=== PATIENT | male | born 1940 | race Caucasian/White ===

== ENCOUNTER → 2016-09-02 | Outpatient (CLI) | payer MEDICARE ==
[~2016-09-02] MED LIST: APIX2.5T PO; CARV12.5 PO; CRES10TA PO; DILT180C56 PO; FENO50TA PO; GLIM4 PO; JANU100T PO; LISI-360 PO; METF500 PO; OMEP20TA PO
[2016-09-02 07:55] LABS: BASOPHIL % 0.7 % (0.0-2.0); EOSINOPHIL # 0.3 TH/MM3 (0-0.4); HEMATOCRIT 43.7 % (39.0-51.0); HEMO FLAGS DIFF FINAL; LYMPH % 25.5 % (9.0-44.0); LYMPHOCYTE # 1.7 TH/MM3 (1.0-4.8); MEAN CELL VOLUME 85.2 FL (80.0-100.0); MEAN CORPUSCULAR HEMOGLOBIN 28.8 PG (27.0-34.0); MEAN CORPUSCULAR HGB CONC 33.8 % (32.0-36.0); MONO % 10.3 % (0.0-8.0); NEUT % 59.5 % (16.0-70.0); PLATELET COUNT 164 TH/MM3 (150-450); RED BLOOD COUNT 5.13 MIL/MM3 (4.50-5.90); RED CELL DISTRIBUTION WIDTH 14.9 % (11.6-17.2); WHITE BLOOD COUNT 6.7 TH/MM3 (4.0-11.0)
[2016-09-02 08:21] LABS: ANION GAP 10 MEQ/L (5-15); AST (GOT) 24 U/L (15-37); BICARBONATE 24.3 MEQ/L (21.0-32.0); BLOOD UREA NITROGEN 17 MG/DL (7-18); CHLORIDE 106 MEQ/L (98-107); GLOMERULAR FILTRATION RATE 69 ML/MIN (>89); GLUCOSE,FASTING 145 MG/DL (74-99); POTASSIUM 3.6 MEQ/L (3.5-5.1); SODIUM (NA) 140 MEQ/L (136-145)
[2016-09-02 08:23] LABS: BLOOD, URINE NEG (NEG); GLUCOSE,URINE NEG (NEG); KETONE, URINE NEG (NEG); NITRITE,URINE NEG (NEG); PH, URINE 5.5 (5.0-8.5); SQUAMOUS EPITHELIAL CELL URINE <1 /hpf (0-5); URINE COLOR YELLOW (YELLW/STRAW)
[2016-09-02 08:25] LABS: COMMENT (UR) CULTURE INDICATED; CULTURE IF INDICATED CULTURE INDICATED
[2016-09-02 08:31] LABS: ALKALINE PHOSPHATASE 63 U/L (45-117); ALT (GPT) 37 U/L (12-78); HDL CHOLESTEROL 45.5 MG/DL (40.0-60.0); LDL CHOLESTEROL 73 MG/DL (0-99); TOTAL BILIRUBIN ADULT 0.4 MG/DL (0.2-1.0)
[2016-09-02 17:32] LABS: HEMOGLOBIN A1a 0.9 %; HEMOGLOBIN A1b 2.2 %; HEMOGLOBIN Ao 82.3 %; HEMOGLOBIN LA1C 2.4 %; HEMOGLOBIN P3 4.3 %
== END ==
LOC: CLAB 07:18
PROVIDERS: ATTEND Internal Medicine
DX: I10 Essential (primary) hypertension (principal); E78.00 Pure hypercholesterolemia, unspecified; E11.65 Type 2 diabetes mellitus with hyperglycemia; B95.2 Enterococcus as the cause of diseases classified elsewhere; R82.90 Unspecified abnormal findings in urine; Z12.5 Encounter for screening for malignant neoplasm of prostate
CPT/HCPCS: 36415; 80053; 80061; 81001; 82043; 83036; 84443; 85025; 87086; G0103; 87077; 87186

== ENCOUNTER → 2016-12-17 | Outpatient (CLI) | payer MEDICARE ==
[2016-12-17 08:03] LABS: ANION GAP 9 MEQ/L (5-15); AST (GOT) 22 U/L (15-37); BICARBONATE 26.3 MEQ/L (21.0-32.0); BLOOD UREA NITROGEN 34 MG/DL (7-18); CHLORIDE 106 MEQ/L (98-107); GLOMERULAR FILTRATION RATE 27 ML/MIN (>89); GLUCOSE,FASTING 155 MG/DL (74-99); POTASSIUM 4.1 MEQ/L (3.5-5.1); SODIUM (NA) 141 MEQ/L (136-145)
[2016-12-17 08:06] LABS: ALKALINE PHOSPHATASE 67 U/L (45-117); ALT (GPT) 16 U/L (12-78); HDL CHOLESTEROL 44.1 MG/DL (40.0-60.0); LDL CHOLESTEROL 85 MG/DL (0-99); TOTAL BILIRUBIN ADULT 0.4 MG/DL (0.2-1.0)
[2016-12-17 12:36] LABS: HEMOGLOBIN A1a 1.2 %; HEMOGLOBIN A1b 2.1 %; HEMOGLOBIN Ao 81.1 %; HEMOGLOBIN LA1C 2.4 %; HEMOGLOBIN P3 4.2 %
== END ==
LOC: CLAB 07:13
PROVIDERS: ATTEND Internal Medicine
DX: E11.65 Type 2 diabetes mellitus with hyperglycemia (principal)
CPT/HCPCS: 36415; 80053; 80061; 83036

== ENCOUNTER 2017-06-06 14:27 | Inpatient (IN) | payer MEDICARE ==
[~2017-06-06] VITALS: Ht 175.3 cm; Wt 72.6 kg
[2017-06-06 14:30] VITALS: BP 130/89; PULSE 119; RESP 18; TEMP 98.6; O2SAT 90
[2017-06-06] MEDS ORDERED: MORPHINE SULFATE 4 MG/ML INJ IV PUSH ONE (15:00)
[2017-06-06] MEDS ORDERED: ONDANSETRON HCL 4 MG/2 ML VIAL IVP ONE (15:00)
[2017-06-06] MEDS ORDERED: SODIUM CHLORIDE 0.9% FLUSH 10 ML FLUSH IVF PRN (15:00)
--- NOTE | 2017-06-06 15:06 | PD ---
HPI . Dyspnea Chief Complaint: GI Complaint Time Seen by Provider: 14:55 Travel History International Travel<30 days: No Contact w/Intl Traveler<30days: No History of Present Illness HPI This patient presents with a chief complaint of dyspnea. Patient states that he had "food poisoning" last night. He states he had several episodes of emesis last night and then 3 more episodes of emesis today. He has not had any diarrhea. He does admit to some diffuse abdominal pain which she believes is soreness due to vomiting. He states that he had the onset of the shortness of breath at about the same time that he started vomiting. He has not noted any exacerbating or relieving factors as far as shortness of breath is concerned. He denies any history of COPD or CHF. He has not had a cough or fever. The dyspnea is mild. PFSH Past Medical History Hx Anticoagulant Therapy: Yes Arthritis: No Asthma: No Atrial Fibrillation: Yes Autoimmune Disease: No Blood Disorders: No Anxiety: No Depression: No Heart Rhythm Problems: Yes (A-Fib) Cancer: No Cardiac Catheterization: Yes Cardiovascular Problems: Yes High Cholesterol: Yes Chemotherapy: No Chest Pain: No Congestive Heart Failure: No COPD: No Cerebrovascular Accident: Yes Coronary Artery Disease: Yes Diabetes: Yes Diminished Hearing: No Endocrine: Yes Gastrointestinal Disorders: Yes GERD: No Glaucoma: No Genitourinary: Yes Headaches: No Hepatitis: No Hiatal Hernia: Yes (REPAIRED WITH MESH) Hypertension: Yes Immune Disorder: No Implanted Vascular Access Dvce: Yes Kidney Stones: Yes Musculoskeletal: Yes Neurologic: Yes (TIA SEP 2008 AND CVA HX) Psychiatric: No Reproductive: No Respiratory: Yes Migraines: No Myocardial Infarction: No Radiation Therapy: No Renal Failure: No Seizures: No Sleep Apnea: No Thyroid Disease: No Ulcer: No Past Surgical History Abdominal Surgery: Yes (HIATAL HERNIA; LEFT AND RIGHT INGUINAL HERNIA) AICD: No Arteriovenous Shunt: No Body Medical Devices: WIRE MESH R/T HERNIA REPAIR/3 STENTS Cardiac Surgery: Yes (HX OF CAD WITH STENT PLACEMENT.) Coronary Artery Bypass Graft: No Coronary Stent: Yes ("3 STENTS,TWO STENTS IN 2005 AND ONE STENT IN 1999") Ear Surgery: No Endocrine Surgery: No Eye Surgery: Yes (TRINI CATARCTS REMOVED [id number]) Genitourinary Surgery: Yes ( RENAL CALCULI) Insulin Pump: No Joint Replacement: No Pacemaker: No Other Surgery: Yes ("EARLY 70'S,RIGHT AND LEFT INGUINAL HERNIAS") Social History Alcohol Use: No Tobacco Use: No (quit 20 years ago) Substance Use: No Allergies-Medications (Allergen,Severity, Reaction): Coded Allergies: penicillin G (Unverified Allergy, Unknown, 06/06/17) acetaminophen (Unverified Adverse Reaction, Intermediate, VOMITING, ) propoxyphene (Unverified Adverse Reaction, Intermediate, VOMITING, ) Reported Meds & Prescriptions Reported Meds & Active Scripts Active Review of Systems Except as stated in HPI: all other systems reviewed are Neg General / Constitutional: No: Fever, Chills Cardiovascular: No: Chest Pain or Discomfort Respiratory: Positive: Shortness of Breath Gastrointestinal: Positive: Nausea, Vomiting (last episode of emesis was this morning.), Abdominal Pain, No: Diarrhea Genitourinary: No: Urgency, Frequency, Dysuria Physical Exam Narrative GENERAL: A found the patient sitting on the side of the bed panting. However, he is able to speak in complete sentences and his sats are in the mid 90s. SKIN: warm/dry. HEAD: Normocephalic. Atraumatic. EYES: Pupils equal and round. No scleral icterus. No injection or drainage. ENT: No nasal bleeding or discharge. Mucous membranes pink and moist. NECK: Trachea midline. Full range of motion without pain.. CARDIOVASCULAR: Regular rate and rhythm. Heart sounds were normal. RESPIRATORY: No accessory muscle use. Clear to auscultation. Breath sounds equal bilaterally. He is hyperventilating but his lungs are clear. GASTROINTESTINAL: Abdomen soft. Left sided tenderness. No guarding or rebound. Bowel sounds present. Nondistended. MUSCULOSKELETAL: No obvious deformities. NEUROLOGICAL: Awake and alert. No obvious cranial nerve deficits. Motor grossly within normal limits. Normal speech. PSYCHIATRIC: Appropriate mood and affect; insight and judgment normal. Data Data Last Documented VS Vital Signs Date Time Temp Pulse Resp B/P (MAP) Pulse Ox O2 Delivery O2 Flow Rate FiO2 06/06/17 16:18 18 06/06/17 15:42 98 Room Air 06/06/17 15:42 104 133/91 (105) 06/06/17 14:30 98.6 Orders Orders Complete Blood Count With Diff (06/06/17 14:55) Comprehensive Metabolic Panel (06/06/17 14:55) B-Type Natriuretic Peptide (06/06/17 14:55) Troponin I (06/06/17 14:55) Urinalysis - C+S If Indicated (06/06/17 14:55) Iv Access Insert/Monitor (06/06/17 14:55) Electrocardiogram (06/06/17 14:55) Ecg Monitoring (06/06/17 14:55) Oximetry (06/06/17 14:55) Oxygen Administration (06/06/17 14:55) Chest, Single Ap (06/06/17 14:55) Sodium Chloride 0.9% Flush (Ns Flush) (06/06/17 15:00) Lipase (06/06/17 14:55) Lactic Acid (06/06/17 14:55) Ct Abd/Pel W Iv Contrast(Rout) (06/06/17 14:55) Morphine Inj (Morphine Inj) (06/06/17 15:00) Ondansetron Inj (Zofran Inj) (06/06/17 15:00) Nitroglycerin 2% Oint (Nitroglycerin 2% (06/06/17 16:45) Furosemide Inj (Lasix Inj) (06/06/17 16:45) Urine Culture (06/06/17 16:10) Admit Order (Ed Use Only) (06/06/17 ) Vital Signs (Adult) Q4H (06/06/17 17:18) Diet Heart Healthy (06/06/17 Dinner) Activity Oob With Assistance (06/06/17 17:18) Notify Dr: Other (06/06/17 17:18) Labs Laboratory Tests Test 06/06/17 15:35 06/06/17 16:10 White Blood Count 9.0 TH/MM3 Red Blood Count 5.12 MIL/MM3 Hemoglobin 15.0 GM/DL Hematocrit 44.1 % Mean Corpuscular Volume 86.2 FL Mean Corpuscular Hemoglobin 29.2 PG Mean Corpuscular Hemoglobin Concent 33.9 % Red Cell Distribution Width 14.5 % Platelet Count 191 TH/MM3 Mean Platelet Volume 7.9 FL Neutrophils (%) (Auto) 73.1 % Lymphocytes (%) (Auto) 16.0 % Monocytes (%) (Auto) 8.6 % Eosinophils (%) (Auto) 1.5 % Basophils (%) (Auto) 0.8 % Neutrophils # (Auto) 6.6 TH/MM3 Lymphocytes # (Auto) 1.4 TH/MM3 Monocytes # (Auto) 0.8 TH/MM3 Eosinophils # (Auto) 0.1 TH/MM3 Basophils # (Auto) 0.1 TH/MM3 CBC Comment DIFF FINAL Differential Comment Blood Urea Nitrogen 16 MG/DL Creatinine 1.04 MG/DL Random Glucose 178 MG/DL Total Protein 7.3 GM/DL Albumin 3.8 GM/DL Calcium Level 8.6 MG/DL Alkaline Phosphatase 70 U/L Aspartate Amino Transf (AST/SGOT) 26 U/L Alanine Aminotransferase (ALT/SGPT) 29 U/L Total Bilirubin 0.9 MG/DL Sodium Level 137 MEQ/L Potassium Level 3.8 MEQ/L Chloride Level 105 MEQ/L Carbon Dioxide Level 23.8 MEQ/L Anion Gap 8 MEQ/L Estimat Glomerular Filtration Rate 69 ML/MIN Lactic Acid Level 1.3 mmol/L Troponin I 0.27 NG/ML B-Type Natriuretic Peptide 801 PG/ML Lipase 95 U/L Urine Color YELLOW Urine Turbidity CLEAR Urine pH 5.5 Urine Specific [place] 1.024 Urine Protein 300 mg/dL Urine Glucose (UA) 300 mg/dL Urine Ketones NEG mg/dL Urine Occult Blood SMALL Urine Nitrite NEG Urine Bilirubin NEG Urine Urobilinogen LESS THAN 2.0 MG/DL Urine Leukocyte Esterase TRACE Urine RBC 3 /hpf Urine WBC 9 /hpf Urine Squamous Epithelial Cells <1 /hpf Urine Mucus FEW /lpf Microscopic Urinalysis Comment CULTURE INDICATED MDM Medical Decision Making Medical Screen Exam Complete: Yes Emergency Medical Condition: Yes Medical Record Reviewed: Yes (medical history is significant for CAD status post stents 2, AF, DM, HTN.) Interpretation(s) EKG shows atrial fibrillation with a rate of 106. No acute ischemic changes. Differential Diagnosis Differential diagnosis of dyspnea includes but is not limited to congestive heart failure, pneumonia, wheezing, pneumothorax, pulmonary embolism Narrative Course This patient presents with dyspnea which started after he started vomiting. His lungs are clear and his sats are good. However, he is tachypneic. I have initiated a dyspnea workup including a chest x-ray, BNP, troponin and EKG. I have also ordered a CT of his abdomen because of the abdominal tenderness. Abdominal labs are also pending. CBC & BMP Diagram 06/06/17 15:35 Total Protein 7.3, Albumin 3.8, Calcium Level 8.6, Alkaline Phosphatase 70, Aspartate Amino Transf (AST/SGOT) 26, Alanine Aminotransferase (ALT/SGPT) 29, Total Bilirubin 0.9 trop 0.27 I have not initiated Lovenox or heparin for this patient because he is on Eliquis. Physician Communication Physician Communication Dr. Evan Lester requested that the patient be admitted to the hospitalist service. Dr. Yu will admit. Diagnosis Primary Impression: NSTEMI (non-ST elevated myocardial infarction) Admitting Information Admitting Physician Requests: Admit Disposition: DISCHARGE HOME Condition: Stable Ramila Valles MD Jun 06, 2017 15:06
--- NOTE | 2017-06-06 15:22 | RADRPT ---
EXAM DATE/TIME: 06/06/2017 15:01 [facility] COMPARISON: CHEST SINGLE AP, May 06, 2016, 17:52. INDICATIONS : Short of breath. MEDICAL HISTORY : Diabetes mellitus type II. Hypertension SURGICAL HISTORY : Coronary artery stent. Hiatal hernia surgery. ENCOUNTER: Initial ACUITY: 1 day PAIN SCORE: 0/10 LOCATION: Bilateral FINDINGS: A single AP portable erect view of the chest was obtained and now demonstrates mild streaky opacity i n the perihilar regions both lung bases left greater than right. The heart size is mildly enlarged. T here is blunting of the lateral costophrenic angle. Atherosclerotic change is again noted in the aort a. The bony thorax remains intact with overlying electrocardiogram leads. CONCLUSION: New mild streaky opacity in both lungs left greater than right with mild cardiomegaly and small left effusion. The findings are most consistent with mild or early congestive heart failure. Jasbir Xie MD on June 06, 2017 at 15:19 Board Certified Radiologist. This report was verified electronically.
[2017-06-06 15:42] VITALS: BP 133/91; PULSE 104; RESP 18; O2SAT 98
[2017-06-06 15:44] LABS: AUTOMATED NEUTROPHIL # 6.6 TH/MM3 (1.8-7.7); BASOPHIL # 0.1 TH/MM3 (0-0.2); BASOPHIL % 0.8 % (0.0-2.0); EOSINOPHIL # 0.1 TH/MM3 (0-0.4); EOSINOPHIL % 1.5 % (0.0-4.0); HEMATOCRIT 44.1 % (39.0-51.0); LYMPHOCYTE # 1.4 TH/MM3 (1.0-4.8); MEAN CELL VOLUME 86.2 FL (80.0-100.0); MEAN CORPUSCULAR HEMOGLOBIN 29.2 PG (27.0-34.0); MEAN CORPUSCULAR HGB CONC 33.9 % (32.0-36.0); MEAN PLATELET VOLUME 7.9 FL (7.0-11.0); MONO % 8.6 % (0.0-8.0); MONOCYTE # 0.8 TH/MM3 (0-0.9); NEUT % 73.1 % (16.0-70.0); PLATELET COUNT 191 TH/MM3 (150-450); RED BLOOD COUNT 5.12 MIL/MM3 (4.50-5.90); RED CELL DISTRIBUTION WIDTH 14.5 % (11.6-17.2)
[2017-06-06 15:57] LABS: ALBUMIN 3.8 GM/DL (3.4-5.0); ALT (GPT) 29 U/L (12-78); AST (GOT) 26 U/L (15-37); BICARBONATE 23.8 MEQ/L (21.0-32.0); BLOOD UREA NITROGEN 16 MG/DL (7-18); CALCIUM 8.6 MG/DL (8.5-10.1); CHLORIDE 105 MEQ/L (98-107); CREATININE 1.04 MG/DL (0.60-1.30); GLOMERULAR FILTRATION RATE 69 ML/MIN (>89); GLUCOSE,RANDOM 178 MG/DL (74-106); LIPASE 95 U/L (73-393); SODIUM (NA) 137 MEQ/L (136-145)
[2017-06-06 16:00] LABS: ALKALINE PHOSPHATASE 70 U/L (45-117); TOTAL BILIRUBIN ADULT 0.9 MG/DL (0.2-1.0); TOTAL PROTEIN 7.3 GM/DL (6.4-8.2); TROPONIN I 0.27 NG/ML (0.02-0.05)
[2017-06-06] MEDS ORDERED: NITROGLYCERIN 2% OINT 1 GM PACKET TOPICAL ONE (16:45)
[2017-06-06] MEDS ORDERED: FUROSEMIDE 40 MG/4 ML VIAL IV PUSH ONE (16:45)
[2017-06-06 16:52] LABS: BILIRUBIN, URINE NEG (NEG); BLOOD, URINE SMALL (NEG); GLUCOSE,URINE 300 mg/dL (NEG); KETONE, URINE NEG (NEG); MUCUS URINE FEW /lpf (OCC); NITRITE,URINE NEG (NEG); PH, URINE 5.5 (5.0-8.5); SQUAMOUS EPITHELIAL CELL URINE <1 /hpf (0-5); URINE COLOR YELLOW (YELLW/STRAW); URINE LEUKOCYTE ESTERASE TRACE (NEG)
--- NOTE | 2017-06-06 17:18 | RADRPT ---
EXAM DATE/TIME: 06/06/2017 16:35 [facility] COMPARISON: CT ABDOMEN & PELVIS W CONTRAST, May 06, 2016, 21:50. INDICATIONS : Abdomen pain. IV CONTRAST: 100 cc Omnipaque 350 (iohexol) IV ORAL CONTRAST: No oral contrast ingested. RADIATION DOSE: 6.69 CTDIvol (mGy) MEDICAL HISTORY : Stroke. Cardiovascular disease Hypertension. SURGICAL HISTORY : None. ENCOUNTER: Initial ACUITY: 1 day PAIN SCALE: 5/10 LOCATION: Bilateral abdomen. TECHNIQUE: Volumetric scanning of the abdomen and pelvis was performed. Using automated exposure control and ad justment of the mA and/or kV according to patient size, radiation dose was kept as low as reasonably achievable to obtain optimal diagnostic quality images. DICOM format image data is available electro nically for review and comparison. FINDINGS: LOWER LUNGS: Bilateral pleural effusions measuring up to 4.2 cm. There is some mild adjacent bibasilar atelectasi s. LIVER: Diffuse mild fatty change of the liver. No focal lesions. Hemoclips in the claudio from prior cholecy stectomy. SPLEEN: Normal size without lesion. PANCREAS: Within normal limits. KIDNEYS: Normal in size and shape. There is no mass, stone or hydronephrosis. Bilateral nonobstructing stone s, the largest in the mid/upper pole left kidney measuring 6 mm; the stones are stable compared to pr ior CT April 2016. ADRENAL GLANDS: Within normal limits. VASCULAR: There is no aortic aneurysm. BOWEL/MESENTERY: No dilated loops of small or large bowel. Multiple diverticula in the sigmoid and left colon without radiographic evidence of diverticulitis. The appendix is identified in the right lower quadrant has a normal size and appearance. ABDOMINAL WALL: Within normal limits. RETROPERITONEUM: There is no lymphadenopathy. BLADDER: No wall thickening or mass. REPRODUCTIVE: Within normal limits. INGUINAL: Left inguinal surgery with mesh and anchor screws. No inguinal hernia. MUSCULOSKELETAL: Within normal limits for patient age. CONCLUSION: 1. Moderate-sized bilateral pleural effusions. 2. Diverticulosis of the sigmoid and left colon without radiographic evidence of diverticulitis. 3. Nonobstructing bilateral renal stones, unchanged from prior. Clarence Talbot MD on June 06, 2017 at 17:09 Board Certified Radiologist. This report was verified electronically.
[2017-06-06] MEDS ORDERED: SODIUM CHLORIDE 0.9% FLUSH 10 ML FLUSH IV FLUSH PRN (18:30)
[2017-06-06 18:34] VITALS: BP 134/97
[2017-06-06 19:00] VITALS: BP 178/89; PULSE 123; RESP 22; TEMP 97.3; O2SAT 93
[2017-06-06 20:00] VITALS: BP 112/58; PULSE 53; RESP 18; TEMP 97.9; O2SAT 98
[2017-06-06 20:21] VITALS: PULSE 94
[2017-06-06] MEDS: SODIUM CHLORIDE 0.9% FLUSH 10 ML FLUSH IV FLUSH SCH (20:57)
[2017-06-07] VITALS (7 sets, daily range): BP systolic 92–158; BP diastolic 55–84; PULSE 67–114; RESP 19–22; TEMP 97.4–98; O2SAT 89–97
[2017-06-07] MEDS ORDERED: CRES10TA PO ×2 (00:55→14:58)
[2017-06-07] MEDS ORDERED: LISI-360 PO (00:55)
[2017-06-07] MEDS ORDERED: CARV12.5 PO ×2 (00:55→15:35)
[2017-06-07] MEDS ORDERED: METF500 PO (00:55)
[2017-06-07] MEDS ORDERED: OMEP20TA PO ×2 (00:55→15:35)
[2017-06-07] MEDS ORDERED: JANU100T PO (00:55)
[2017-06-07] MEDS ORDERED: DILT180C56 PO (00:55)
[2017-06-07] MEDS ORDERED: FENO50TA PO (00:55)
[2017-06-07] MEDS ORDERED: GLIM4 PO ×2 (00:55→14:59)
[2017-06-07] MEDS: ONDANSETRON HCL 4 MG/2 ML VIAL IV PUSH PRN ×2 (01:42→12:39)
[2017-06-07] MEDS ORDERED: CARVEDILOL 6.25 MG TAB PO ONE (02:00)
--- NOTE | 2017-06-07 02:06 | HHI.HP ---
HPI Service [facility] Primary Care Physician Valdez Egan MD Admission Diagnosis CHF. elevated trop Diagnoses: Travel History International Travel<30 Days: No Contact w/Intl Traveler <30 Da: No History of Present Illness 76-year-old male with a history of CAD, hypertension, atrial fibrillation who presents with diffuse crampy abdominal pain starting after dinner around 8 PM on 06/05, accompanied by nausea, multiple episodes of nonbloody vomiting. He also reports chest pressure starting on 06/05 around 8 PM as well, however this resolved on presentation to the ER. Did receive Nitropaste. Patient reports that nausea is improving, however still present. Denies any fevers or chills. Reports feeling fine prior to onset of nausea and vomiting. Review of Systems Except as stated in HPI: all other systems reviewed are Neg Past Family Social History Past Medical History CAD with stenting -Baldo 2012 nonischemic. Heart catheterization in 2002 showed severe small vessel disease. Recent chest pain rule out April 2016. Atrial fibrillation Hypertension Hyperlipidemia GERD Diabetes mellitus on oral meds Past Surgical History Heart catheterization with stenting. Inguinal hernia surgery Cataracts Kidney stones removed. Allergies: Coded Allergies: penicillin G (Unverified Allergy, Unknown, 06/06/17) acetaminophen (Unverified Adverse Reaction, Intermediate, VOMITING, ) propoxyphene (Unverified Adverse Reaction, Intermediate, VOMITING, ) Family History Father from heart attack at age 66. Mother from old age. Social History Nonsmoker. Nondrinker. Denies illicit drugs. Physical Exam Vital Signs Vital Signs Date Time Temp Pulse Resp B/P (MAP) Pulse Ox O2 Delivery O2 Flow Rate FiO2 06/07/17 00:00 97.7 86 20 158/84 (108) 97 06/07/17 00:00 Room Air 06/06/17 20:21 94 06/06/17 20:00 97.9 53 18 112/58 (76) 98 06/06/17 20:00 Room Air 06/06/17 19:00 97.3 123 22 178/89 (118) 93 06/06/17 18:34 100 18 134/97 (109) 97 Nasal Cannula 2.00 06/06/17 16:18 18 06/06/17 15:42 98 Room Air 06/06/17 15:42 104 18 133/91 (105) 98 Room Air 06/06/17 14:30 98.6 119 18 130/89 (103) 90 Physical Exam GENERAL: This is a well-nourished, well-developed patient, appears nauseous. alert and oriented 3. SKIN: No rashes, ecchymoses or lesions. Cool and dry. HEAD: Atraumatic. Normocephalic. No temporal or scalp tenderness. EYES: Pupils equal round and reactive. Extraocular motions intact. No scleral icterus. No injection or drainage. ENT: Nose without bleeding, purulent drainage or septal hematoma. Throat without erythema, tonsillar hypertrophy or exudate. Uvula midline. Airway patent. NECK: Trachea midline. No JVD or lymphadenopathy. Supple, nontender, no meningeal signs. CARDIOVASCULAR: Regular rate and rhythm without murmurs, gallops, or rubs. RESPIRATORY: Clear to auscultation. Breath sounds equal bilaterally. No wheezes , rales, or rhonchi. GASTROINTESTINAL: Abdomen soft, non-tender, nondistended. No hepato-splenomegaly , or palpable masses. No guarding. MUSCULOSKELETAL: Extremities without clubbing, cyanosis, or edema. No joint tenderness, effusion, or edema noted. No calf tenderness. Negative Homans sign bilaterally. NEUROLOGICAL: Awake and alert. Cranial nerves II through XII intact. Motor and sensory grossly within normal limits. Five out of 5 muscle strength in all muscle groups. Normal speech. Laboratory Laboratory Tests Test 06/06/17 15:35 06/06/17 16:10 06/07/17 00:55 White Blood Count 9.0 Red Blood Count 5.12 Hemoglobin 15.0 Hematocrit 44.1 Mean Corpuscular Volume 86.2 Mean Corpuscular Hemoglobin 29.2 Mean Corpuscular Hemoglobin Concent 33.9 Red Cell Distribution Width 14.5 Platelet Count 191 Mean Platelet Volume 7.9 Neutrophils (%) (Auto) 73.1 Lymphocytes (%) (Auto) 16.0 Monocytes (%) (Auto) 8.6 Eosinophils (%) (Auto) 1.5 Basophils (%) (Auto) 0.8 Neutrophils # (Auto) 6.6 Lymphocytes # (Auto) 1.4 Monocytes # (Auto) 0.8 Eosinophils # (Auto) 0.1 Basophils # (Auto) 0.1 CBC Comment DIFF FINAL Differential Comment Blood Urea Nitrogen 16 Creatinine 1.04 Random Glucose 178 Total Protein 7.3 Albumin 3.8 Calcium Level 8.6 Alkaline Phosphatase 70 Aspartate Amino Transf (AST/SGOT) 26 Alanine Aminotransferase (ALT/SGPT) 29 Total Bilirubin 0.9 Sodium Level 137 Potassium Level 3.8 Chloride Level 105 Carbon Dioxide Level 23.8 Anion Gap 8 Estimat Glomerular Filtration Rate 69 Lactic Acid Level 1.3 Troponin I 0.27 0.26 B-Type Natriuretic Peptide 801 Lipase 95 Urine Color YELLOW Urine Turbidity CLEAR Urine pH 5.5 Urine Specific [place] 1.024 Urine Protein 300 Urine Glucose (UA) 300 Urine Ketones NEG Urine Occult Blood SMALL Urine Nitrite NEG Urine Bilirubin NEG Urine Urobilinogen LESS THAN 2.0 Urine Leukocyte Esterase TRACE Urine RBC 3 Urine WBC 9 Urine Squamous Epithelial Cells <1 Urine Mucus FEW Microscopic Urinalysis Comment CULTURE INDICATED Date/Time Source Procedure Growth Status 06/06/17 16:10 Urine Clean Catch Urine Culture Pending Received Result Diagram: 06/06/17 1535 06/06/17 1535 Imaging Last Impressions Chest X-Ray 06/06/17 126 Signed Impressions: Service Date/Time: Tuesday, June 06, 2017 15:01 - CONCLUSION: New mild streaky opacity in both lungs left greater than right with mild cardiomegaly and small left effusion. The findings are most consistent with mild or early congestive heart failure. Jasbir Xie MD Abdomen/Pelvis CT 06/06/17 [id number] Signed Impressions: Service Date/Time: Tuesday, June 06, 2017 16:35 - CONCLUSION: 1. Moderate-sized bilateral pleural effusions. 2. Diverticulosis of the sigmoid and left colon without radiographic evidence of diverticulitis. 3. Nonobstructing bilateral renal stones, unchanged from prior. MD Lex Castilloi VTE Risk Assessment Caprini VTE Risk Assessment: Mod/High Risk (score >= 2) Caprini Risk Assessment Model Point Value = 1 Point Value = 2 Point Value = 3 Point Value = 5 Age 41-60 Minor surgery BMI > 25 kg/m2 Swollen legs Varicose veins or History of unexplained or recurrent spontaneous Oral contraceptives or hormone replacement Sepsis (< 1 month) Serious lung disease, including pneumonia (< 1 month) Abnormal pulmonary function Acute myocardial infarction Congestive heart failure (< 1 month) History of inflammatory bowel disease Medical patient at bed rest Age 61-74 Arthroscopic surgery Major open surgery (> 45 min) Laparoscopic surgery (> 45 min) Malignancy Confined to bed (> 72 hours) Immobilizing plaster cast Central venous access Age >= 75 History of VTE Family history of VTE Factor V Leiden Prothrombin [id number] Lupus anticoagulant Anticardiolipin antibodies Elevated serum homocysteine Heparin-induced thrombocytopenia Other congenital or acquired thrombophilia Stroke (< 1 month) Elective arthroplasty Hip, pelvis, or leg fracture Acute spinal cord injury (< 1 month) Prophylaxis Regimen Total Risk Factor Score Risk Level Prophylaxis Regimen 0-1 Low Early ambulation 2 Moderate Order ONE of the following: *Sequential Compression Device (SCD) *Heparin 5000 units SQ BID 3-4 Higher Order ONE of the following medications: *Heparin 5000 units SQ TID *Enoxaparin/Lovenox 40 mg SQ daily (WT < 150 kg, CrCl > 30 mL/min) *Enoxaparin/Lovenox 30 mg SQ daily (WT < 150 kg, CrCl > 10-29 mL/min) *Enoxaparin/Lovenox 30 mg SQ BID (WT < 150 kg, CrCl > 30 mL/min) AND/OR *Sequential Compression Device (SCD) 5 or more Highest Order ONE of the following medications: *Heparin 5000 units SQ TID (Preferred with Epidurals) *Enoxaparin/Lovenox 40 mg SQ daily (WT < 150 kg, CrCl > 30 mL/min) *Enoxaparin/Lovenox 30 mg SQ daily (WT < 150 kg, CrCl > 10-29 mL/min) *Enoxaparin/Lovenox 30 mg SQ BID (WT < 150 kg, CrCl > 30 mL/min) AND *Sequential Compression Device (SCD) Assessment and Plan Assessment and Plan //Nausea and vomiting. //Suspected gastroenteritis -Appears to be improving. Likely food poisoning. -LFTs, lipase within normal limits. -Could be atypical presentation of patient's NSTEMI -Zofran when necessary. -Appears euvolemic. Avoid aggressive diuresis, avoid hydration as BNP is 800. -Continue to monitor //CHF exacerbation. //Bilateral pulmonary edema, with bilateral pleural effusions on chest x-ray. -BNP in the 800s on admission. -Echocardiogram pending. -Trending EKGs and troponins as below. Cardiology consulted. -Place on fluid restrictions. As patient is nauseous and vomiting at this time , will avoid aggressive diuresis at this time. Continue to monitor //NSTEMI. //CAD -Currently resolved after nitro paste in the ED. -Troponin 0.26. Possibly secondary to demand ischemia from nausea and vomiting. EKG with no acute changes. -Trend troponins, EKGs. Cardiology consulted. Appreciate assistance. //Atrial fibrillation -Continue diltiazem, carvedilol. cont Eliquis //Diabetes mellitus. Diabetic diet. Insulin by scale. Hold by mouth home meds. //Hypertension. Blood pressure acceptable. Continue home blood pressure meds. //Hyperlipidemia. Continue home medications. Discussed Condition With Patient, nurse Physician Certification 2 Midnight Certification Type: Admission for Inpatient Services Order for Inpatient Services The services are ordered in accordance with Medicare regulations or non- Medicare payer requirements, as applicable. In the case of services not specified as inpatient-only, they are appropriately provided as inpatient services in accordance with the 2-midnight benchmark. Estimated LOS (days): 2 days is the estimated time the patient will need to remain in the hospital, assuming treatment plan goals are met and no additional complications. Post-Hospital Plan: Not yet determined Victor Hugo Richter MD Jun 07, 2017 02:06
[2017-06-07] MEDS ORDERED: INSULIN ASPART SUPPLEMENTAL SCALE SQ SCH (08:00)
[2017-06-07] MEDS: INSULIN ASPART SUPPLEMENTAL SCALE SQ SCH ×5 (08:00→20:53)
[2017-06-07] MEDS ORDERED: FUROSEMIDE 40 MG/4 ML VIAL IVP SCH (09:00)
[2017-06-07] MEDS ORDERED: APIXABAN 2.5 MG TABLET PO SCH (09:00)
[2017-06-07 09:14] LABS: BICARBONATE 27.5 MEQ/L (21.0-32.0); CALCIUM 8.6 MG/DL (8.5-10.1); CREATININE 1.1 MG/DL (0.60-1.30)
[2017-06-07] MEDS: PANTOPRAZOLE SOD 20 MG DELAYED RELEASE TAB PO SCH (09:20)
[2017-06-07] MEDS: CARVEDILOL 6.25 MG TAB PO SCH ×2 (09:20→20:52)
[2017-06-07] MEDS: DILTIAZEM-CD 180 MG CAP ER PO SCH (09:20)
[2017-06-07] MEDS: ASPIRIN 81 MG CHEW TAB CHEW SCH (09:21)
[2017-06-07] MEDS: ATORVASTATIN 20 MG TAB PO SCH (09:21)
--- NOTE | 2017-06-07 12:38 | HHI.PR ---
Subjective Remarks Follow-up nausea, vomiting, abdominal pain and chest pain. Complains of dry heaves. Also developed dizziness while being examined. He was sitting upright at that time. Improved shortness of breath on room air but prefers to use oxygen. Denies sick contacts, recent travel, well water and seafood ingestion. 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 Objective Vitals Vital Signs Date Time Temp Pulse Resp B/P (MAP) Pulse Ox O2 Delivery O2 Flow Rate FiO2 06/07/17 08:00 97.8 90 20 92/55 (67) 89 06/07/17 04:00 Room Air 06/07/17 04:00 97.9 114 22 94/55 (68) 94 06/07/17 00:00 97.7 86 20 158/84 (108) 97 06/07/17 00:00 Room Air 06/06/17 20:21 94 06/06/17 20:00 97.9 53 18 112/58 (76) 98 06/06/17 20:00 Room Air 06/06/17 19:00 97.3 123 22 178/89 (118) 93 06/06/17 18:34 100 18 134/97 (109) 97 Nasal Cannula 2.00 06/06/17 16:18 18 06/06/17 15:42 98 Room Air 06/06/17 15:42 104 18 133/91 (105) 98 Room Air 06/06/17 14:30 98.6 119 18 130/89 (103) 90 I/O 06/06/17 06/06/17 06/06/17 06/07/17 06/07/17 06/07/17 07:00 15:00 23:00 07:00 15:00 23:00 Intake Total 240 ml Balance 240 ml Intake Oral 240 ml # Voids 3 # Bowel Movements 0 Result Diagram: 06/06/17 1535 06/07/17 0730 Imaging Last Impressions Chest X-Ray 06/06/[id number] Signed Impressions: Service Date/Time: Tuesday, June 06, 2017 15:01 - CONCLUSION: New mild streaky opacity in both lungs left greater than right with mild cardiomegaly and small left effusion. The findings are most consistent with mild or early congestive heart failure. Jasbir Xie MD Abdomen/Pelvis CT [id number]/06/171454 Signed Impressions: Service Date/Time: Tuesday, June 06, 2017 16:35 - CONCLUSION: 1. Moderate-sized bilateral pleural effusions. 2. Diverticulosis of the sigmoid and left colon without radiographic evidence of diverticulitis. 3. Nonobstructing bilateral renal stones, unchanged from prior. Clarence Talbot MD Objective Remarks GENERAL: This is a well-nourished, well-developed patient, appears nauseous. alert and oriented 3. SKIN: No rashes, ecchymoses or lesions. Cool and dry. NECK: Trachea midline. No JVD or lymphadenopathy. Supple, nontender, no meningeal signs. CARDIOVASCULAR: Regular rate and rhythm without murmurs, gallops, or rubs. RESPIRATORY: Decreased Breath sounds equal bilaterally. No wheezes, rales, or rhonchi. GASTROINTESTINAL: Abdomen soft, non-tender, nondistended. No guarding. MUSCULOSKELETAL: Extremities without clubbing, cyanosis, or edema. No joint tenderness, effusion, or edema noted. No calf tenderness. Negative Homans sign bilaterally. NEUROLOGICAL: Awake and alert. Cranial nerves II through XII intact. Motor and sensory grossly within normal limits. Five out of 5 muscle strength in all muscle groups. Normal speech. A/P Problem List: (1) NSTEMI (non-ST elevated myocardial infarction) ICD Code: I21.4 - Non-ST elevation (NSTEMI) myocardial infarction Status: Acute Assessment and Plan Nausea and vomiting. Suspected gastroenteritis -Appears to be improving. Likely food poisoning. -LFTs, lipase within normal limits. -Could be atypical presentation of patient's NSTEMI -Zofran when necessary. -Appears euvolemic. Avoid aggressive diuresis, avoid hydration as BNP is 800. -Continue to monitor CHF exacerbation. Bilateral pulmonary edema, with bilateral pleural effusions on chest x-ray. -BNP in the 800s on admission. -Echocardiogram pending. -Cardiology consulted. -Place on fluid restrictions. As patient is nauseous and vomiting at this time , will avoid aggressive diuresis at this time. Continue to monitor NSTEMI. CAD -Currently resolved after nitro paste in the ED. -Troponin 0.26. Possibly secondary to demand ischemia from nausea and vomiting. -EKG with nonspecific ST-T changes -Continue aspirin, Coreg and Lipitor Atrial fibrillation with controlled medical response -Continue diltiazem, carvedilol. cont Eliquis Diabetes mellitus. Diabetic diet. Insulin by scale. Hold by mouth home meds. Hypertension. Blood pressure low normal. Continue home blood pressure meds with hold parameters. Hyperlipidemia. Continue home medications. Discharge Planning Awaiting cardiology input. May need to hold Eliquis if cardiac intervention is recommended Galdino Martinez MD Jun 07, 2017 12:38
[2017-06-07] MEDS ORDERED: FUROSEMIDE 20 MG/2 ML VIAL IV PUSH ONE (13:30)
[2017-06-07] MEDS: SODIUM CHLORIDE 0.9% FLUSH 10 ML FLUSH IV FLUSH SCH ×2 (14:09→20:52)
[2017-06-07] MEDS ORDERED: APIX2.5T PO (15:02)
[2017-06-07] MEDS ORDERED: VICT18IN SQ (15:09)
[2017-06-07] MEDS ORDERED: SITA50 PO (15:35)
[2017-06-07] MEDS ORDERED: METF500T PO (15:35)
[2017-06-07] MEDS ORDERED: FENO145T2 PO (15:35)
[2017-06-07] MEDS ORDERED: CARD180C5 PO (15:35)
[2017-06-07] MEDS ORDERED: GLIM4TAB PO (15:35)
[2017-06-07] MEDS ORDERED: LISI10TA3 PO (15:35)
[2017-06-07] MEDS ORDERED: ROSU10 PO (15:35)
--- NOTE | 2017-06-07 18:11 | ECHRPT ---
Indication: Heart Failure CONCLUSIONS Mildly dilated left ventricle. Wall thickness is normal. The left ventricular systolic function is severely reduced with an estimated ejection fraction in th e range of 20%. The left atrial size is mildly dilated. Mild mitral valve regurgitation. Mitral annular calcification is present. Trace aortic valve regurgitation. There ismild to moderate tricuspid regurgitation. There is estimated moderate pulmonary hypertension present (54 mmHg). BP: / HR: Rhythm: MEASUREMENTS (Male / Female) Normal Values Technical Quality:Good 2D ECHO LV Diastolic Diameter PLAX 5.5 cm 4.2 - 5.9 / 3.9 - 5.3 cm LV Systolic Diameter PLAX 4.9 cm IVS Diastolic Thickness 0.9 cm 0.6 - 1.0 / 0.6 - 0.9 cm LVPW Diastolic Thickness 0.7 cm 0.6 - 1.0 / 0.6 - 0.9 cm LV Relative Wall Thickness 0.3 RV Internal Dim ED PLAX 1.8 cm LA Systolic Diameter LX 4.6 cm 3.0 - 4.0 / 2.7 - 3.8 cm M-MODE Aortic Root Diameter MM 3.3 cm AV Cusp Separation MM 2.1 cm DOPPLER MR Peak Velocity 494.0 cm/s MR Peak Gradient 97.6 mmHg Mitral E Point Velocity 83.9 cm/s TR Peak Velocity 331.0 cm/s TR Peak Gradient 43.8 mmHg Right Atrial Pressure 10.0 mmHg Pulmonary Artery Systolic Pressu 53.8 mmHg Right Ventricular Systolic Press 53.8 mmHg FINDINGS LEFT VENTRICLE Mildly dilated left ventricle. Wall thickness is normal. The left ventricular systolic function is severely reduced with an estimated ejection fraction in th e range of 20%. RIGHT VENTRICLE Normal right ventricular size and systolic function. LEFT ATRIUM The left atrial size is mildly dilated. RIGHT ATRIUM The right atrial size is normal. ATRIAL SEPTUM Normal atrial septal thickness without atrial level shunting by limited color doppler interrogation. AORTA The aortic root and proximal ascending aorta are normal in size on limited imaging. MITRAL VALVE Mild mitral valve regurgitation. Mitral annular calcification is present. AORTIC VALVE Trace aortic valve regurgitation. TRICUSPID VALVE There is mild to moderate tricuspid regurgitation. There is estimated moderate pulmonary hypertension present (54 mmHg). PULMONARY VALVE No pulmonary valve regurgitation or stenosis. VESSELS The inferior vena cava is normal in size. PERICARDIUM No pericardial effusion. Abdullahi London MD (Electronically Signed) Final Date:07 June 2017 18:11
--- NOTE | 2017-06-07 20:40 | EKG ---
Date Performed: 06/07/2017 Time Performed: 05:59:12 PTAGE: 76 years EKG: Atrial fibrillation Poor R wave progression - probable normal variant Lateral ST-T changes may be due to myocardial ischemia Abnormal ECG PREVIOUS TRACING : 06/07/2017 01.02 DOCTOR: Abdullahi London Interpretating Date/Time 06/07/2017 20:38:14
--- NOTE | 2017-06-07 20:42 | EKG ---
Date Performed: 06/07/2017 Time Performed: 01:02:44 PTAGE: 76 years EKG: Atrial fibrillation with rapid ventricular response Poor R wave progression - probable norm al variant Lateral ST-T changes are nonspecific Abnormal ECG NO PREVIOUS TRACING DOCTOR: Abdullahi London Interpretating Date/Time 06/07/2017 20:39:25
[2017-06-07] MEDS: APIXABAN 2.5 MG TABLET PO SCH (20:52)
--- NOTE | 2017-06-07 20:52 | EKG ---
Date Performed: 06/06/2017 Time Performed: 16:01:39 PTAGE: 76 years EKG: ATRIAL FIBRILLATION WITH RAPID VENTRICULAR RESPONSE NONSPECIFIC T-WAVE ABNORMALITY ABNORMAL RHYTHM ECG PREVIOUS TRACING : 05/07/2016 01.38 DOCTOR: Abdullahi London Interpretating Date/Time 06/07/2017 20:46:39
[2017-06-08] VITALS: BP 112/61; PULSE 80; RESP 20; TEMP 97.7; O2SAT 95
[2017-06-08 04:00] VITALS: BP 115/57; PULSE 63; RESP 19; TEMP 97.9; O2SAT 96
[2017-06-08 08:39] LABS: BICARBONATE 23.8 MEQ/L (21.0-32.0); CALCIUM 8.9 MG/DL (8.5-10.1); CREATININE 1.59 MG/DL (0.60-1.30); MAGNESIUM 1.6 MG/DL (1.5-2.5)
--- NOTE | 2017-06-08 08:51 | MB ---
cc: STEPHANIE MILLER M.D. DATE OF CONSULTATION: 06/08/2017 REASON FOR CONSULTATION Congestive heart failure, and elevated cardiac enzymes. HISTORY OF PRESENT ILLNESS Mr. Quiroz is a 76-year-old white gentleman well-known to me with history of ASHD, remote myocardial infarction, permanent atrial fibrillation, and diabetes mellitus, who presented to the hospital over the weekend because of protracted nausea and vomiting this past Thursday. He said he was not feeling well that entire day. He had some lower abdominal discomfort as well. He came to the emergency room and has been feeling slightly better since then. He denies ever having any chest discomfort. He noted some increasing dyspnea over the past couple of days, mostly with exertion. He denies orthopnea, PND or lower extremity edema type symptoms. I have not seen him since October of 2015. He was out of town and had rescheduled his followup appointments and has not yet been able to follow up with me. He is sitting up in a chair today and he says except for being a little lightheaded at times is feeling better. He was found to have slightly elevated troponin I's in the 0.27 range and reduced left ventricular function by echocardiography. He was given intravenous furosemide for suspected congestive heart failure over the past 2 days and has diuresed and is less short of breath. PAST MEDICAL HISTORY As mentioned above includin. Permanent atrial fibrillation. 2. CAD. 3. Hyperlipidemia. 4. GERD. 5. Previous GI bleeding. 6. Possible previous CVAs or TIAs. 7. Multiple myocardial infarctions in the remote past. 8. Chronic kidney disease. He did have a Lexiscan stress test which was normal back in 2012. He had an echocardiogram at [facility] in August 2015 and the left ventricular ejection fraction showed mild global hypokinesis with ejection fraction of 45-50% at that time. PAST SURGICAL HISTORY His past surgical history includes: 1. Multiple cardiac catheterizations. He underwent stenting of the LAD, ramus intermedius branches back in 2004 at an outside hospital. He has been managed medically since that time. 2. He has had inguinal hernia surgery. 3. Cataracts. 4. Kidney stones removed. ALLERGIES PENICILLIN G, ACETAMINOPHEN, PROPXYPHENE. MEDICATIONS Current medications: 1. Eliquis 2.5 mg p.o. b.i.d. 2. Aspirin 81 mg daily. 3. Cardizem CD 180 mg daily. 4. Lipitor 20 mg daily. 5. Protonix 20 mg daily. 6. Carvedilol 6.25 mg q.12 hours. 7. Novolog insulin sliding scale. 8. Zofran 4 mg IV q.6 hours p.r.n. 9. He received intravenous furosemide yesterday and the day before. According to my outpatient records, he had been on: 1. ESTELLE inhibitor therapy at home in the form of Lisinopril. 2. He was receiving Crestor 20 mg a day. 3. Tricor 145 mg daily. He tells me that he had been taking all of his medications since the last time I saw him as prescribed. FAMILY HISTORY Family history is noncontributory. REVIEW OF SYSTEMS Except for that mentioned in HPI his complete 12-point review of systems otherwise negative. PHYSICAL EXAMINATION GENERAL: Physical exam reveals an elderly thin white male sitting up in a chair in no distress at this time. VITAL SIGNS: Blood pressure is 115/57 mmHg, heart rate is 63 and irregular, respiratory rate 19, temperature 97.9, oxygen saturation 96% on room air. HEENT: Head is normocephalic and atraumatic. Pupils equal, round and reactive to light. Sclerae anicteric. Extraocular movements intact. NECK: The neck is supple. There is no adenopathy. No jugular venous distension at 90 degrees. Carotid upstrokes are normal. No bruits. LUNGS: Lungs are clear. HEART: PMI is laterally displaced. S1-S2 are irregular. I hear no murmurs, gallops or rubs at this time. ABDOMEN: Bowel sounds present, soft, nontender. No hepatosplenomegaly, masses or bruits. EXTREMITIES: No cyanosis, clubbing or edema. Perfusion is adequate in the upper and lower extremities. There are no femoral bruits. EKG Shows atrial fibrillation with a ventricular response of 92 beats per minute. There are diffuse ST-T-wave abnormalities, abnormal EKG. No significant changes except for some lateral T-wave abnormalities since admission 2 days ago. ECHOCARDIOGRAM His echocardiogram from June 07 showed a left ventricular ejection fraction, now with global hypokinesis in the range of 20-25%. I reviewed the study images myself. Mild mitral and tricuspid regurgitation, there were dilated biatrial enlargement and left and right ventricular enlargement. IMAGING STUDIES A chest x-ray on admission showed a new mild streaky opacity in both lungs, left greater than right with mild cardiomegaly and small left pleural effusion, findings most consistent with mild or early congestive heart failure. Abdominal pelvis CT showed moderate-sized bilateral pleural effusions, diverticulosis of the sigmoid and left colon without evidence of diverticulitis, nonobstructing bilateral renal artery stones unchanged from prior studies. LABORATORY DATA CBC white count 9.0, hemoglobin 15.0, hematocrit 44.1, platelet count 191,000. Chemistries sodium 139, potassium 3.6, chloride 103, CO2 27.5, BUN 19, creatinine 1.1, glucose 166. His initial troponin I on June 06 at 1532 was 0.27 with a BNP of 801. Repeat troponin I at 0055 on June 07 was 0.26 and third set on June 07 at 0730 was 0.21. DIAGNOSIS 1. Suspected acute gastroenteritis, currently resolved. 2. Acute systolic congestive heart failure, improving. 3. Cardiomyopathy with severe left ventricular dysfunction. 4. ASHD status post remote PCI with stent implants of LAD and ramus intermedius in 2004. 5. Permanent atrial fibrillation. 6. Long-term anticoagulation therapy. 7. History of GI bleeding, recently stable. 8. History of CVA/TIA. 9. Diabetes mellitus type 2. 10. Chronic kidney disease RECOMMENDATIONS The patient's left ventricular function appears to have deteriorated since his last study available from August of 2015 when his ejection fraction was around 45%. It is uncertain what the etiology of this is. His current findings do not indicate an acute myocardial infarction. He did have decompensated heart failure on admission and that is improving. I discussed plans with the patient. I think adjusting his medication for improvement of his heart failure to stabilize him is appropriate at this point. I will discontinue intravenous furosemide and start spironolactone 25 mg daily and resume ESTELLE inhibitor therapy in the form of ramipril 1.25 mg p.o. b.i.d. and advance this as tolerated by blood pressure. The plan is to continue to treat him conservatively at this time. I will be going out of town tomorrow and the patient is currently on anticoagulation therapy with Apixaban, so no invasive procedures will be scheduled at this time but I will plan to bring him back later as an outpatient for repeat cardiac catheterization for reevaluation of his reduced left ventricular function. I discussed this all with him in detail and he is in agreement to the above outlined plan. I will follow up with him tomorrow, if he is feeling better on his new medical regimen, he can probably be discharged to home either tomorrow or Thursday with further outpatient workup from a cardiac standpoint. Further recommendations will follow when I see him in the morning. I discussed the plans with Dr. Martinez. Thank you for allowing me to participate in the care of this patient. MD KAREEN Ramirez/MIAH /7:58 AM /8:16 AM OBDULIO
[2017-06-08] MEDS: ATORVASTATIN 20 MG TAB PO SCH (09:00)
[2017-06-08] MEDS ORDERED: SPIRONOLACTONE 25 MG TAB PO SCH (09:00)
[2017-06-08] MEDS: ASPIRIN 81 MG CHEW TAB CHEW SCH (09:00)
[2017-06-08] MEDS: DILTIAZEM-CD 180 MG CAP ER PO SCH (09:00)
[2017-06-08] MEDS: PANTOPRAZOLE SOD 20 MG DELAYED RELEASE TAB PO SCH (09:00)
[2017-06-08] MEDS: CARVEDILOL 6.25 MG TAB PO SCH ×2 (09:00→20:28)
[2017-06-08] MEDS: SODIUM CHLORIDE 0.9% FLUSH 10 ML FLUSH IV FLUSH SCH ×2 (09:02→20:30)
[2017-06-08] MEDS: APIXABAN 2.5 MG TABLET PO SCH ×2 (09:34→20:28)
[2017-06-08] MEDS: INSULIN ASPART SUPPLEMENTAL SCALE SQ SCH ×4 (09:34→20:29)
--- NOTE | 2017-06-08 09:41 | MB ---
cc: STEPHANIE SÁNCHEZ M.D., DAVID A. M.D. DATE OF CONSULTATION: 06/07/2017 REASON FOR CONSULTATION/CHIEF COMPLAINT: Abdominal discomfort, nausea and vomiting, elevated troponin. REQUESTING PHYSICIAN: Dr. Yu. PATIENT'S PROFESSIONAL NURSING ASSISTANT: Dr. Sánchez. CONSULTING PHYSICIAN: Dr. Lester. IMPRESSION: 1. Elevated troponin with abdominal discomfort and chest pressure ? NSTEMI. 2. Atherosclerotic heart disease, severe small vessel disease. 3. Atrial fibrillation. 4. Hypertension. 5. Hyperlipidemia. 6. History of Gastroesophageal reflux disease (GERD) with previous GI bleed. 7. History of diabetes mellitus. RECOMMENDATIONS: The patient says he is not feeling any better and is feeling short of breath. He has a prior history of cardiac catheterization with stenting unknown vessels. Dr. Sánchez will re-evaluate in the morning and see if he needs to go to cardiac catheterization. The patient seems to think at this point that this is his ischemic presentation. SUBJECTIVE: Mr. Quiroz is a 76-year-old male with history of coronary artery disease status post previous stenting, hypertension, atrial fibrillation who presented to the emergency room with abdominal discomfort, nausea and vomiting yesterday evening after having it for 24 hours. He had returned from [place], [place] where he said he had been overdoing it and working too hard for the last several weeks. He says he thought maybe he had just overdone it. In retrospect, he thinks maybe this felt the same way as his coronary disease felt in the past and since his troponins are elevated, he is now convinced that this is coronary disease presentation. PAST MEDICAL HISTORY: His past medical history is remarkable for the above as well as: 1. Inguinal hernia surgery. 2. Cataracts. 3. Kidney stone removal. ALLERGIES: 1. PENICILLIN. 2. ACETAMINOPHEN. 3. PROPOXYPHENE. MEDICATIONS: See medication reconciliation record. REVIEW OF SYSTEMS: GI: Previous GI bleed. No hematemesis or melena. RESPIRATORY: He is short of breath. NEUROLOGIC: No history of prior stroke. Other twelve-point review of systems unremarkable. PHYSICAL EXAMINATION: VITAL SIGNS: Blood pressure 130/74, heart rate 88. HEAD, EYES, EARS, NOSE, THROAT: Pupils equal. The sclerae are clear. NECK: The neck veins are not distended. LUNGS: The lungs are clear. CARDIAC: Irregular rhythm. No murmurs or gallops. ABDOMEN: The abdomen is soft. There is no organomegaly. EXTREMITIES: Without edema. NEUROLOGIC: Right-handed, fluent speech, moves all extremities. Gait is intact. LABORATORY DATA: White count on presentation was 9000. His troponin was elevated. It has gone down to 0.21 now. BNP was 801. IMAGING STUDIES: Chest x-ray showed new mild streaky opacities in both lungs, right greater than the left, mild cardiomegaly and a small left pleural effusion most common with mild to moderate congestive heart failure. EKGS: Electrocardiogram shows atrial fibrillation, controlled ventricular response. DISCUSSION: Dr. Sánchez will re-evaluate in the morning. He currently appears stable. MD MICHAEL Renae/YASMINE /3:53 PM /9:30 AM
[2017-06-08] MEDS ORDERED: VICTOZA 0.6 MG SQ SCH (10:00)
[2017-06-08] MEDS: RAMIPRIL 1.25 MG CAP PO SCH ×2 (11:42→20:28)
[2017-06-08 12:21] VITALS: BP 99/65; PULSE 79; RESP 18; TEMP 97.9; O2SAT 94
--- NOTE | 2017-06-08 12:23 | HHI.PR ---
Subjective Remarks Follow-up heart failure. Feeling better denies chest pain, shortness of breath and nausea. Discussed with RN and cardiology Objective Vitals Vital Signs Date Time Temp Pulse Resp B/P (MAP) Pulse Ox O2 Delivery O2 Flow Rate FiO2 06/08/17 04:00 97.9 63 19 115/57 (76) 96 06/08/17 04:00 Room Air 06/08/17 00:00 97.7 80 20 112/61 (78) 95 06/08/17 00:00 Room Air 06/07/17 20:18 67 06/07/17 20:00 Room Air 06/07/17 20:00 97.4 82 19 138/81 (100) 96 06/07/17 16:00 97.5 75 20 100/58 (72) 89 I/O 06/07/17 06/07/17 06/07/17 06/08/17 06/08/17 06/08/17 06:59 14:59 22:59 06:59 14:59 22:59 Intake Total 240 ml 720 ml 240 ml 30 ml Output Total 720 ml 500 ml 100 ml Balance 240 ml 0 ml -260 ml -70 ml Intake Oral 240 ml 720 ml 240 ml 30 ml Output Urine Total 720 ml 500 ml 100 ml # Voids 3 2 # Bowel Movements 0 0 Result Diagram: 06/06/17 1535 06/08/17 0712 Objective Remarks GENERAL: This is a well-nourished, well-developed patient in no distress SKIN: No rashes, ecchymoses or lesions. Cool and dry. NECK: Trachea midline. No JVD or lymphadenopathy. Supple, nontender, no meningeal signs. CARDIOVASCULAR: Regular rate and rhythm without murmurs, gallops, or rubs. RESPIRATORY: Decreased Breath sounds equal bilaterally. No wheezes, rales, or rhonchi. GASTROINTESTINAL: Abdomen soft, non-tender, nondistended. No guarding. MUSCULOSKELETAL: Extremities without clubbing, cyanosis, or edema. No joint tenderness, effusion, or edema noted. No calf tenderness. Negative Homans sign bilaterally. NEUROLOGICAL: Awake and alert. Cranial nerves II through XII intact. Motor and sensory grossly within normal limits. Five out of 5 muscle strength in all muscle groups. Normal speech. A/P Problem List: (1) NSTEMI (non-ST elevated myocardial infarction) ICD Code: I21.4 - Non-ST elevation (NSTEMI) myocardial infarction Status: Acute Assessment and Plan Nausea and vomiting. Suspected gastroenteritis -Appears to be improving. Likely food poisoning. -LFTs, lipase within normal limits. -Could be atypical presentation of patient's NSTEMI -Zofran when necessary. -Appears euvolemic. Avoid aggressive diuresis, avoid hydration as BNP is 800. -Continue to monitor Acute systolic CHF exacerbation. Improving status post IV Lasix with EF of 20% Bilateral pulmonary edema, with bilateral pleural effusions on chest x-ray. -BNP in the 800s on admission. -Cardiology consulted. -Place on fluid restrictions. Continue ramipril, Aldactone and Coreg. Continue to monitor NSTEMI. CAD -Currently resolved after nitro paste in the ED. -Troponin 0.26. Possibly secondary to demand ischemia from nausea and vomiting. -EKG with nonspecific ST-T changes -Continue aspirin, Coreg and Lipitor. Cardiology plans to do cardiac catheterization when renal function improves likely outpatient Atrial fibrillation with controlled medical response -Continue diltiazem, carvedilol. cont Eliquis Diabetes mellitus. Diabetic diet. Insulin by scale. Restart home medications Hypertension. Blood pressure low normal. Continue home blood pressure meds with hold parameters. Hyperlipidemia. Continue home medications. Acute kidney injury secondary to dehydration from gastroenteritis, heart failure and meds. Nonoliguric. Avoid nephrotoxin. Repeat BMP and mag in the morning Discharge Planning Not ready for discharge. May need to hold Eliquis if cardiac intervention is recommended Galdino Martinez MD Jun 08, 2017 12:23
[2017-06-08 16:12] VITALS: BP 132/61; PULSE 65; RESP 17; TEMP 97.9; O2SAT 94
[2017-06-08 19:41] VITALS: PULSE 73
[2017-06-08 20:27] VITALS: BP 113/55; PULSE 73; RESP 18; TEMP 97.3; O2SAT 96
[2017-06-09] VITALS: BP 98/50; PULSE 65; RESP 18; TEMP 97.3; O2SAT 92
[2017-06-09 04:00] VITALS: BP 96/62; PULSE 50; RESP 18; TEMP 97.3; O2SAT 94
[2017-06-09 08:00] VITALS: BP 91/55; PULSE 65; RESP 20; TEMP 99.1; O2SAT 97
[2017-06-09] MEDS: INSULIN ASPART SUPPLEMENTAL SCALE SQ SCH (08:00)
[2017-06-09 08:05] LABS: BICARBONATE 21.2 MEQ/L (21.0-32.0); CALCIUM 8.2 MG/DL (8.5-10.1); CREATININE 1.83 MG/DL (0.60-1.30); MAGNESIUM 1.5 MG/DL (1.5-2.5)
--- NOTE | 2017-06-09 08:06 | PD.CARD.PN ---
Subjective Subjective Remarks Feeling better. Denies any recurrent nausea, vomiting or abdominal pain. Denies SOB or CP. Ambulating without difficulty. Today he told me that he may have not been taking all his medications as directed over the past few months. Objective Medications Current Medications Medications (Trade) Dose Ordered Sig/Víctor Route Start Time Stop Time Status Last Admin (NS Flush) 2 ml BID IV FLUSH 06/06/17 21:00 06/08/17 20:30 (NS Flush) 2 ml UNSCH PRN IV FLUSH 06/06/17 18:30 (Aspirin Chew) 81 mg DAILY CHEW 06/07/17 09:00 06/08/17 09:00 (Zofran Inj) 4 mg Q6HR PRN IV PUSH 06/07/17 00:45 06/07/17 12:39 (Cardizem Cd) 180 mg DAILY PO 06/07/17 09:00 06/08/17 09:00 (Lipitor) 20 mg DAILY PO 06/07/17 09:00 06/08/17 09:00 (Protonix) 20 mg DAILY PO 06/07/17 09:00 06/08/17 09:00 (Coreg) 6.25 mg Q12HR PO 06/07/17 09:00 06/08/17 20:28 (Eliquis) 2.5 mg BID PO 06/07/17 21:00 06/08/17 20:28 (NovoLOG SUPPLEMENTAL SCALE) 1 ACHS SLIDING SCALE SQ 06/07/17 08:00 06/08/17 20:29 (Altace) 1.25 mg BID PO 06/08/17 09:00 06/08/17 20:28 (Aldactone) 25 mg DAILY PO 06/08/17 09:00 06/08/17 09:34 (Tricor) 145 mg DAILY PO 06/09/17 09:00 (Januvia) 50 mg BID PO 06/08/17 10:00 06/08/17 20:28 Patient Own Medication PT OWN MED: VICT... DAILY SQ 06/08/17 10:00 Future Hold (Cipro) 250 mg Q12HR PO 06/09/17 09:00 UNV Vital Signs / I&O Vital Signs Date Time Temp Pulse Resp B/P (MAP) Pulse Ox O2 Delivery O2 Flow Rate FiO2 06/09/17 04:00 97.3 50 18 96/62 (73) 94 06/09/17 00:00 97.3 65 18 98/50 (66) 92 06/08/17 20:32 Nasal Cannula 2.00 06/08/17 20:27 97.3 73 18 113/55 (74) 96 06/08/17 19:41 73 06/08/17 19:35 Room Air 06/08/17 16:12 97.9 65 17 132/61 (84) 94 06/08/17 12:21 97.9 79 18 99/65 (76) 94 I/O 06/08/17 06/08/17 06/08/17 06/09/17 06/09/17 06/09/17 07:00 15:00 23:00 07:00 15:00 23:00 Intake Total 240 ml 30 ml 720 ml 250 ml Output Total 500 ml 100 ml 50 ml Balance -260 ml -70 ml 720 ml 200 ml Intake Oral 240 ml 30 ml 720 ml 250 ml Output Urine Total 500 ml 100 ml 50 ml # Voids 3 # Bowel Movements 0 0 0 Physical Exam VSS, afebrile No JVD Lungs: CTA Heart: Irreg, s1, s2, no murmur, gal. Ext: No C/C/E Neuro: Non-focal. Laboratory Laboratory Tests Test 06/06/17 15:35 06/06/17 16:10 06/07/17 07:30 06/09/17 07:00 White Blood Count 9.0 TH/MM3 Red Blood Count 5.12 MIL/MM3 Hemoglobin 15.0 GM/DL Hematocrit 44.1 % Mean Corpuscular Volume 86.2 FL Mean Corpuscular Hemoglobin 29.2 PG Mean Corpuscular Hemoglobin Concent 33.9 % Red Cell Distribution Width 14.5 % Platelet Count 191 TH/MM3 Mean Platelet Volume 7.9 FL Neutrophils (%) (Auto) 73.1 % Lymphocytes (%) (Auto) 16.0 % Monocytes (%) (Auto) 8.6 % Eosinophils (%) (Auto) 1.5 % Basophils (%) (Auto) 0.8 % Neutrophils # (Auto) 6.6 TH/MM3 Lymphocytes # (Auto) 1.4 TH/MM3 Monocytes # (Auto) 0.8 TH/MM3 Eosinophils # (Auto) 0.1 TH/MM3 Basophils # (Auto) 0.1 TH/MM3 CBC Comment DIFF FINAL Differential Comment Lactic Acid Level 1.3 mmol/L Blood Urea Nitrogen 16 MG/DL 43 MG/DL Creatinine 1.04 MG/DL 1.83 MG/DL Random Glucose 178 MG/DL 201 MG/DL Total Protein 7.3 GM/DL Albumin 3.8 GM/DL Calcium Level 8.6 MG/DL 8.2 MG/DL Alkaline Phosphatase 70 U/L Aspartate Amino Transf (AST/SGOT) 26 U/L Alanine Aminotransferase (ALT/SGPT) 29 U/L Total Bilirubin 0.9 MG/DL Sodium Level 137 MEQ/L 132 MEQ/L Potassium Level 3.8 MEQ/L 4.4 MEQ/L Chloride Level 105 MEQ/L 100 MEQ/L Carbon Dioxide Level 23.8 MEQ/L 21.2 MEQ/L B-Type Natriuretic Peptide 801 PG/ML Lipase 95 U/L Urine Color YELLOW Urine Turbidity CLEAR Urine pH 5.5 Urine Specific [place] 1.024 Urine Protein 300 mg/dL Urine Glucose (UA) 300 mg/dL Urine Ketones NEG mg/dL Urine Occult Blood SMALL Urine Nitrite NEG Urine Bilirubin NEG Urine Urobilinogen LESS THAN 2.0 MG/DL Urine Leukocyte Esterase TRACE Urine RBC 3 /hpf Urine WBC 9 /hpf Urine Squamous Epithelial Cells <1 /hpf Urine Mucus FEW /lpf Microscopic Urinalysis Comment CULTURE INDICATED Troponin I 0.21 NG/ML Magnesium Level 1.5 MG/DL Anion Gap 11 MEQ/L Estimat Glomerular Filtration Rate 36 ML/MIN Laboratory Tests Test 06/06/17 15:35 06/06/17 16:10 06/07/17 00:55 06/07/17 07:30 Neutrophils (%) (Auto) 73.1 % (16.0-70.0) Monocytes (%) (Auto) 8.6 % (0.0-8.0) Random Glucose 178 MG/DL (74-106) 166 MG/DL (74-106) Estimat Glomerular Filtration Rate 69 ML/MIN (>89) 65 ML/MIN (>89) Troponin I 0.27 NG/ML (0.02-0.05) 0.26 NG/ML (0.02-0.05) 0.21 NG/ML (0.02-0.05) B-Type Natriuretic Peptide 801 PG/ML (0-100) Urine Protein 300 mg/dL (NEG-TRACE) Urine Glucose (UA) 300 mg/dL (NEG) Urine Occult Blood SMALL (NEG) Urine Leukocyte Esterase TRACE (NEG) Urine WBC 9 /hpf (0-5) Urine Mucus FEW /lpf (OCC) Blood Urea Nitrogen 19 MG/DL (7-18) Test 06/08/17 07:12 06/09/17 07:00 Blood Urea Nitrogen 33 MG/DL (7-18) 43 MG/DL (7-18) Creatinine 1.59 MG/DL (0.60-1.30) 1.83 MG/DL (0.60-1.30) Random Glucose 226 MG/DL (74-106) 201 MG/DL (74-106) Sodium Level 134 MEQ/L (136-145) 132 MEQ/L (136-145) Estimat Glomerular Filtration Rate 42 ML/MIN (>89) 36 ML/MIN (>89) Calcium Level 8.2 MG/DL (8.5-10.1) Assessment and Plan Problem List: (1) Gastroenteritis ICD Codes: K52.9 - Noninfective gastroenteritis and colitis, unspecified Status: Resolved (2) H/O heart artery stent ICD Codes: Z95.5 - Presence of coronary angioplasty implant and graft Status: Resolved (3) Permanent atrial fibrillation ICD Codes: I48.2 - Chronic atrial fibrillation Status: Chronic (4) Arteriosclerotic heart disease (ASHD) ICD Codes: I25.10 - Atherosclerotic heart disease of [place] coronary artery without angina pectoris Status: Chronic (5) Acute systolic CHF (congestive heart failure) ICD Codes: I50.21 - Acute systolic (congestive) heart failure Status: Resolved (6) Cardiomyopathy ICD Codes: I42.9 - Cardiomyopathy, unspecified Status: Chronic (7) CKD (chronic kidney disease) ICD Codes: N18.9 - Chronic kidney disease, unspecified Status: Chronic (8) Hypertension ICD Codes: I10 - Essential (primary) hypertension Status: Chronic (9) DM (diabetes mellitus) ICD Codes: E11.9 - Type 2 diabetes mellitus without complications Status: Chronic (10) Hyperlipidemia ICD Codes: E78.5 - Hyperlipidemia, unspecified Status: Chronic Assessment and Plan CV and hemodynamics stable. Patient asymptomatic. Azotemia noted due to recent diuresis. Hold spironolactone x 2 days. OK to discharge home from cardiac standpoint on other current meds. Will repeat BMP on Thursday and see him back in the office Thursday next week for re-evaluation. Plans discussed with patient, medical staff physician and Dr. Martinez. Thank you. Problem Qualifiers (1) DM (diabetes mellitus): Alonso Sánchez MD Jun 09, 2017 08:06
[2017-06-09] MEDS ORDERED: ALTA1.256 PO (08:29)
[2017-06-09] MEDS: SODIUM CHLORIDE 0.9% FLUSH 10 ML FLUSH IV FLUSH SCH (09:00)
[2017-06-09] MEDS ORDERED: CIPROFLOXACIN 250 MG TAB PO SCH (09:00)
[2017-06-09] MEDS ORDERED: FENOFIBRATE 145 MG TAB PO SCH (09:00)
[2017-06-09] MEDS: CARVEDILOL 6.25 MG TAB PO SCH (09:07)
[2017-06-09] MEDS: ASPIRIN 81 MG CHEW TAB CHEW SCH (09:07)
[2017-06-09] MEDS: ATORVASTATIN 20 MG TAB PO SCH (09:07)
[2017-06-09] MEDS: DILTIAZEM-CD 180 MG CAP ER PO SCH (09:07)
[2017-06-09] MEDS: RAMIPRIL 1.25 MG CAP PO SCH (09:08)
[2017-06-09] MEDS: APIXABAN 2.5 MG TABLET PO SCH (09:08)
[2017-06-09] MEDS: PANTOPRAZOLE SOD 20 MG DELAYED RELEASE TAB PO SCH (09:09)
[2017-06-09] MEDS ORDERED: SPIR25 PO (09:23)
[2017-06-09 10:00] VITALS: PULSE 90
[2017-06-09] MEDS ORDERED: CARV6.25 PO (11:10)
[2017-06-09] MEDS ORDERED: SITA50 PO (11:29)
[2017-06-09] MEDS ORDERED: ASPI81CH25 CHEW (11:29)
[2017-06-09] MEDS ORDERED: CIPR250T52 PO (11:29)
--- NOTE | 2017-06-09 11:30 | HHI.DCPOC ---
Discharge Care Plan Diagnosis: (1) Acute systolic CHF (congestive heart failure) Your Health Problems Are: Difficulty with ADL Exercise Tolerance Goals to Promote Your Health * To prevent worsening of your condition and complications * To maintain your health at the optimal level Directions to Meet Your Goals Take your medications as prescribed Follow your dietary instruction Follow activity as directed Keep your appointments as scheduled Take your immunizations and boosters as scheduled If your symptoms worsen call your PCP, if no PCP go to Urgent Care Center or Emergency Room Smoking is Dangerous to Your Health. Avoid second hand smoke Call the 24-hour hour crisis hotline for domestic abuse at Galdino Martinez MD Jun 09, 2017 11:30
--- NOTE | 2017-06-09 11:30 | HHI.DCPOC ---
Discharge Care Plan Diagnosis: (1) Acute systolic CHF (congestive heart failure) Your Health Problems Are: Difficulty with ADL Exercise Tolerance Goals to Promote Your Health * To prevent worsening of your condition and complications * To maintain your health at the optimal level Directions to Meet Your Goals Take your medications as prescribed Follow your dietary instruction Follow activity as directed Keep your appointments as scheduled Take your immunizations and boosters as scheduled If your symptoms worsen call your PCP, if no PCP go to Urgent Care Center or Emergency Room Smoking is Dangerous to Your Health. Avoid second hand smoke Call the 24-hour hour crisis hotline for domestic abuse at Galdino Martinez MD Jun 09, 2017 11:30
--- NOTE | 2017-06-09 11:30 | HHI.DCPOC ---
Discharge Care Plan Diagnosis: (1) Acute systolic CHF (congestive heart failure) Your Health Problems Are: Difficulty with ADL Exercise Tolerance Goals to Promote Your Health * To prevent worsening of your condition and complications * To maintain your health at the optimal level Directions to Meet Your Goals Take your medications as prescribed Follow your dietary instruction Follow activity as directed Keep your appointments as scheduled Take your immunizations and boosters as scheduled If your symptoms worsen call your PCP, if no PCP go to Urgent Care Center or Emergency Room Smoking is Dangerous to Your Health. Avoid second hand smoke Call the 24-hour hour crisis hotline for domestic abuse at Galdino Martinez MD Jun 09, 2017 11:30
--- NOTE | 2017-06-09 11:35 | HHI.DS ---
Discharge Summary Admission Date Jun 06, 2017 at 17:20 Discharge Date: Jun 09, 2017 Admitting Diagnosis CHF. elevated trop (1) NSTEMI (non-ST elevated myocardial infarction) ICD Code: I21.4 - Non-ST elevation (NSTEMI) myocardial infarction Diagnosis: Principal Status: Acute Procedures none Brief History - From Admission 76-year-old male with a history of CAD, hypertension, atrial fibrillation who presents with diffuse crampy abdominal pain starting after dinner around 8 PM on 06/05, accompanied by nausea, multiple episodes of nonbloody vomiting. He also reports chest pressure starting on 06/05 around 8 PM as well, however this resolved on presentation to the ER. Did receive Nitropaste. Patient reports that nausea is improving, however still present. Denies any fevers or chills. Reports feeling fine prior to onset of nausea and vomiting. CBC/BMP: 06/06/17 1535 06/09/17 0700 Significant Findings Laboratory Tests Test 06/06/17 15:35 06/06/17 16:10 06/07/17 00:55 06/07/17 07:30 Neutrophils (%) (Auto) 73.1 % (16.0-70.0) Monocytes (%) (Auto) 8.6 % (0.0-8.0) Random Glucose 178 MG/DL (74-106) 166 MG/DL (74-106) Estimat Glomerular Filtration Rate 69 ML/MIN (>89) 65 ML/MIN (>89) Troponin I 0.27 NG/ML (0.02-0.05) 0.26 NG/ML (0.02-0.05) 0.21 NG/ML (0.02-0.05) B-Type Natriuretic Peptide 801 PG/ML (0-100) Urine Protein 300 mg/dL (NEG-TRACE) Urine Glucose (UA) 300 mg/dL (NEG) Urine Occult Blood SMALL (NEG) Urine Leukocyte Esterase TRACE (NEG) Urine WBC 9 /hpf (0-5) Urine Mucus FEW /lpf (OCC) Blood Urea Nitrogen 19 MG/DL (7-18) Test 06/08/17 07:12 06/09/17 07:00 Blood Urea Nitrogen 33 MG/DL (7-18) 43 MG/DL (7-18) Creatinine 1.59 MG/DL (0.60-1.30) 1.83 MG/DL (0.60-1.30) Random Glucose 226 MG/DL (74-106) 201 MG/DL (74-106) Sodium Level 134 MEQ/L (136-145) 132 MEQ/L (136-145) Estimat Glomerular Filtration Rate 42 ML/MIN (>89) 36 ML/MIN (>89) Calcium Level 8.2 MG/DL (8.5-10.1) Imaging Last Impressions Chest X-Ray [id number]/06/[id number] Signed Impressions: Service Date/Time: Tuesday, June 06, 2017 15:01 - CONCLUSION: New mild streaky opacity in both lungs left greater than right with mild cardiomegaly and small left effusion. The findings are most consistent with mild or early congestive heart failure. Jasbir Xie MD Abdomen/Pelvis CT [id number]/06/[id number] Signed Impressions: Service Date/Time: Tuesday, June 06, 2017 16:35 - CONCLUSION: 1. Moderate-sized bilateral pleural effusions. 2. Diverticulosis of the sigmoid and left colon without radiographic evidence of diverticulitis. 3. Nonobstructing bilateral renal stones, unchanged from prior. Clarence Talbot MD PE at Discharge GENERAL: This is a well-nourished, well-developed patient in no distress SKIN: No rashes, ecchymoses or lesions. Cool and dry. NECK: Trachea midline. No JVD or lymphadenopathy. Supple, nontender, no meningeal signs. CARDIOVASCULAR: Regular rate and rhythm without murmurs, gallops, or rubs. RESPIRATORY: Decreased Breath sounds equal bilaterally. No wheezes, rales, or rhonchi. GASTROINTESTINAL: Abdomen soft, non-tender, nondistended. No guarding. MUSCULOSKELETAL: Extremities without clubbing, cyanosis, or edema. No joint tenderness, effusion, or edema noted. No calf tenderness. Negative Homans sign bilaterally. NEUROLOGICAL: Awake and alert. Cranial nerves II through XII intact. Motor and sensory grossly within normal limits. Five out of 5 muscle strength in all muscle groups. Normal speech. Hospital Course Nausea and vomiting. Suspected gastroenteritis -Appears to be improving. Likely food poisoning. -LFTs, lipase within normal limits. -Could be atypical presentation of patient's NSTEMI -Zofran when necessary. -Appears euvolemic. Avoid aggressive diuresis, avoid hydration as BNP is 800. -Continue to monitor Acute systolic CHF exacerbation. Improving status post IV Lasix with EF of 20% Bilateral pulmonary edema, with bilateral pleural effusions on chest x-ray. -BNP in the 800s on admission. -Cardiology consulted. -Place on fluid restrictions. Continue ramipril and Coreg. Aldactone on hold Continue to monitor NSTEMI. CAD -Currently resolved after nitro paste in the ED. -Troponin 0.26. Possibly secondary to demand ischemia from nausea and vomiting. -EKG with nonspecific ST-T changes -Continue aspirin, Coreg and Lipitor. Cardiology plans to do cardiac catheterization when renal function improves likely outpatient Atrial fibrillation with controlled medical response -Continue diltiazem, carvedilol and Eliquis Diabetes mellitus. Diabetic diet. Insulin by scale. Restart home medications Hypertension. Blood pressure low normal. Continue home blood pressure meds with hold parameters. Hyperlipidemia. Continue home medications. Acute kidney injury secondary to dehydration from gastroenteritis, heart failure and meds. Nonoliguric. Avoid nephrotoxin. Repeat BMP and mag 06/11 before starting aldactone Patient is improved clinically and medically stable for discharge. He has no complaints and has been ambulating in the hallway. He is nonoliguric. Pt Condition on Discharge: Stable Discharge Disposition: Discharge Home Discharge Time: > 30 minutes Discharge Instructions DIET: Follow Instructions for: Heart Healthy Diet, Diabetic Diet Activities you can perform: Regular-No Restrictions Activities to Avoid: Driving Follow up Referrals: Cardiology - 1 Week PCP Follow-up - 1 Week with Valdez Egan MD New Orders: BASIC METABOLIC PROF - 06/11/17 New Medications: Carvedilol (Coreg) 6.25 Mg Tab 6.25 MG PO DAILY for Blood Pressure Management, #30 TAB 0 Refills Aspirin (Aspirin Low Strength) 81 Mg Chew 81 MG CHEW DAILY for Prevent Blood Clot, #30 EA Ciprofloxacin (Cipro) 250 Mg Tab 250 MG PO Q12HR for Infection, #14 TAB Ramipril (Altace) 1.25 Mg Cap 1.25 MG PO BID for Blood Pressure Management for 30 Days, #60 CAP 1 Refill Spironolactone (Aldactone) 25 Mg Tab 25 MG PO DAILY for Blood Pressure Management for 30 Days, #30 TAB 1 Refill Take 1 pill daily Start taking medication on 06/12/17 if kidney function is improved. Changed Medications: Sitagliptin (Januvia) 50 Mg Tab 50 MG PO DAILY for Blood Sugar Management, #30 TAB 0 Refills (Changed from: BID) Continued Medications: Apixaban (Eliquis) 2.5 Mg Tab 2.5 MG PO DAILY for Blood Clot Prevention, TAB 0 Refills Diltiazem CD 24 HR (Cardizem CD 24 HR) 180 Mg Caper 180 MG PO DAILY, #30 CAP 0 Refills Fenofibrate (Fenofibrate) 145 Mg Tab 145 MG PO DAILY, #30 TAB 0 Refills Glimepiride (Glimepiride) 4 Mg Tab 4 MG PO BIDAC for Blood Sugar Management, #60 TAB 0 Refills Liraglutide Inj (Victoza Inj) 18 Mg/3 Ml Pen 0.6 MG SQ DAILY, #1 PEN 0 Refills Omeprazole (Omeprazole) 20 Mg Tab 20 MG PO DAILY, #30 TAB 0 Refills Rosuvastatin (Crestor) 10 Mg Tab 10 MG PO HS for Cholesterol Management, #30 TAB 0 Refills Discontinued Medications: Lisinopril (Lisinopril) 10 Mg Tab 10 MG PO DAILY, #30 TAB 0 Refills Galdino Martinez MD Jun 09, 2017 11:34
== END 2017-06-09 11:59 | disposition home or self-care (01) | DRG 291 ==
LOC: NEPC 14:27 → NEDA 17:20 → N04B 18:55
PROVIDERS: ADMIT Internal Medicine; ATTEND Internal Medicine
DX: I13.0 Hypertensive heart and chronic kidney disease with heart failure and stage 1 through stage 4 chronic kidney disease, or unspecified chronic kidney disease (principal); I50.23 Acute on chronic systolic (congestive) heart failure; N17.9 Acute kidney failure, unspecified; E86.0 Dehydration; E11.22 Type 2 diabetes mellitus with diabetic chronic kidney disease; I42.9 Cardiomyopathy, unspecified; I48.2 Chronic atrial fibrillation; E78.5 Hyperlipidemia, unspecified; N20.0 Calculus of kidney; T62.91XA Toxic effect of unspecified noxious substance eaten as food, accidental (unintentional), initial encounter; I25.10 Atherosclerotic heart disease of native coronary artery without angina pectoris; N18.9 Chronic kidney disease, unspecified; K57.30 Diverticulosis of large intestine without perforation or abscess without bleeding; K21.9 Gastro-esophageal reflux disease without esophagitis; K52.9 Noninfective gastroenteritis and colitis, unspecified; I25.2 Old myocardial infarction; Z79.01 Long term (current) use of anticoagulants; Z82.49 Family history of ischemic heart disease and other diseases of the circulatory system; Z86.73 Personal history of transient ischemic attack (TIA), and cerebral infarction without residual deficits; Z87.891 Personal history of nicotine dependence; Z88.0 Allergy status to penicillin; Z88.6 Allergy status to analgesic agent; Z95.5 Presence of coronary angioplasty implant and graft
CPT/HCPCS: 71010; 74177; 80048; 80053; 81001; 82948; 83605; 83690; 83735; 83880; 84484; 85025; 87086; 93005; 93306; 96374; 96375; J1815; J1940; J2270; J2405

== ENCOUNTER 2017-06-29 05:33 | Day surgery (SDC) | payer MEDICARE ==
[~2017-06-29] VITALS: Ht 177.8 cm; Wt 71.4 kg
[~2017-06-29 05:33] MED LIST changes: +ALTA1.256 PO; +ASPI81CH25 CHEW; +CARD180C5 PO; -CARV12.5 PO; +CARV6.25 PO; +CIPR250T52 PO; -CRES10TA PO; -DILT180C56 PO; +FENO145T2 PO; -FENO50TA PO; -GLIM4 PO; +GLIM4TAB PO; -JANU100T PO; -LISI-360 PO; -METF500 PO; -OMEP20TA PO; +OMEP20TA93 PO; +ROSU10 PO; +SITA50 PO; +SPIR25 PO; +VICT18IN SQ
[2017-06-29] MEDS ORDERED: IOHEXOL 350 MG/ML 100 ML BTL (for Cath Lab) OTHER ONE (05:34)
[2017-06-29 06:08] VITALS: BP 152/95; PULSE 99; RESP 18; TEMP 98.6; O2SAT 99
[2017-06-29] MEDS ORDERED: METF500T PO (06:13)
[2017-06-29] MEDS ORDERED: SODIUM CHLOR 0.9% 1000 ML INJ 1,000 ML IV SCH ×2 (06:14→07:59)
[2017-06-29] MEDS ORDERED: ASPIRIN 325 MG TAB PO SCH (06:15)
[2017-06-29] MEDS ORDERED: MIDAZOLAM HCL 2 MG/2 ML VIAL IV PUSH SCH (06:15)
[2017-06-29] MEDS ORDERED: diphenhydrAMINE HCL 50 MG/ML VIAL IV PUSH SCH (06:15)
[2017-06-29] MEDS ORDERED: HEPARIN-NS/PF INJ 1,000 ML ONE (06:57)
[2017-06-29] MEDS ORDERED: MIDAZOLAM HCL 2 MG/2 ML VIAL ONE (06:58)
--- NOTE | 2017-06-29 07:55 | CATHPROC ---
[facility] HIS Report Study Information Study Number Admission Scheduled Start Study Start [id number] Jun 29 2017 5:33AM 06/29/2017 Jun 29 2017 6:56AM [place] Service Cardiac Catheterization Admit Source Facility Department Other [facility] - Mortgage Loan Computation Clerk Physician and Clinical Staff Initial MD Sánchez, Alonso Mortgage BrokerNaomie Denny BSN Mortgage Broker Evan Cid Recorder Donnell Villatoro,ALEENA(BS) Sharon Dumas RCIS TECH2 Procedures Performed Procedure Location (Site) Vessel Name Angiogram LV LV Ventricle Coronary Angiograms LCA Left Coronary Coronary Angiograms RCA Right Coronary L Heart Cath Equipment Time Senior Cost Analyst Description Size Mfg Part Number Used/Scraped TRANSDUCER, TRUWABIDA [id number] 07:09 PRADO CRAIG * Used W/STOCKCOCK *[id number] 07:35 CARDIVA MEDICAL VASCADE, FR6 CLOSURE SYSTEM FR 6\7 Used *[id number] 07:36 CARDIVA MEDICAL VASCADE, FR6 CLOSURE SYSTEM FR 6\7 Used *[id number] *[id number] *[id number] *[id number] 07:09 MEDLINE IND[employer] PACK, CCL CUSTOM * Used *[id number] 07:09 Hypecal PACER PEN, SKIN DUAL W/ RULER * Used *[id number] 07:09 [employer]shop SHEATH, FR6.5 PRELUDE 11CM FR 6.5 038ACT Used *[id number] 07:09 [employer] MEDICAL WIRE, 3MMJ .035 180CM 180CM Used *[id number] 07:09 NAMIC MANIFOLD, 4 PORT * Used *[id number] 07:35 NYCOMED OMNIPAQUE, 300 MG, 50ML 50ML [id number] Used 07:09 NYCOMED OMNIPAQUE, 350 MG, 150ML 150ML [id number] Used [id number] 07:09 [employer] MEDICAL BLANKET,WARM AIR CCL * Used *[id number] History: Current Medications Medication Dosage/Unit Route Frequency Last Date/Time Taken Beta Rio ELIQUIS Statins (any) History: Allergies Allergy Reaction Darvocet-N 100 VOMITING Penicillin propoxyphene VOMITING acetaminophen VOMITING penicillin G allopurinol hydrochlorothiazide potassium citrate History: Risk Factors Family History of Hypertension Dyslipidemia Previous ID Previous Heart Failure Premature CAD Yes Yes No No No Prior Valve Prior PCI Prior CABG Surgery No No No Cerebrovascular Peripheral Artery Chronic Lung On Dialysis Diabetes Diabetes Therapy Disease Disease Disease No Yes No No Yes Oral History: Stress Tests Stress or Imaging Studies Performed No History: Other Current Smoker No Labs Hgb (g/dl) Hct (%) WBC (l/cumm) Platelets (thousands) 11.60-17.00 35.00-51.00 4.00-11.00 150.00-450.00 15.0 44.1 9 191 Glucose (mg/dl) BUN (mg/dl) Creatinine (mg/dl) BUN:Creatinine (1:x) 74.00-106.00 7.00-18.00 0.50-1.30 10.00-20.00 165 15 1.1 13.6 Na (meq/l) K (meq/l) 136.00-145.00 3.50-5.10 140 4.3 CPK-MB (ng/ML) 0.50-3.60 Not Drawn Medication Medication Total Dose (Bolus/Oral) Medication Total Dosage/Unit 1% XYLOCAINE 20 mL FENTANYL 25 mcg VERSED 2 mg Medications (Bolus/Oral) Medication Time Given Dosage/Unit Administered By Reason VERSED 06/29/2017 7:18:11 AM 2 mg Naomie Malin 2 mg VERSED given in lab by Naomie Malin BSN in Right Wrist via Peripheral IV. Ordered by Alonso Patricio. 1% XYLOCAINE 06/29/2017 7:18:52 AM 20 mL Alonso Sánchez 20 mL 1% XYLOCAINE given in lab by Alonso Sánchez in Right Groin via Subcutaneous. Ordered by Alonso Joseph. FENTANYL 06/29/2017 7:19:25 AM 25 mcg Naomie Malin 25 mcg FENTANYL given in lab by Naomie Malin BSN in Right Wrist via Peripheral IV. Ordered by Alonso Sánchez. Medication (Drip) Medication Time Given Dosage/Unit Concentration/Unit Diluent (ml) Solutio n IV Solutions 06/29/2017 6:56:28 AM 0 mL (IV) 500 NaCl .9 Patient arrived on IV Solutions in Right Wrist via Peripheral IV. Pump/Drip Flow = 20 ml/hr using NaC l .9. Initial Case Assessment Cardiovascular HR Rhythm NIBP Chest Pain 91 AFIB 156/103 0 Edema Present Skin color Skin None Normal Warm Dry Circulatory - Right Pulses Dorsalis Pedis Femoral 2 2 Scale (0,1,2,3,4,d) Circulatory - Left Pulses Dorsalis Pedis Femoral 2 2 Scale (0,1,2,3,4,d) Circulatory - Lower Extremities Color Lower Right Color Lower Left Normal Normal Neurological State Oriented to time-place- Alert Moves all extremities person Respiration - General Respiration Rate SpO2 (%) (B/min) 14 97 Chronological Log Time Study Chronological Log 6:55:59 Patient arrived via Bed. 6:56:00 Patient Name, D.O.B, / Armband Verified By R.N. 6:56:01 Consent signed by the physician and the patient and verified by the Mortgage Loan Computation Clerk staff. 6:56:02 Pre-op and post- op instructions given; patient acknowledges understanding of instructions. 6:56:03 Verbal Stimulation=2 Physical Stimulation=2 Airway=2 Respiration=2 TOTAL=8. (0=absent, 1=[place] ited, 2=present) 6:56:16 Patient has been NPO for More than 6Hrs. 6:56:20 Skin Breakdown- 6:56:22 Patient Warmer Placed on the Table. 6:56:27 A # 22 IV was noted in the Wrist (right). Grade = 0 6:56:28 Patient arrived on IV Solutions in Right Wrist via Peripheral IV. Pump/Drip Flow = 20 ml/hr using NaCl .9. 6:56:30 History and physical on the chart or being dictated. Assessment: Initial Case, HR=91 BPM, Rhythm=AFIB, XPOY=361/103 mmhg, Chest Pain=0, Edema=None, Color=Normal, Skin = Warm, Dry Right Pulses: Ben Ped=2, Femoral=2 Left Pulses: Ben Ped=2, Femoral=2 6:56:35 Lower Right Extremities: Color=Normal Lower Left Extremities: Color=Normal Neurological: State=Alert, Ox3, REAVES Respiration: Resp=14 B/min, SpO2=97 % Vitals capture started with the following parameters, Patient=Adult, Interval=5 min, Initial Pre disie=674 mmHg, 6:59:54 Deflation Rate=5 mmHg, Cuff placed on Left Arm 7:00:41 HR=90 bpm, PBLW=188/70 mmhg, SpO2=97.0 %, Resp=9 B/min, Pain=0, Leon=10, Avelar=2 7:05:30 VY=145 bpm, AFDH=851/103 mmhg, SpO2=98.0 %, Resp=15 B/min, Pain=0, Leon=10, Avelar=2 7:09:41 Reference ECG taken 7:09:48 Pressure channel 1 zeroed. 7:10:33 GT=321 bpm, VEBI=580/90 mmhg, SpO2=97.0 %, Resp=17 B/min, Pain=0, Leon=10, Avelar=2 7:10:49 Bilateral groins prepped with 2% chlorhexidine, and draped after a 3 minute waiting time. 7:13:16 MD arrived. 7:15:30 HA=481 bpm, OWLF=889/90 mmhg, SpO2=97.0 %, Resp=13 B/min, Pain=0, Leon=10, Avelar=2 Time Out. Correct patient, correct procedure, correct physician, power injector not loaded with contrast with surgical 7:17:46 team present. Time Out Concurred by MD and individual staff in procedure. 7:18:11 2 mg VERSED given in lab by Naomie Malin BSN in Right Wrist via Peripheral IV. Order ed by Alonso Sánchez. 7:18:18 Case Start 7:18:52 20 mL 1% XYLOCAINE given in lab by Alonso Sánchez in Right Groin via Subcutaneous. Ordered by Alonso Sánchez. 25 mcg FENTANYL given in lab by Naomie Malin BSN in Right Wrist via Peripheral IV. Order ed by Princess 7:19:25 Alonso. 7:20:31 IU=326 bpm, GXHQ=297/91 mmhg, SpO2=96.0 %, Resp=11 B/min, Pain=0, Leon=10, Avelar=2 7:20:47 Access site was Right Femoral Artery. 7:21:09 A SHEATH, FR6.5 PRELUDE 11CM FR 6.5 was advanced into the Fem Art (right) using the Percutan eous technique. A JL 4.0 INFINITI CATHETER FR 6 was advanced over a wire. OMNIPAQUE, 350 MG, 150ML 150ML was use d for 7::44 injections. 7:22:00 The LCA was injected and visualized at various angles. OMNIPAQUE, 350 MG, 150ML 150ML used. Recorded Pressure: Ao, HR=93, Condition=Condition 1 7:22:35 (Aorta) Ao 152/84/109 7:25:32 NO=918 bpm, SNUF=458/105 mmhg, SpO2=92.0 %, Resp=27 B/min, Pain=0, Leon=10, Avelar=2 7:27:02 Catheter was removed A 3DRC INFINITI CATHETER FR 6 was advanced over a wire. OMNIPAQUE, 350 MG, 150ML 150ML was used for 7:27: injections. 7:28:02 The RCA was injected and visualized at various angles. OMNIPAQUE, 350 MG, 150ML 150ML used. 7:30:35 TG=601 bpm, ARXI=062/89 mmhg, SpO2=97.0 %, Resp=16 B/min, Pain=0, Leon=10, Avelar=2 7:30:44 Catheter was removed A PIGTAIL STR INFINITI CATHETER FR 6 was advanced over a wire. OMNIPAQUE, 350 MG, 150ML 150ML was used for 7:30:47 injections. Recorded Pressure: LV, NA=740, Condition=Condition 1 7:31:36 (Left Ventricle) LV 148/18/24 7:32:03 The LV was injected at 12 cc/sec for a total of 36. OMNIPAQUE, 350 MG, 150ML 150ML used. Recorded Pressure: LV, Ao, FI=896, Condition=Condition 1 7:33:16 (Left Ventricle) LV 142/16/21, (Aorta) Ao 141/65/100 7:33:45 Catheter was removed 7:35:00 An injection in the Fem Art (right) was made through the SHEATH, FR6.5 PRELUDE 11CM FR 6.5 . 7:35:08 Case End 7:35:38 VASCADE, FR6 CLOSURE SYSTEM FR 6\7 placement in the Fem Art (right) 7:35:38 EL=321 bpm, RXXC=049/79 mmhg, SpO2=91.0 %, Resp=22 B/min, Pain=0, Leon=10, Avelar=2 7:36:38 Sterile dressing applied to site 7:36:39 No case complications noted. 7:36:40 Cine recording checked. 7:36:44 Bedside Report will be given. 7:36:50 Contrast Scanned 7:36:53 A Left Heart Cath was performed. 7:40:29 XD=933 bpm, FOLK=026/98 mmhg, SpO2=94.0 %, Resp=19 B/min, Pain=0, Leon=10, Avelar=2 7:45:25 Vitals capture stopped. 7:45:30 Patient moved to stretcher End Study - Contrast Media Used In Study Contrast Total Opened (mL) Total Used (mL) Total Wasted (mL) Omnipaque 85 85 0 End Study - Maximum Contrast Load Max Contrast Load (mL) 324.6 End Study - Radiation Exposure Fluoro Time (minutes) 3.3 End Study - Patient Disposition Complications Transferred To No Outpatient Bed
[2017-06-29] MEDS ORDERED: ONDANSETRON HCL 4 MG/2 ML VIAL IV PUSH PRN (08:00)
[2017-06-29] MEDS ORDERED: MISC INFORMATION XX ONE (08:00)
[2017-06-29] MEDS ORDERED: BACITRACIN OINT 0.9 GM PKT TOP ONE (08:00)
[2017-06-29] MEDS ORDERED: SODIUM CHLOR 0.9% 250 ML INJ 250 ML IV PRN (08:00)
[2017-06-29] MEDS ORDERED: ATROPINE SULFATE 1 MG/ML VIAL IV PUSH PRN (08:00)
[2017-06-29] MEDS ORDERED: METOCLOPRAMIDE HCL 10 MG/2 ML VIAL IV PUSH PRN (08:00)
[2017-06-29] MEDS ORDERED: SODIUM CHLORIDE 0.9% FLUSH 10 ML FLUSH IV FLUSH PRN (08:00)
--- NOTE | 2017-06-29 08:20 | MA ---
cc: STEPHANIE MILLER M.D. DATE: June 29, 2017 PROCEDURE PERFORMED Left heart catheterization. Coronary arteriography. Left ventriculography. Right femoral angiography. Vascade closure device right femoral artery. PROCEDURE TECHNIQUE The patient was brought to the cardiac catheterization laboratory and the area of the right groin was prepped and draped in usual sterile manner. Following 10 mL of 1% Xylocaine for local anesthesia the right femoral artery was entered with an 18 gauge needle for placement of a floppy guidewire. A 6-Salvadorean short introducer sheath was placed in the right femoral artery via modified Seldinger technique. Through this introducer sheath a 6-Salvadorean diagnostic catheter system including a JL-4, 3DRC, and straight pigtail were used for left heart study. Multiple projections of left and right coronary arteries were taken and left ventriculogram was done in the WATERS 30 degree projection only. At completion of diagnostic procedure the catheters and introducer were removed and adequate hemostasis was maintained with use of a Vascade device in the right femoral artery following a right femoral angiogram. The patient tolerated the procedure well. There were no immediate complications. HEMODYNAMIC DATA There was no gradient recorded across the aortic valve. Left ventricular end-diastolic pressure is 21 mmHg. For complete hemodynamic details please see accompanying paperwork. ANGIOGRAPHIC FINDINGS LEFT VENTRICLE: Left ventricle demonstrates increased end-systolic and diastolic dimensions. Overall left ventricular contractility is severely impaired. Estimated left ventricular ejection fraction is 30%. No mitral regurgitation is seen. The aortic valve is trileaflet and opens normally. The aortic root and proximal portion of the ascending aorta are normal. LEFT CORONARY ARTERY: Left main trunk: Left main trunk arises normally from the left coronary sinus. This vessel is moderate in caliber and calcified throughout. No significant stenosis. LEFT ANTERIOR DESCENDING ARTERY: The LAD is a moderate caliber vessel whose course is to the apex. The LAD has moderate to heavy calcification throughout the proximal and mid segments. There are multiple areas of up to 30-40% stenosis. A stent is seen in the mid segment which has a 15-20% in-stent stenosis. DIAGONAL: The major diagonal branch is small in caliber and has a 25% proximal stenosis. RAMUS INTERMEDIUS: Large caliber vessel. Diffuse calcification. Diffuse disease with areas of up to 45% stenosis. Stent is seen in the mid segment with a 20-25% in-stent stenosis noted. CIRCUMFLEX: Nondominant. The main circumflex is large in caliber and gives rise to a lateral and posterolateral branch, and a posterior ventricular branch. The main circumflex has moderate luminal irregularities. The lateral branch is moderate in caliber and has a 80-85% stenosis in its proximal segment followed by an area of 75% stenosis in its mid segment. The posterolateral branch is large in caliber and has mild irregularities. The posterior ventricular branch is small in caliber. RIGHT CORONARY ARTERY: Dominant. Overall small-caliber vessel giving rise to two right ventricular marginal branches and a posterior descending branch. There is a 40% tubular narrowing in the proximal to mid segment. There is a second area of 60-70% stenosis at the origin of the posterior descending branch. DIAGNOSIS 1. Moderate three-vessel coronary atherosclerosis. 2. Severe left ventricular dysfunction. COMMENT/RECOMMENDATIONS Angiographically, this patient demonstrates mostly small vessel disease. His left ventricular dysfunction is out of a portion to the extent of his epicardial coronary artery disease and I suspect it is related to a nonischemic etiology. Possibly tachycardia related from his underlying atrial fibrillation. We will continue with conservative management. If he has symptoms related to any of his vascular stenosis we will return to the lab for intervention, specifically to those vessels, but otherwise will continue with conservative medical management. He will be discharged home later today. MD KAREEN Ramirez/MIAH /7:54 AM /8:04 AM
[2017-06-29] MEDS ORDERED: SODIUM CHLORIDE 0.9% FLUSH 10 ML FLUSH IV FLUSH SCH (09:00)
== END 2017-06-29 12:09 | disposition home or self-care (01) ==
LOC: HDIC 05:33 → HDOC 05:33
PROVIDERS: ATTEND Internal Medicine Interventional Cardiology
DX: I25.10 Atherosclerotic heart disease of native coronary artery without angina pectoris (principal); I48.91 Unspecified atrial fibrillation; I42.9 Cardiomyopathy, unspecified; I13.10 Hypertensive heart and chronic kidney disease without heart failure, with stage 1 through stage 4 chronic kidney disease, or unspecified chronic kidney disease; N18.9 Chronic kidney disease, unspecified
CPT/HCPCS: 93458; 99152; 99153; C1760; C1769; C1893; G0269; J1644; J2250; J3010; J7030; Q9967

== ENCOUNTER 2017-07-06 05:34 | Inpatient (IN) | payer MEDICARE ==
[2017-07-06] VITALS (12 sets, daily range): BP systolic 118–205; BP diastolic 64–109; PULSE 94–122; RESP 14–25; TEMP 97.3–100.5; O2SAT 94–100
[~2017-07-06] VITALS: Ht 177.8 cm; Wt 68.9 kg
[~2017-07-06 05:34] MED LIST changes: -CIPR250T52 PO; +METF500T PO
[2017-07-06] MEDS ORDERED: DIPHTH/TETANUS/ACEL PERTUSSIS (BOOSTER) 0.5 ML VIAL/PFS IM ONE (05:45)
[2017-07-06] MEDS ORDERED: ceFAZolin 2 GM PREMIX 50 ML IV ONE (05:45)
[2017-07-06] MEDS ORDERED: SODIUM CHLORIDE 0.9% FLUSH 10 ML FLUSH IVF PRN (05:45)
--- NOTE | 2017-07-06 05:49 | PD ---
HPI Chief Complaint: Fall Time Seen by Provider: 05:41 Travel History International Travel<30 days: No Contact w/Intl Traveler<30days: No Traveled to known affect area: No History of Present Illness HPI The patient is 76 year old male who presents to the [facility] emergency department with a history of being brought in by ambulance services with a report that he had attempted to call his neighbors for help and had garbled speech. When they went to check on the patient the patient was nonverbal and was then able to move his extremities. The patient was noted to have a smear of blood on the wall and a skin tear to the posterior aspect of the right elbow. The patient reportedly according to the neighbor has a history of atrial fibrillation and is chronically anticoagulated on Eliquis. There was a concern that the patient had fallen. The patient was nonverbal improved to the hospital. The patient reportedly had a flaccid right upper arm, spontaneously moving his feet and left arm. The patient was not cooperative in following any commands, however his eyes were open and he was gazing about the room. The patient appeared to try to speak, only sounds were audible. The patient reportedly has a history of stroke, however it is unknown whether he has any residual weakness from his prior stroke. No other history is able to be obtained from the patient is a patient is nonverbal. The patient's history is obtained from reviewing the electronic medical record and also speaking to the patient's only daughter by phone. 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 According to the electronic medical records the patient had recent cardiac catheterization with Dr. Ohara. The patient was noted to have evidence of coronary artery disease with a diminished ejection fraction, no stents were placed at that time. Hx Anticoagulant Therapy: Yes Arthritis: No Asthma: No Atrial Fibrillation: Yes Autoimmune Disease: No Blood Disorders: No Anxiety: No Depression: No Heart Rhythm Problems: Yes (A-Fib) Cancer: No Cardiac Catheterization: Yes Cardiovascular Problems: Yes (afib) High Cholesterol: Yes Chemotherapy: No Chest Pain: No Congestive Heart Failure: No COPD: No Cerebrovascular Accident: Yes Coronary Artery Disease: Yes Diabetes: Yes Patient Takes Glucophage: Yes Diminished Hearing: No Endocrine: Yes Gastrointestinal Disorders: Yes (hx gi surgeries) GERD: No Glaucoma: No Genitourinary: Yes Headaches: No Hepatitis: No Hiatal Hernia: Yes (REPAIRED WITH MESH) Heparin Induced Thrombocytopen: No Hypertension: Yes Immune Disorder: No Implanted Vascular Access Dvce: Yes Kidney Stones: Yes Medical other: Yes (S/P STROKE, TIAS) Musculoskeletal: Yes Neurologic: Yes (TIA SEP 2008 AND CVA HX) Psychiatric: No Reproductive: No Respiratory: Yes Migraines: No Myocardial Infarction: No Radiation Therapy: No Renal Failure: No Seizures: No Sleep Apnea: No Thyroid Disease: No Ulcer: No Past Surgical History Narrative Surgical The patient's past surgical history is significant for cardiac catheterization with stent placement, inguinal hernia repair, cataract surgery, kidney stone removal, hernia repair. Abdominal Surgery: Yes (HIATAL HERNIA; LEFT AND RIGHT INGUINAL HERNIA) AICD: No Arteriovenous Shunt: No Body Medical Devices: WIRE MESH R/T HERNIA REPAIR/3 STENTS Cardiac Surgery: Yes (HX OF CAD WITH STENT PLACEMENT.) Coronary Artery Bypass Graft: No Coronary Stent: Yes ("3 STENTS,TWO STENTS IN 2005 AND ONE STENT IN 1999") Ear Surgery: No Endocrine Surgery: No Eye Surgery: Yes (TRINI CATARCTS REMOVED [id number]) Genitourinary Surgery: Yes ( RENAL CALCULI) Insulin Pump: No Joint Replacement: No Neurologic Surgery: No Pacemaker: No Other Surgery: Yes ("EARLY 70'S,RIGHT AND LEFT INGUINAL HERNIAS") Social History Alcohol Use: No Tobacco Use: No (quit 20 years ago) Substance Use: No Allergies-Medications (Allergen,Severity, Reaction): Coded Allergies: allopurinol (Verified Allergy, Unknown, 06/29/17) hydrochlorothiazide (Verified Allergy, Unknown, 06/29/17) penicillin G (Unverified Allergy, Unknown, 06/29/17) acetaminophen (Unverified Adverse Reaction, Intermediate, VOMITING, ) propoxyphene (Unverified Adverse Reaction, Intermediate, VOMITING, ) Uncoded Allergies: potassium citrate (Allergy, Unknown, 06/29/17) Reported Meds & Prescriptions Reported Meds & Active Scripts Active Aspirin Low Strength (Aspirin) 81 Mg Chew 81 Mg CHEW DAILY Januvia (Sitagliptin Phosphate) 50 Mg Tab 50 Mg PO DAILY Coreg (Carvedilol) 6.25 Mg Tab 6.25 Mg PO DAILY Aldactone (Spironolactone) 25 Mg Tab 25 Mg PO DAILY 30 Days Take 1 pill daily Start taking medication on 06/12/17 if kidney function is improved. Altace (Ramipril) 1.25 Mg Cap 1.25 Mg PO BID 30 Days Reported Metformin (Metformin HCl) 500 Mg Tab 500 Mg PO DAILY With a meal Omeprazole 20 Mg Tab 20 Mg PO DAILY Glimepiride 4 Mg Tab 4 Mg PO BIDAC Fenofibrate 145 Mg Tab 145 Mg PO DAILY Cardizem CD 24 HR (Diltiazem CD 24 HR) 180 Mg Caper 180 Mg PO DAILY Crestor (Rosuvastatin Calcium) 10 Mg Tab 10 Mg PO HS Victoza Inj (Liraglutide Inj) 18 Mg/3 Ml Pen 0.6 Mg SQ DAILY Eliquis (Apixaban) 2.5 Mg Tab 2.5 Mg PO DAILY Review of Systems ROS Limitations: Clinical Condition, Unresponsive Neurologic: Positive: Change in Mentation, No: Weakness Physical Exam Narrative General: The patient is a well-developed well-nourished male, in no acute distress, however the patient is noted on exam to be staring, looking intermittently around the room, attempting to speak when spoken to, however no words or spoken , occasionally a sound is made. Head and Neck exam: Head is normocephalic atraumatic. Eyes: The patient is uncooperative with extraocular motion testing. Pupils are 3 mm and reactive to light bilaterally. Nose: Midline septum with pink mucous membranes Mouth: The patient has dentures in place. Moist mucus membranes. Posterior oropharynx is not erythematous. No tonsillar hypertrophy. Uvula midline. Airway patent. Neck: No palpable lymphadenopathy. No nuchal rigidity. No thyromegaly. No spinous process tenderness on palpation noted. No step-off or crepitus. No erythema or ecchymosis. Cardiovascular: Irregularly irregular with a heart rate in the 120s, atrial fibrillation with RVR noted on the monitor without murmurs, gallops, or rubs. Lungs: Clear to auscultation bilaterally. No wheezes, rhonchi, or rales. Abdomen: Soft, without tenderness to palpation in all 4 quadrants of the abdomen. No guarding, rebound, or rigidity. Normal bowel sounds are audible. No tenderness on palpation of McBurney's point. Extremities: No clubbing, cyanosis, or edema. 2+ pulses in all 4 extremities. The patient is noted to have a skin tear along the posterior aspect of the right elbow. Back: No spinous process tenderness to palpation. No costovertebral angle tenderness to palpation. Neurologic Exam: The patient is staring with his eyes open. The patient occasionally looks around the room. The patient is otherwise uncooperative with formal neurologic testing. The patient spontaneously reportedly was moving his left hand. Otherwise, the patient has no movements of his extremities noted. The patient's GCS is 9. Skin Exam: Skin is warm and dry. Data Data Last Documented VS Vital Signs Date Time Temp Pulse Resp B/P (MAP) Pulse Ox O2 Delivery O2 Flow Rate FiO2 07/06/17 06:02 122 16 163/75 (104) 96 Nasal Cannula 07/06/17 06:02 2.00 Orders Orders I-Stat Profile (07/06/17 05:41) I-Stat Creatinine (07/06/17 05:41) Complete Blood Count With Diff (07/06/17 05:41) Prothrombin Time / Inr (Pt) (07/06/17 05:41) Act Partial Throm Time (Ptt) (07/06/17 05:41) Type And Screen (07/06/17 05:41) Fibrinogen (07/06/17 05:41) Alcohol (Ethanol) (07/06/17 05:41) Chest, Single Ap (07/06/17 05:41) Ct Brain W/O Iv Contrast(Rout) (07/06/17 05:41) Ct Cerv Spine W/O Contrast (07/06/17 05:41) Apply Cervical Collar (07/06/17 05:41) Iv Access Insert/Monitor (07/06/17 05:41) Ecg Monitoring (07/06/17 05:41) Oximetry (07/06/17 05:41) Oxygen Administration (07/06/17 05:41) Cefazolin 2 Gm Premix (Ancef 2 Gm Premix (07/06/17 05:45) Awqm-Fuj-Etnjem (Booster) Inj (Boostrix (07/06/17 05:45) Sodium Chloride 0.9% Flush (Ns Flush) (07/06/17 05:45) Drug Screen, Random Urine (07/06/17 05:41) Diet Npo (07/06/17 Breakfast) Activity Bed Rest (07/06/17 ) Electrocardiogram (07/06/17 ) Creatine Kinase (Cpk) (07/06/17 06:01) Troponin I (07/06/17 06:01) Cta Brain W Iv Contrast W 3d (07/06/17 06:01) Cta Neck W Iv Contrast W 3d (07/06/17 06:01) Consult Neurology (07/06/17 ) Neuro Checks Q2HX12,Q4H (07/06/17 06:01) Nursing Bedside Swallow Assess .ONCE (07/06/17 06:01) NPO (07/06/17 06:01) Sodium Chlor 0.9% 1000 Ml Inj (Ns 1000 M (07/06/17 06:01) Resp Oxygen Bk C Titrat 1-4 L (07/06/17 06:01) Cath For Specimen (07/06/17 06:01) Urinary Catheter Insert/Apply (07/06/17 06:01) (Hub Use Only)Inp Phy Cons/Ref (07/06/17 ) Sodium Chlor 0.9% 250 Ml Inj (Ns 250 Ml (07/06/17 06:45) Sodium Chlor 0.9% 1000 Ml Inj (Ns 1000 M (07/06/17 06:45) Iohexol 350 Inj (Omnipaque 350 Inj) (07/06/17 06:30) Metoprolol Tartrate Inj (Lopressor Inj) (07/06/17 07:00) Admit Order (Ed Use Only) (07/06/17 07:07) Labs Laboratory Tests Test 07/06/17 05:40 07/06/17 06:30 White Blood Count 12.2 TH/MM3 Red Blood Count 5.30 MIL/MM3 Hemoglobin 15.1 GM/DL Bedside Hemoglobin 16.3 G/DL Hematocrit 45.2 % Bedside Hematocrit 48.0 % Mean Corpuscular Volume 85.2 FL Mean Corpuscular Hemoglobin 28.5 PG Mean Corpuscular Hemoglobin Concent 33.4 % Red Cell Distribution Width 15.3 % Platelet Count 188 TH/MM3 Mean Platelet Volume 7.7 FL Neutrophils (%) (Auto) 71.2 % Lymphocytes (%) (Auto) 17.6 % Monocytes (%) (Auto) 7.8 % Eosinophils (%) (Auto) 3.0 % Basophils (%) (Auto) 0.4 % Neutrophils # (Auto) 8.7 TH/MM3 Lymphocytes # (Auto) 2.2 TH/MM3 Monocytes # (Auto) 1.0 TH/MM3 Eosinophils # (Auto) 0.4 TH/MM3 Basophils # (Auto) 0.0 TH/MM3 CBC Comment DIFF FINAL Differential Comment Prothrombin Time 12.0 SEC Prothromb Time International Ratio 1.1 RATIO Activated Partial Thromboplast Time 28.3 SEC Fibrinogen 414 mg/dL Bedside Sodium 140 MMOL/L Bedside Potassium 4.2 MMOL/L Bedside Chloride 106 MMOL/L Bedside Blood Urea Nitrogen 42 MG/DL Bedside Creatinine 1.8 MG/DL Bedside Glucose 203 MG/DL Total Creatine Kinase 24 U/L Troponin I 0.12 NG/ML Ethyl Alcohol Level LESS THAN 3 MG/DL Urine Opiates Screen NEG Urine Barbiturates Screen NEG Urine Amphetamines Screen NEG Urine Benzodiazepines Screen NEG Urine Cocaine Screen NEG Urine Cannabinoids Screen NEG MDM Medical Screen Exam Complete: Yes Emergency Medical Condition: Yes Medical Record Reviewed: Yes Interpretation(s) Last Impressions Neck CTA 07/06/17600 Signed Impressions: Service Date/Time: Thursday, July 06, 2017 06:10 - CONCLUSION: Scattered plaque at the origin the great vessels, the carotid bulb regions, and proximal internal carotid arteries bilaterally without a significant stenosis seen. Bud Cash MD Head CTA 07/06/17600 Signed Impressions: Service Date/Time: Thursday, July 06, 2017 06:10 - CONCLUSION: Focal stenosis at the proximal left posterior cerebral artery. The distal flow appears normal throughout. Bud Cash MD Head CT 07/06/17 0541 Signed Impressions: Service Date/Time: Thursday, July 06, 2017 05:36 - CONCLUSION: 1. No acute abnormality is seen. 2. Atrophy. 3. Suspected small vessel ischemic change throughout the white matter. 4. Old lacunar infarct of the right basal ganglia. 5. Mild area of encephalomalacia at the left occipital lobe. Bud Cash MD Chest X-Ray 07/06/17 0541 Signed Impressions: Service Date/Time: Thursday, July 06, 2017 06:03 - CONCLUSION: Enlargement of the cardiac silhouette. Bud Cash MD Cervical Spine CT 07/06/17 0541 Signed Impressions: Service Date/Time: Thursday, July 06, 2017 05:37 - CONCLUSION: 1. No acute bony injury is seen. 2. Degenerative change. Bud Cash MD Differential Diagnosis Intracranial hemorrhage, versus cervical spine injury, versus metabolic encephalopathy Narrative Course During the course of the patients emergency department visit, the patients history, examination, and differential diagnosis were reviewed with the patient. The patient was placed on a tester printed circuit boards with oximetry and frequent blood pressure monitoring. The patient had IV access obtained and blood work sent for analysis. The cervical collar was placed on the patient. A CT scan of the head and neck was ordered. Initially the patient was called as a level II trauma alert. I did speak to the surgeon regarding this patient's case on the CT scan of the brain showed no evidence of hemorrhage. The patient was cleared by the trauma surgeon. The patient was initially provided Ancef 2 g IV, an update to his tetanus, normal saline IV fluids were started. The patients laboratory studies were reviewed and remarkable for a white count of 12.2, hemoglobin 15.1, platelets 188 with neutrophils 71.2. I-STAT with creatinine reveals a BUN of 42, creatinine 1.8, glucose 203, PT 12, PTT 28.3, fibrinogen 414, urine drug screen is negative, alcohol less than 3. Radiology studies were reviewed and remarkable for a chest x-ray that shows an enlarged cardiac silhouette, no other acute abnormality. CT scan of the brain was read by the reading radiologist as showing no acute abnormality. Atrophy noted, old lacunar infarct, mild area of encephalomalacia in the left occipital lobe. A call was for cell to the neurologist regarding this patient's case. I spoke to Dr. Pressley. NIH score was initially 23. He was agreeable with the plan to proceed with CTA of the head and neck. The patient was not deemed a candidate for TPA as he is clinically anticoagulated on Eliquis and had an unknown time of onset of symptoms. On reevaluation after coming back from CT, the patient was noted to be making more eye contact moving his head from side to side, moving his feet spontaneously and was also noted to move his right hand in CT by the nurse. The patient is attempting to speak although words continue to be unintelligible. CT scan of the C-spine showed no acute bony injury. CTA of the neck shows scattered plaque at the origin of the great vessels, the carotid bulb regions, and proximal internal carotid arteries bilaterally without any significant stenosis. CTA of the brain shows focal stenosis of the proximal left posterior cerebral artery. The distal flow appears normal throughout. The patient is in A. fib with RVR, blood pressure 160 systolic. A call has been placed out to , the patient's drag down to discuss placement on a rate lowering medication. I spoke to , the covering drag down at 6:57 AM. He recommended a dose of Lopressor 5 mg IV. On reexamination, the patient continues to be controlling his secretions with O2 saturations of 99-100%. The patients results were discussed with the patient, including the plan of care. I explained that further testing and/ or monitoring is indicated based on the patients history, examination, and/ or laboratory findings. Therefore, I recommended admission for additional evaluation. The patient expressed understanding and was agreeable with this plan. The patient was admitted to the hospital in critical condition and sent to a bed under the care of the oil well logger service. Prior to leaving at the conclusion of my shift the drag down, arrived to examine the patient. I did discuss the patient's case with him in person and also examined the patient again with him. The patient on my arrival to the room was noted to be increasingly alert and was actually able to speak with some slurred speech. The patient was moving all extremities equally at that point. Critical Care Narrative Aggregate critical care time was 41 minutes. Time to perform other separately billable procedures was not included in the critical care time. My time did not include minutes spent treating any other patients simultaneously or on activities that did not directly contribute to the patient's treatment. The services I provided to this patient were to treat and/or prevent clinically significant deterioration that could result in: [-] I provided critical care services requiring my management, as noted below: Chart data review, documentation time, medication orders and management, vital sign assessments/reviewing monitor data, ordering and reviewing lab tests, ordering and interpreting/reviewing x-rays and diagnostic studies, care of the patient and discussion of the patient with the admitting physicians. Trauma Alert - Level Two Trauma Alert Level Two: Full trauma team activate, Patient evaluated, Trauma surgeon called Time Surgeon Called: 05:55 Physician Communication The patient's case including history, pertinent physical examination findings, and laboratory studies were discussed with Dr. Pressley. He will see the patient in consultation. He agrees that the patient is not a candidate at this time for TPA as the onset of stroke symptoms is unknown and the patient has a history of being on Eliquis. He was agreeable with the plan to proceed with CTA of the head and neck. The patient will be admitted to the intensive care unit for close monitoring. I spoke to the patient's daughter regarding her dad. She is the only child. The patient's is . She reports that she would be making decisions for him. She is currently in [place], however she will arrange to come down to [place] to assist with caring for the patient and decision making. She reports that the patient has not DNR. She is aware that if he has any further decline in his mentation he will require intubation. Her cell phone number for communication [phone]. The patient's case including history, pertinent physical examination findings, and laboratory studies were discussed with Dr. Palacios. It was agreed that the patient would be admitted to the oil well logger service. Diagnosis Diagnosis: Primary Impression: Ischemic stroke Admitting Physician Requests: Admit Michelle Moore MD Jul 06, 2017 05:49
[2017-07-06 06:01] LABS: I-STAT POTASSIUM 4.2 MMOL/L (3.5-4.9); I-STAT SODIUM 140 MMOL/L (138-146)
[2017-07-06] MEDS ORDERED: SODIUM CHLOR 0.9% 1000 ML INJ 1,000 ML IV ONE (06:01)
--- NOTE | 2017-07-06 06:01 | RADRPT ---
EXAM DATE/TIME: 07/06/2017 05:36 [facility] COMPARISON: No previous studies available for comparison. INDICATIONS : Trauma; fall. RADIATION DOSE: 56.35 CTDIvol (mGy) MEDICAL HISTORY : Non-responsive. SURGICAL HISTORY : Non-responsive. ENCOUNTER: Initial ACUITY: 1 day PAIN SCALE: Non-responsive LOCATION: cranial TECHNIQUE: Multiple contiguous axial images were obtained of the head. Using automated exposure control and adj ustment of the mA and/or kV according to patient size, radiation dose was kept as low as reasonably a chievable to obtain optimal diagnostic quality images. DICOM format image data is available electro nically for review and comparison. FINDINGS: CEREBRUM: The ventricles are normal for age. The cortical sulci are widened. There is an area of encephalomala rosemarie at the left occipital lobe. There is decreased density in the cerebral white matter. Old lacunar infarcts are seen at the right basal ganglia. No evidence of midline shift, mass lesion, hemorrhage o r acute infarction. No extra-axial fluid collections are seen. POSTERIOR FOSSA: The cerebellum and brainstem are intact. The 4th ventricle is midline. The cerebellopontine angle i s unremarkable. EXTRACRANIAL: The visualized portion of the orbits is intact. SKULL: The calvaria is intact. No evidence of skull fracture. CONCLUSION: 1. No acute abnormality is seen. 2. Atrophy. 3. Suspected small vessel ischemic change throughout the white matter. 4. Old lacunar infarct of the right basal ganglia. 5. Mild area of encephalomalacia at the left occipital lobe. uBd Cash MD on July 06, 2017 at 5:57 Board Certified Radiologist. This report was verified electronically.
[2017-07-06 06:05] LABS: AUTOMATED NEUTROPHIL # 8.7 TH/MM3 (1.8-7.7); BASOPHIL % 0.4 % (0.0-2.0); EOSINOPHIL # 0.4 TH/MM3 (0-0.4); HEMATOCRIT 45.2 % (39.0-51.0); HEMO FLAGS DIFF FINAL; LYMPH % 17.6 % (9.0-44.0); LYMPHOCYTE # 2.2 TH/MM3 (1.0-4.8); MEAN CELL VOLUME 85.2 FL (80.0-100.0); MEAN CORPUSCULAR HEMOGLOBIN 28.5 PG (27.0-34.0); MEAN CORPUSCULAR HGB CONC 33.4 % (32.0-36.0); MONO % 7.8 % (0.0-8.0); NEUT % 71.2 % (16.0-70.0); PLATELET COUNT 188 TH/MM3 (150-450); RED CELL DISTRIBUTION WIDTH 15.3 % (11.6-17.2); WHITE BLOOD COUNT 12.2 TH/MM3 (4.0-11.0)
--- NOTE | 2017-07-06 06:05 | RADRPT ---
EXAM DATE/TIME: 07/06/2017 05:37 [facility] COMPARISON: No previous studies available for comparison. INDICATIONS : Trauma; fall. RADIATION DOSE: 32.36 CTDIvol (mGy) MEDICAL HISTORY : Non-responsive. SURGICAL HISTORY : Non-responsive. ENCOUNTER: Initial ACUITY: 1 day PAIN SCALE: Non-responsive LOCATION: neck TECHNIQUE: Volumetric scanning of the cervical spine was performed. Multiplanar reconstructions in the sagittal, coronal and oblique axial planes were performed. Using automated exposure control and adjustment o f the mA and/or kV according to patient size, radiation dose was kept as low as reasonably achievable to obtain optimal diagnostic quality images. DICOM format image data is available electronically f or review and comparison. FINDINGS: VERTEBRAE: Normal vertebral body height. ALIGNMENT: No evidence of subluxation. C2-C3: The bony spinal canal is normal in size. No evidence of disc bulge or herniation. The neural forami na are bilaterally patent. There is fusion of the left facet joint. C3-C4: The bony spinal canal is normal in size. There is minimal disc bulge and osteophytic ridging. There is right facet hypertrophy. There is bilateral uncovertebral hypertrophy. There is some narrowing of the right neural foramina. The left neural foramina is patent. C4-C5: The bony spinal canal is normal in size. There is minimal disc bulge and osteophytic ridging. There is right facet hypertrophy. There is bilateral uncovertebral hypertrophy. There is some narrowing of the right neural foramina. The left neural foramina is patent. C5-C6: The bony spinal canal is normal in size. There is minimal disc bulge and osteophytic ridging. There is right facet hypertrophy. There is bilateral uncovertebral hypertrophy. The neural foramina are nevin aterally patent. C6-C7: The bony spinal canal is normal in size. There is minimal disc bulge and osteophytic ridging. There is right facet hypertrophy. There is bilateral uncovertebral hypertrophy. The neural foramina are nevin aterally patent. C7-T1: The bony spinal canal is normal in size. No evidence of disc bulge or herniation. The neural forami na are bilaterally patent. CONCLUSION: 1. No acute bony injury is seen. 2. Degenerative change. Bud Cash MD on July 06, 2017 at 5:59 Board Certified Radiologist. This report was verified electronically.
[2017-07-06 06:19] LABS: ALCOHOL LESS THAN 3 MG/DL (0-5)
[2017-07-06 06:20] LABS: APTT (PATIENT) 28.3 SEC (24.3-30.1); INTERNATIONAL NORMALIZED RATIO 1.1 RATIO
[2017-07-06] MEDS ORDERED: IOHEXOL 350 MG/ML 10 ML VIAL (for RAD DIAG) IVCONTRAST ONE (06:30)
--- NOTE | 2017-07-06 06:31 | RADRPT ---
EXAM DATE/TIME: 07/06/2017 06:03 [facility] COMPARISON: CHEST SINGLE AP, June 06, 2017, 15:01. INDICATIONS : Fall, syncope, short of breath. MEDICAL HISTORY : Diabetes mellitus type II. Hypertension. SURGICAL HISTORY : Coronary artery stent. Hiatal hernia surgery. ENCOUNTER: Initial ACUITY: 1 day PAIN SCORE: 0/10 LOCATION: Bilateral chest FINDINGS: The cardiac silhouette is enlarged. The lungs are grossly clear. A significant effusion is not seen. Clips are seen in the left upper quadrant. CONCLUSION: Enlargement of the cardiac silhouette. Bud Cash MD on July 06, 2017 at 6:29 Board Certified Radiologist. This report was verified electronically.
[2017-07-06] MEDS ORDERED: SODIUM CHLOR 0.9% 250 ML INJ 250 ML IV ONE (06:45)
[2017-07-06] MEDS ORDERED: SODIUM CHLOR 0.9% 1000 ML INJ 1,000 ML IV SCH (06:45)
[2017-07-06] MEDS ORDERED: METOPROLOL TARTRATE 5 MG/5 ML VIAL IV PUSH ONE (07:00)
--- NOTE | 2017-07-06 07:00 | RADRPT ---
EXAM DATE/TIME: 07/06/2017 06:10 [facility] COMPARISON: No previous studies available for comparison. INDICATIONS : Patient found unresponsive; possible stroke. IV CONTRAST: 75 cc Omnipaque 350 (iohexol) IV ; Cumulative dose for multiple exams. RADIATION DOSE: 15.55 CTDIvol (mGy) ; Combined studies MEDICAL HISTORY : Non-responsive. SURGICAL HISTORY : Non-responsive. ENCOUNTER: Initial ACUITY: 1 day PAIN SCALE: Non-responsive LOCATION: neck Elevated flow velocities and ICA/CCA ratios have been found to correlate with increased degrees of vessel stenosis, calculated as percentage of diameter relative to a normal segment of distal ICA/CCA. TECHNIQUE: Volumetric scanning was performed using a multirow detector CT scanner. The data was post processed with a variety of visualization algorithms including full-volume maximum intensity projection, multip lanar sliding thin-slab reformation, curved-planar reformation, and surface-rendering techniques. Us ing automated exposure control and adjustment of the mA and/or kV according to patient size, radiatio n dose was kept as low as reasonably achievable to obtain optimal diagnostic quality images. DICOM f ormat image data is available electronically for review and comparison. FINDINGS: AORTIC ARCH: There is a three-vessel origin of the great vessels from the aorta. No evidence of ostial narrowing. There is mild thickening of the arterial bates of the aorta and the origins of the great vessels wit hout significant stenosis. RIGHT CAROTID: The common carotid artery is intact. There is calcification at the carotid bulb region and at the pro ximal internal carotid artery. The external carotid artery is intact. LEFT CAROTID: The common carotid artery is intact. There is calcification of the carotid bulb region. There is stefanie cification and minimal soft plaque at the proximal left internal carotid artery. The external caroti d artery is intact. VERTEBRALS: The vertebral arteries have a symmetric diameter. No stenotic lesions are seen. CONCLUSION: Scattered plaque at the origin the great vessels, the carotid bulb regions, and proximal internal car otid arteries bilaterally without a significant stenosis seen. Bud Cash MD on July 06, 2017 at 6:56 Board Certified Radiologist. This report was verified electronically.
--- NOTE | 2017-07-06 07:04 | RADRPT ---
EXAM DATE/TIME: 07/06/2017 06:10 [facility] COMPARISON: CT BRAIN W/O CONTRAST, July 06, 2017, 5:36. INDICATIONS : Patient found on the ground; possible stroke. IV CONTRAST: 73 cc Omnipaque 350 (iohexol) IV ; Cumulative dose for multiple exams. RADIATION DOSE: 15.55 CTDIvol (mGy) ; Combined studies MEDICAL HISTORY : Non-responsive. SURGICAL HISTORY : Non-responsive. ENCOUNTER: Initial ACUITY: 1 day PAIN SCALE: Non-responsive LOCATION: cranial TECHNIQUE: Volumetric scanning was performed using a multi-row detector CT scanner. The data was post processed with a variety of visualization algorithms including full volume maximum intensity projection, multi -planar sliding thin slab reformation, curved planar reformation, and surface rendering techniques. Using automated exposure control and adjustment of the mA and/or kV according to patient size, radiat ion dose was kept as low as reasonably achievable to obtain optimal diagnostic quality images. DICO M format image data is available electronically for review and comparison. FINDINGS: There is excellent visualization of the major intracranial arteries out to the second-order branch ve ssels. There is no evidence for aneurysm or no evidence for vascular malformation. There is a focal area of decreased contrast seen in the proximal left posterior cerebral artery concerning for a focal area of stenosis. The distal flow appears normal. No stenosis is seen in the anterior circulation. T he distal flow appears preserved. CONCLUSION: Focal stenosis at the proximal left posterior cerebral artery. The distal flow appears normal through out. Bud Cash MD on July 06, 2017 at 6:59 Board Certified Radiologist. This report was verified electronically.
--- NOTE | 2017-07-06 07:30 | HHI.HP ---
[facility] Service Critical Care Medicine Primary Care Physician Unknown Admission Diagnosis Ischemic [place] Diagnosis: (1) Stroke Diagnosis: Principal (2) Atrial fibrillation with rapid ventricular response Diagnosis: Principal (3) Pulmonary hypertension Diagnosis: Secondary (4) History of CVA (cerebrovascular accident) Diagnosis: Secondary (5) Gastroesophageal reflux disease Diagnosis: Secondary (6) Dementia Diagnosis: Principal (7) Diabetes mellitus Diagnosis: Principal (8) History of gastric ulcer Diagnosis: Secondary (9) Coronary artery disease Diagnosis: Secondary (10) Leukocytosis Diagnosis: Principal (11) Chronic kidney disease, stage 3a Diagnosis: Secondary (12) Hyperlipidemia Diagnosis: Secondary (13) Hypertension Diagnosis: Principal (14) Arteriosclerotic heart disease (ASHD) Diagnosis: Secondary (15) Acute systolic CHF (congestive heart failure) Diagnosis: Secondary (16) Memory impairment Diagnosis: Secondary (17) Hematoma Diagnosis: Principal (18) Cardiomyopathy Diagnosis: Secondary (19) Memory changes Diagnosis: Principal Chief Complaint: Patient found at home for unknown duration time down GCS of 9 and a score 23 with hematoma. Travel History International Travel<30 Days: No Contact w/Intl Traveler <30 Da: No Traveled to Known Affected Are: No History of Present Illness This is a 76-year-old male. Date of admission 07/06/2017. Past medical history includes history of right basal ganglia CVA, dementia disorder NOS, atrial fibrillation, chronic systolic heart failure, hypertension, disc edema, gastroesophageal disease with a history of a gastric ulcer status post appendectomy and clipping 2011, diabetes mellitus poorly controlled. Patient presented to [facility] initially as a level II trauma after being found at home and down for unknown duration of time. Neighbor's had not recently seen the patient and were concerned and called EMS. Patient had a large hematomas and was placed in a c-collar. Incomprehensible groaning sounds. Patient had generalized weakness according to records. NIH score is 23. GCS was 9 now around 11 [id number] as he is currently talking, comprehensibly and spontaneously moving his left upper extremity and left lower extremity CT brain revealed old right basal ganglia CVA in the left occipital encephalomalacia. Patient was in A. fib with RVR with heart rate in the 120s. BMP revealed currently 1.8. Leukocytosis 12.2. Patient received 2 g of cefazolin and DTP 0.5 mcg IM 1 Cardiology/ seen the patient. Patient recommended Lopressor 5 mm IV 1 for rate control. Currently on a diltiazem drip to maintain heart rate less than 100. Patient's source of stroke likely embolic. Echocardiogram has been ordered. Last EF 20% with moderate MR/TR and pulmonary pressure 54 mmHg. 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 CT brain revealed old right basal CVA and cephalization the left occipital lobe. Not a candidate for alteplase secondary to unknown duration of time and apixaban use. CTA head and neck revealed left MINK SLICER stenosis. Generalized plaque in the carotid/carotid bulb the vertebral artery regions otherwise not flow-limiting. He will seeing consultation. MRI of the brain pending. Review of Systems Constitutional: DENIES: Fatigue, Fever, Weight gain Endocrine: DENIES: Polydipsia, Polyuria Eyes: DENIES: Blurred vision Ears, nose, mouth, throat: DENIES: Tinnitus Respiratory: DENIES: Apneas, Shortness of breath Cardiovascular: DENIES: Chest pain Gastrointestinal: DENIES: Abdominal pain Genitourinary: DENIES: Urgency Musculoskeletal: DENIES: Joint pain Integumentary: DENIES: Rash Hematologic/lymphatic: COMPLAINS OF: Bruising Immunologic/allergic: DENIES: Eczema Neurologic: COMPLAINS OF: Localized weakness, Speech Problems, DENIES: Headache , Tremor Psychiatric: COMPLAINS OF: Anxiety, Confusion Past Family Social History Allergies: Coded Allergies: allopurinol (Verified Allergy, Unknown, 06/29/17) hydrochlorothiazide (Verified Allergy, Unknown, 06/29/17) penicillin G (Unverified Allergy, Unknown, 06/29/17) acetaminophen (Unverified Adverse Reaction, Intermediate, VOMITING, ) propoxyphene (Unverified Adverse Reaction, Intermediate, VOMITING, ) Uncoded Allergies: potassium citrate (Allergy, Unknown, 06/29/17) Past Medical History History of right basal ganglia CVA History of TIA Hypertension Dyslipidemia Atrial fibrillation non-valvular Congestive heart failure ejection fraction 20% - chronic systolic Gastroesophageal reflux disease History of gastric ulcer status post appendectomy clipping 2011 Diabetes mellitus Dementia disorder NOS Past Surgical History History bilateral inguinal hernia repair with mesh History of coronary artery disease status post stenting 3 Bilateral cataract with intraocular lens Status post renal lithotripsy Reported Medications Aspirin Low Strength (Aspirin) 81 Mg Chew 81 Mg CHEW DAILY Januvia (Sitagliptin Phosphate) 50 Mg Tab 50 Mg PO DAILY Coreg (Carvedilol) 6.25 Mg Tab 6.25 Mg PO DAILY Aldactone (Spironolactone) 25 Mg Tab 25 Mg PO DAILY 30 Days Take 1 pill daily Start taking medication on 06/12/17 if kidney function is improved. Altace (Ramipril) 1.25 Mg Cap 1.25 Mg PO BID 30 Days Reported Metformin (Metformin HCl) 500 Mg Tab 500 Mg PO DAILY With a meal Omeprazole 20 Mg Tab 20 Mg PO DAILY Glimepiride 4 Mg Tab 4 Mg PO BIDAC Fenofibrate 145 Mg Tab 145 Mg PO DAILY Cardizem CD 24 HR (Diltiazem CD 24 HR) 180 Mg Caper 180 Mg PO DAILY Crestor (Rosuvastatin Calcium) 10 Mg Tab 10 Mg PO HS Victoza Inj (Liraglutide Inj) 18 Mg/3 Ml Pen 0.6 Mg SQ DAILY Eliquis (Apixaban) 2.5 Mg Tab 2.5 Mg PO DAILY Family History Patient is adopted Social History Quit tobacco 30 years ago. Unknown pack years. Not documented. No documentation of alcohol or illicit drug use Physical Exam Vital Signs Vital Signs Date Time Temp Pulse Resp B/P (MAP) Pulse Ox O2 Delivery O2 Flow Rate FiO2 07/06/17 06:02 122 16 163/75 (104) 96 Nasal Cannula 07/06/17 06:02 96 Nasal Cannula 2.00 07/06/17 05:34 100 Nasal Cannula 3.00 07/06/17 05:34 100 3.00 Physical Exam GENERAL: 76-year-old male, resting in bed in no acute distress on nasal cannula SKIN: Warm and dry. Hematoma without current active bleeding HEAD: Normocephalic. EYES: Pupils equal and round around 3 mm bilaterally and reactive. No scleral icterus. No injection or drainage. ENT: No nasal bleeding or discharge. Mucous membranes pink and moist. NECK: Trachea midline. No JVD. CARDIOVASCULAR: Tachycardia, IR. S1, S2. No S4. 1/6 systolic murmur RESPIRATORY: Clear to auscultation. Breath sounds equal bilaterally. GASTROINTESTINAL: Abdomen soft, non-tender, nondistended. Hypoactive bowel sounds are appreciated MUSCULOSKELETAL: Extremities without edema. No obvious deformities. NEUROLOGICAL: Awake and alert. Right facial droop. Strength 5 left upper extremity. 2 out of 5 left lower extremity. 1 out of 5 right upper and lower extremity. Decreased sensation to light touch and pinprick bilaterally. DTRs 1 + bilateral upper and lower extremities including brachial, patellar and Achilles. Unable to assess pronator. Gait was not assessed. Laboratory Laboratory Tests Test 07/06/17 05:40 07/06/17 06:30 White Blood Count 12.2 Red Blood Count 5.30 Hemoglobin 15.1 Bedside Hemoglobin 16.3 Hematocrit 45.2 Bedside Hematocrit 48.0 Mean Corpuscular Volume 85.2 Mean Corpuscular Hemoglobin 28.5 Mean Corpuscular Hemoglobin Concent 33.4 Red Cell Distribution Width 15.3 Platelet Count 188 Mean Platelet Volume 7.7 Neutrophils (%) (Auto) 71.2 Lymphocytes (%) (Auto) 17.6 Monocytes (%) (Auto) 7.8 Eosinophils (%) (Auto) 3.0 Basophils (%) (Auto) 0.4 Neutrophils # (Auto) 8.7 Lymphocytes # (Auto) 2.2 Monocytes # (Auto) 1.0 Eosinophils # (Auto) 0.4 Basophils # (Auto) 0.0 CBC Comment DIFF FINAL Differential Comment Prothrombin Time 12.0 Prothromb Time International Ratio 1.1 Activated Partial Thromboplast Time 28.3 Fibrinogen 414 Bedside Sodium 140 Bedside Potassium 4.2 Bedside Chloride 106 Bedside Blood Urea Nitrogen 42 Bedside Creatinine 1.8 Bedside Glucose 203 Ethyl Alcohol Level LESS THAN 3 Urine Opiates Screen NEG Urine Barbiturates Screen NEG Urine Amphetamines Screen NEG Urine Benzodiazepines Screen NEG Urine Cocaine Screen NEG Urine Cannabinoids Screen NEG Result Diagram: 07/06/[address] brain - old left occipital lobe encephalomalacia. Old right basal ganglia CVA CTA brain - focal left MINK SLICER stenosis. CTA neck - generalized plaque. No focal flow-limiting stenosis Caprini VTE Risk Assessment Caprini VTE Risk Assessment: Mod/High Risk (score >= 2) Caprini Risk Assessment Model Point Value = 1 Point Value = 2 Point Value = 3 Point Value = 5 Age 41-60 Minor surgery BMI > 25 kg/m2 Swollen legs Varicose veins or History of unexplained or recurrent spontaneous Oral contraceptives or hormone replacement Sepsis (< 1 month) Serious lung disease, including pneumonia (< 1 month) Abnormal pulmonary function Acute myocardial infarction Congestive heart failure (< 1 month) History of inflammatory bowel disease Medical patient at bed rest Age 61-74 Arthroscopic surgery Major open surgery (> 45 min) Laparoscopic surgery (> 45 min) Malignancy Confined to bed (> 72 hours) Immobilizing plaster cast Central venous access Age >= 75 History of VTE Family history of VTE Factor V Leiden Prothrombin [id number] Lupus anticoagulant Anticardiolipin antibodies Elevated serum homocysteine Heparin-induced thrombocytopenia Other congenital or acquired thrombophilia Stroke (< 1 month) Elective arthroplasty Hip, pelvis, or leg fracture Acute spinal cord injury (< 1 month) Prophylaxis Regimen Total Risk Factor Score Risk Level Prophylaxis Regimen 0-1 Low Early ambulation 2 Moderate Order ONE of the following: *Sequential Compression Device (SCD) *Heparin 5000 units SQ BID 3-4 Higher Order ONE of the following medications: *Heparin 5000 units SQ TID *Enoxaparin/Lovenox 40 mg SQ daily (WT < 150 kg, CrCl > 30 mL/min) *Enoxaparin/Lovenox 30 mg SQ daily (WT < 150 kg, CrCl > 10-29 mL/min) *Enoxaparin/Lovenox 30 mg SQ BID (WT < 150 kg, CrCl > 30 mL/min) AND/OR *Sequential Compression Device (SCD) 5 or more Highest Order ONE of the following medications: *Heparin 5000 units SQ TID (Preferred with Epidurals) *Enoxaparin/Lovenox 40 mg SQ daily (WT < 150 kg, CrCl > 30 mL/min) *Enoxaparin/Lovenox 30 mg SQ daily (WT < 150 kg, CrCl > 10-29 mL/min) *Enoxaparin/Lovenox 30 mg SQ BID (WT < 150 kg, CrCl > 30 mL/min) AND *Sequential Compression Device (SCD) Assessment and Plan Assessment and Plan Neuro/Psych: CVA History of right basal ganglia CVA Dementia disorder NOS CT brain 07/06 revealed old right basal ganglia CVA. Encephalization left occipital lobe CTA brain - focal left MINK SLICER stenosis. CTA neck - generalized plaquing with no flow-limiting stenosis noted Dr. Pressley - neurology - not a candidate for alteplase secondary to unknown duration of time down and currently on Apixaban Continue aspirin will give 3 mg by mouth daily unable to take by mouth Generalized blood pressure control to 220/120 Head of bed at 0 MRI brain ordered 2-D echocardiogram ordered PT/OT/ST evaluate and treat CV: Atrial fibrillation with rapid ventricular response Chronic systolic heart failure ejection fraction 20% Coronary artery disease status post stent [address] Ohara - cardiology following. Currently on diltiazem drip for rate control 2-D echocardiogram 05/26 - EF 20%. LV dilatation. Moderate MR/TR. PAP 54 mmHg Home medications include carvedilol 6.25 mg twice a day, ramipril 1.25 mg twice a day and Aldactone 25 mg daily -Patient is on rosuvastatin 20 mg by mouth daily for dyslipidemia. Along with fenofibrate 145 mg daily EKG revealed A. fib with RVR. No ischemic changes. Per cardiology patient's heart is usually elevated Lipid panel/2-D echocardiogram per CVA protocol ordered Resp: Prior tobaccoism Nasal cannula to maintain saturations greater than equal to 92% Incentive spirometry while awake Follow-up on chest x-ray Strict aspiration precautions GI: Gastroesophageal reflux disease History of upper GI bleed - gastric ulcer status post clipping 2011 Patient is currently nothing by mouth Pantoprazole for GI prophylaxis. Patient is on omeprazole 20 mg by mouth daily for gastroesophageal reflux disease Docusate sodium/senna 1 tablet twice a day for bowel regimen : Ackerman catheter if indicated for accurate I's and O's in a critically ill patient Endo: Diabetes mellitus Euglycemia Home medications include metformin 500 mg daily, glimepiride 4 mg twice a day and linagliptin 18 mg/3 milliliters 0.6 mg subcutaneous daily Currently on sliding scale with Accu-Cheks every 6 hours to maintain euglycemia/ low regimen Novulin R Check TSH Renal: Chronic kidney disease stage IIIa Creatinine around baseline currently 1.8 Monitor urine output Accurate I's and O's Avoid nephrotoxic medication Heme: Chronic Apixaban use Monitor CBC daily. Follow trends. Coags within normal limits Does not meet transfusion thresholds at this time ID: Monitor for infection Status post tetanus injection of 15 mg IM 1 and cefazolin 2 g IV 1 for hematoma MSK: PT/OT evaluate and treat FEN: Replace electrolytes as clinically indicated Access - Utilize peripheral IV. Central line if indicated Prophylaxis - GI - pantoprazole - DVT - SCDs/ST pharmacological prophylaxis once assess swallow evaluation. Apixaban versus heparin drip Level III admission Patient is currently quite agitated. Patient needs vasopressors to keep systolic blood pressure greater than 180 due to acute CVA per neurology. Really receiving peripheral phenylephrine drip. Risk of placing central line with risk of bleeding/pneumothorax in this not intubated patient would place this patient at unnecessary risk. Will order PICC line.. Patient noted to have a creatinine of 1.8 which is close to his baseline. Code Status Full code Discussed Condition With ED physician Discussed with Nadya Browning/daughter [phone].. Patient is a Care Plan discussed and all questions answered. 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
[2017-07-06] MEDS ORDERED: DILTIAZEM HCL 25 MG/5 ML VIAL IV PUSH ONE (08:00)
[2017-07-06] MEDS ORDERED: DILTIAZEM INJ 125 MG in SODIUM CHLORIDE 0.9% INJ 100 ML IV PRN (08:00)
[2017-07-06] MEDS ORDERED: DILTIAZEM HCL 25 MG/5 ML VIAL IV PUSH PRN (08:15)
--- NOTE | 2017-07-06 08:24 | EKG ---
Date Performed: 07/06/2017 Time Performed: 06:05:44 PTAGE: 76 years EKG: ATRIAL FIBRILLATION WITH RAPID VENTRICULAR RESPONSE NONSPECIFIC ST & T-WAVE ABNORMALITY ABN ORMAL ECG PREVIOUS TRACING : 06/07/2017 05.59 Compared to previous tracing, lateral T wave changes have i mproved. DOCTOR: Oswaldo Rocha Interpretating Date/Time 07/06/2017 08:23:14
[2017-07-06] MEDS ORDERED: MISCELLANEOUS NURSING INFORMATION XX SCH (08:45)
[2017-07-06] MEDS ORDERED: LABETALOL HCL 100 MG/20 ML VIAL IV PUSH PRN (08:45)
[2017-07-06] MEDS ORDERED: ONDANSETRON HCL 4 MG/2 ML VIAL IV PUSH PRN (08:45)
[2017-07-06] MEDS ORDERED: MAGNESIUM HYDROXIDE SUSP 30 ML CUP PO PRN (08:45)
[2017-07-06] MEDS ORDERED: GLUCAGON 1 MG/ML VIAL OTHER PRN (08:45)
[2017-07-06] MEDS ORDERED: DEXTROSE 50% IN WATER 50 ML VIAL(D50) IV PUSH PRN (08:45)
[2017-07-06] MEDS ORDERED: SENNOSIDES 8.6 MG TAB PO PRN (08:45)
[2017-07-06] MEDS ORDERED: SODIUM CHLORIDE 0.9% FLUSH 5 ML FLUSH IV FLUSH PRN (08:45)
[2017-07-06] MEDS ORDERED: BISACODYL 10 MG SUPP RECTAL PRN (08:45)
[2017-07-06] MEDS ORDERED: RESP: ALBUTEROL 2.5 MG/3 ML NEB (PRN) INH (08:45)
[2017-07-06] MEDS ORDERED: ACETAMINOPHEN 325 MG TAB PO PRN (08:45)
[2017-07-06] MEDS ORDERED: CHLORHEXIDINE GLUCONATE 2 % 1 PACK (2 CLOTHS) TOP PRN (08:45)
[2017-07-06] MEDS ORDERED: LACTULOSE SYRUP 20 GM/30 ML CUP PO PRN (08:45)
--- NOTE | 2017-07-06 08:59 | MB ---
cc: STEPHANIE MILLER M.D., JAVIER M.D. DATE OF CONSULTATION 07/06/2017 REASON FOR CONSULTATION Atrial fibrillation status post ischemic stroke. HISTORY Mr. Quiroz is a 76-year-old white male well-known to me with a history of coronary artery disease, cardiomyopathy with severe left ventricular dysfunction, chronic systolic congestive heart failure, who was admitted to the hospital early this morning because of weakness and difficulty speaking. The patient says he woke up this morning and had trouble getting out of bed. At that point, he was able to phone his neighbor and asked for his help. Subsequently, he became aphasic. On arrival here in the emergency room, he was unable to communicate according to the emergency room physician. He has slightly improved since then and still has an expressive aphasia, but is able to communicate and follow commands quite well at this time. He does tell me that over the past couple of days he has been nauseous and vomiting and has not been able to keep all his medications down. I have also had concerns about his memory in that he may have been forgetting some medications. He is currently lying in bed and in no distress. His vital signs are stable, although his heart rate is fast. He denies any chest pains or shortness of breath. PAST MEDICAL HISTORY Significant for: 1. Coronary artery disease 2. Permanent atrial fibrillation 3. Hyperlipidemia 4. Cardiomyopathy, suspect this is a nonischemic and possibly tachycardia induced. 5. Previous episodes of GI bleeding requiring discontinuation of anticoagulation therapy. 6. GERD 7. Multiple myocardial infarctions in the past. 8. Chronic kidney disease 9. Possible previous CVAs or TIAs. PAST SURGICAL HISTORY 1. Multiple cardiac catheterizations, the most recent one was on June 29, 2017. That did reveal a left ventricular ejection fraction of 30% which was global in etiology. There was moderate coronary disease with a most significant area of 80-85% stenosis in the lateral circumflex artery and a 60-70% stenosis of the posterior descending branch of the right coronary artery. He was recommended continued conservative medical management at that time. He has not been experiencing any angina. His ESTELLE inhibitor therapy was being maximized. 2. Cataracts 3. Kidney stones removed 4. Inguinal hernia surgery 5. ASHD with remote drug-eluting stent implant LAD and bare metal stent implant ramus intermedius arteries 2004. ALLERGIES PENICILLIN G, ACETAMINOPHEN, PROPOXYPHENE. MEDICATIONS At home: 1. Carvedilol 6.25 mg p.o. b.i.d. 2. Cardizem CD 180 mg daily 3. Ramipril 2.5 mg b.i.d. 4. Spironolactone 25 mg daily 5. Eliquis 2.5 mg p.o. b.i.d. He was kept on this lower dose due to his previous GI bleeding problems. 6. Tricor 145 mg daily 7. Crestor 20 mg daily 8. Nitroglycerin sublingual p.r.n. 9. Omeprazole 20 mg daily 10. Glimepiride 4 mg daily 11. Metformin 500 mg daily 12. Januvia 50 mg b.i.d. 13. Victoza subcutaneous injection daily FAMILY HISTORY Noncontributory SOCIAL HISTORY The patient lives alone and is . Denies tobacco, alcohol or illicit drug use at this time. REVIEW OF SYSTEMS Except for that mentioned in the HPI, his complete 12-point review of systems is otherwise negative. PHYSICAL EXAM This is an elderly white male lying in bed in no distress with an expressive aphasia. He is moving all his extremities. VITAL SIGNS: Blood pressure 163/75 mmHg, heart rate is 122 and irregular, respiratory rate 16. He is afebrile. Oxygen saturation is 100% on three liters nasal cannula. HEAD: Normocephalic and atraumatic. EYES: Pupils equal and react to light. Sclerae anicteric. Extraocular movements intact. NECK: Supple. There is no adenopathy. No jugular venous tension at 30 degrees. Carotid upstrokes normal. No bruits. Thyroid exam is normal. LUNGS: Clear. HEART: PMI is laterally displaced. S1-S2 are irregular and rapid no murmurs, gallops or rubs. ABDOMEN: Benign. EXTREMITIES: No cyanosis, clubbing or edema. NEUROLOGIC: Exam is deferred to neurology service. EKG on arrival here at 06:05 a.m. shows an atrial fibrillation with rapid ventricular response of 119 beats per minute. Abnormal EKG. IMAGING STUDIES Head CT shows no hemorrhage. No acute abnormality, atrophy, old lacunar infarct in the right basilar ganglia, mild area of encephalomalacia in the left occipital lobe. Chest x-ray shows enlarged cardiac silhouette. Clear lungs. LABORATORY DATA CBC white count 12.2, hemoglobin 15.1, platelet count 188,000. Chemistries normal. Coags are normal. Fibrinogen 414. Toxicology is negative. IMPRESSION 1. Acute ischemic stroke. Likely embolic. 2. Permanent atrial fibrillation currently with rapid ventricular response. 3. Long-term anticoagulation therapy with Eliquis. 4. ASHD with remote drug-eluting stent implant LAD and bare metal stent implant ramus intermedius arteries 2004. 5. Hypertensive heart disease. 6. History of CVA/TIA. 7. History of recurrent GI bleeding while on warfarin and aspirin. 8. CKD RECOMMENDATIONS The patient will be started on intravenous Cardizem for rate control at this time until it is deemed safe to resume his oral medications. He is being admitted to the intensive care unit and will be followed by the slitter and cutter operator there. Neurology consultation is pending. His blood pressure will be left on the generous side for now. I have discussed plans with the emergency room doctor and Dr. Taylor, the slitter and cutter operator. Once he is cleared to resume his oral medications, they can all be restarted. I suspect that he had missed some doses of his medications at home which would explain his uncontrolled ventricular response as well as his current stroke event. I will plan to place him back on Eliquis probably without aspirin at a dose of 5 mg b.i.d. for now. The emergency room has spoken to the patient's daughter who lives at [facility], but is apparently on her way here in the next day or two. I will follow him with you with further recommendations as needed. Thank you for allowing us to participate in the care of this patient. MD KAREEN Ramirez/ERICKA /8:29 AM /8:46 AM
[2017-07-06] MEDS: ARTIFICIAL TEARS OPTH SOLN 15 ML BTL EACH EYE SCH ×3 (09:00→18:07)
[2017-07-06] MEDS: SODIUM CHLORIDE 0.9% FLUSH 5 ML FLUSH IV FLUSH SCH ×2 (09:00→21:00)
[2017-07-06] MEDS: DOCUSATE SODIUM 50 MG/SENNA 8.6 MG TAB PO SCH ×2 (10:00→20:52)
[2017-07-06] MEDS ORDERED: PHENYLEPHRINE INJ 160 MG in DEXTROSE 5% IN WATE 500 ML INJ 484 ML IV PRN ×2 (10:15)
[2017-07-06] MEDS ORDERED: TERBUTALINE INJ 1 MG/ML AMP SQ PRN ×2 (10:15→17:45)
[2017-07-06] MEDS ORDERED: PHENYLEPHRINE HCL 10 MG/ML VIAL ONE (10:20)
[2017-07-06] MEDS: INSULIN NovoLIN REGULAR SUPPLEMENTAL SCALE SQ SCH ×2 (12:00→18:06)
[2017-07-06] MEDS ORDERED: SODIUM CHLORIDE 0.9% FLUSH 10 ML FLUSH IV FLUSH PRN (12:15)
[2017-07-06] MEDS ORDERED: ADULT - PICC FLUSH PRN FOR HEPARIN ALLERGY OR HIT DIAGNOSIS IV FLUSH (12:15)
[2017-07-06] MEDS ORDERED: [UNRECOGNIZED DRUG - REMARK] IV FLUSH (12:15)
[2017-07-06] MEDS: PANTOPRAZOLE SODIUM 40 MG VIAL IV PUSH SCH (12:17)
[2017-07-06] MEDS: ASPIRIN 300 MG SUPP RECTAL SCH (12:17)
--- NOTE | 2017-07-06 12:44 | RADRPT ---
EXAM DATE/TIME: 07/06/2017 12:04 [facility] COMPARISON: CHEST SINGLE AP, July 06, 2017, 6:03. INDICATIONS : Left sided Picc Line Placement MEDICAL HISTORY : Nonresponsive SURGICAL HISTORY : Nonresponsive ENCOUNTER: Subsequent ACUITY: 1 day PAIN SCORE: Non-responsive. LOCATION: Bilateral chest FINDINGS: PICC line right atrium. Cardiomegaly with mild interstitial edema. Negative for pneumothorax. CONCLUSION: PICC line right atrium. Maik Yu MD FACR on July 06, 2017 at 12:41 Board Certified Radiologist. This report was verified electronically.
[2017-07-06 14:32] LABS: HEMATOCRIT 42.3 % (39.0-51.0); MEAN CELL VOLUME 86.1 FL (80.0-100.0); MEAN CORPUSCULAR HGB CONC 33.7 % (32.0-36.0); PLATELET COUNT 185 TH/MM3 (150-450); RED BLOOD COUNT 4.91 MIL/MM3 (4.50-5.90); RED CELL DISTRIBUTION WIDTH 15.6 % (11.6-17.2); REVIEW FLAG FINAL; WHITE BLOOD COUNT 12.4 TH/MM3 (4.0-11.0)
[2017-07-06 14:42] LABS: APTT (PATIENT) 30.8 SEC (24.3-30.1); INTERNATIONAL NORMALIZED RATIO 1.2 RATIO; PROTHROMBIN TIME - PATIENT 12.8 SEC (9.8-11.6)
--- NOTE | 2017-07-06 14:42 | RADRPT ---
EXAM DATE/TIME: 07/06/2017 12:47 [facility] COMPARISON: No previous studies available for comparison. INDICATIONS : Right sided weakness. MEDICAL HISTORY : Hypertension. Stroke Renal calculi. SURGICAL HISTORY : Inguinal hernia repair. Fusion, lumbar. Hiatal hernia. ENCOUNTER: Initial ACUITY: 2 day PAIN SCORE: 0/10 LOCATION: head TECHNIQUE: Multiplanar, multisequence MRI of the brain was performed without contrast. FINDINGS: There is restricted diffusion in portions of the mid convexity left posterior frontal region and of t he posterior insular cortex consistent with subacute stroke. There is patchy moderate T2 prolongation in the periventricular white matter is likely chronic microvascular ischemic in etiology. There is n o evidence of intracranial hemorrhage or mass. The extracranial structures are benign and intact. CONCLUSION: Subacute left partial MCA territory stroke. Bud Joseph MD on July 06, 2017 at 14:38 Board Certified Radiologist. This report was verified electronically.
[2017-07-06] MEDS ORDERED: NOREPINEPHRINE INJ 4 MG in SODIUM CHLOR 0.9% 250 ML INJ 246 ML IV PRN (17:45)
[2017-07-06] MEDS ORDERED: FUROSEMIDE 20 MG/2 ML VIAL IV PUSH ONE (17:45)
[2017-07-06] MEDS ORDERED: HEPARIN-D5W 25,000 U/250 ML 250 ML IV PRN (18:00)
[2017-07-06] MEDS ORDERED: PHENYLEPHRINE IV PRN (18:00)
[2017-07-06] MEDS ORDERED: SODIUM CHLORIDE 0.9% IV PRN (18:00)
[2017-07-06] MEDS ORDERED: IRR IV PRN (18:00)
[2017-07-06] MEDS: PHENYLEPHRINE INJ 160 MG in SODIUM CHLORID 0.9% 500 ML INJ 484 ML IV PRN (18:34)
[2017-07-06] MEDS: HEPARIN INJ 25,000 UNITS in SODIUM CHLOR 0.9% 250 ML INJ 247.5 ML IV PRN (18:36)
[2017-07-06 19:20] LABS: APTT (PATIENT) 28.9 SEC (24.3-30.1)
[2017-07-06] MEDS: PRAVASTATIN SOD 40 MG TAB PO SCH (20:52)
[2017-07-06] MEDS: SODIUM CHLORIDE 0.9% FLUSH 10 ML FLUSH IV FLUSH SCH (21:26)
--- NOTE | 2017-07-06 21:47 | MB ---
cc: RYAN BRANDON MD DATE OF CONSULTATION 07/06/2017 REASON FOR CONSULTATION Stroke. HISTORY OF PRESENT ILLNESS Mr. Quiroz is a 76-year-old male who is seen at the intensive care unit being aphasic, thus history is obtained from registered nurse and medical records.The patient presented to [facility] as a level II trauma after being found down at home for an unknown duration of time. Neighbors concerned and called EMS. NIH stroke scale was 23. The patient is not deemed as a IV TPA because of unknown last time he was seen normal and he is currently on Eliquis. In the emergency room a head CT scan revealed remote right basal ganglia stroke in the left occipital with left occipital encephalomalacia. Was found to be in a fib with RVR and a heart rate in the 120s. CTA head and neck revealed left PUTTY TINTER [employer]KER stenosis. PAST MEDICAL HISTORY 1. History of stroke. 2. Dementia. 3. Atrial fibrillation. 4. Cardiomyopathy. 5. Heart failure. 6. Hypertension. 7. Gastroesophageal reflux disease. 8. Diabetes. REVIEW OF SYSTEMS Unable to obtain but review of medical records reveal a 12-point review of systems is negative except for what is stated in the history of present illness. PAST MEDICAL HISTORY 1. Right basal ganglia stroke. 2. Transient ischemic attack. 3. Hypertension. 4. Hyperlipidemia. 5. Dementia. 6. Atrial fibrillation. 7. Congestive heart failure, last ejection fraction 20%. 8. Gastroesophageal reflux disease. 9. Diabetes. PAST SURGICAL HISTORY 1. Bilateral inguinal hernia repair with mesh. 2. Coronary artery disease status post stenting times three. 3. Bilateral cataracts. 4. Status post renal lithotripsy. ALLERGIES POTASSIUM CITRATE, ALLOPURINOL, HYDROCHLOROTHIAZIDE, PENICILLIN-G, ACETAMINOPHEN AND PROPOXYPHENE. MEDICATIONS 1. Aspirin. 2. Januvia. 3. Coreg. 4. Aldactone. 5. Altace. 6. Omeprazole. 7. Glimepiride. 8. Eliquis 2.5 mg daily. 9. Crestor. 10. Victoza. FAMILY HISTORY Review of medical records revealed that the patient is adopted. SOCIAL HISTORY Review of medical records reveal that he quit tobacco 30 years ago. No documentation of alcohol or illicit drug abuse. PHYSICAL EXAMINATION GENERAL: Awake, nonverbal, tracking object, moving the left side non purposefully, not in acute distress. HEENT: Atraumatic, normocephalic. No jaundice. NECK: Trachea in the midline. No signs of meningeal irritation. CARDIOVASCULAR: Irregularly irregular heart rate. Systolic murmur. LUNGS: Clear to auscultation. No wheezes. GASTROINTESTINAL: Soft abdomen, nontender. MUSCULOSKELETAL: No edema, cyanosis or deformities. NEUROLOGIC: Awake, alert. Global aphasia. No gaze deviation. Pupils 3 mm bilaterally, equally reacting to light. Subtle right facial weakness. Dense hemiplegia right upper and lower extremity. Move left upper and lower extremities. Unable to assess cerebellar and sensory function due to the aphasia. LABORATORY DATA White blood cells 12.2, hemoglobin 15, platelet count 188. INR 1.1. Sodium 140, potassium 4.2, creatinine 1.8, glucose 2.3. UDS is negative. IMAGING STUDIES -Head CT scan without contrast revealed no acute abnormality. Old lacunar infarct of the right basal ganglia, mild areas of encephalomalacia left occipital lobe. - CTA head with contrast revealed focal stenosis at the proximal left PUT[employer]ER. - Neck CTA with contrast revealed scattered plaque involving the great vessels without significant stenosis in the proximal ICA. - Brain MRI without contrast revealed subacute left partial MCA territory stroke. IMPRESSION 1. Acute / subacute ischemic stroke. 2. History of remote right basal ganglia stroke and left occipital lobe encephalomalacia. 3. History of dementia. 4. The patient was not a candidate for IV TPA due to unknown last time seen normal and currently on apixaban. 5. Atrial fibrillation with RVR. 6. Cardiomyopathy. 7. Coronary artery disease status post stenting. 8. Hyperlipidemia. 9. Hypertension. 10. Diabetes mellitus. 11. Chronic kidney disease. PLAN 1. Neurological checks q. one hourly. 2. Maintain head of bed flat. 3. Allow permissive hypertension for the next 24 hours. Treat for blood pressure greater than 220/120. 4. Continue Eliquis at current home dose. 5. DVT prophylaxis. 6. Nothing by mouth. 7. Speech therapy recommendations are appreciated. 8. The patient will need inpatient rehab. 9. I personally reviewed the MRI of the brain that revealed extensive white matter ischemic changes cortical and subcortical regions with extensive cortical atrophy particularly in the bilateral frontal parietal region. 10. Continue supportive medical therapy. Thank you for the opportunity to participate in the care of your patient. MD LANE Porter/KK /8:13 PM /8:42 PM MTDKeyla
[2017-07-07] VITALS (9 sets, daily range): BP systolic 133–180; BP diastolic 53–96; PULSE 64–132; RESP 16–34; TEMP 98.2–100.2; O2SAT 94–100
[2017-07-07 02:38] LABS: APTT (PATIENT) 75.2 SEC (24.3-30.1)
[2017-07-07] MEDS: CHLORHEXIDINE GLUCONATE 2 % 1 PACK (2 CLOTHS) TOP SCH (04:00)
[2017-07-07 04:31] LABS: AUTOMATED NEUTROPHIL # 17.3 TH/MM3 (1.8-7.7); BASOPHIL # 0.1 TH/MM3 (0-0.2); BASOPHIL % 0.3 % (0.0-2.0); EOSINOPHIL % 0.1 % (0.0-4.0); HEMATOCRIT 47.6 % (39.0-51.0); HEMO FLAGS DIFF FINAL; LYMPH % 8.2 % (9.0-44.0); LYMPHOCYTE # 1.6 TH/MM3 (1.0-4.8); MEAN CORPUSCULAR HGB CONC 34.1 % (32.0-36.0); MONO % 4.8 % (0.0-8.0); NEUT % 86.6 % (16.0-70.0); PLATELET COUNT 217 TH/MM3 (150-450); RED CELL DISTRIBUTION WIDTH 15.3 % (11.6-17.2)
[2017-07-07 04:59] LABS: ANION GAP 13 MEQ/L (5-15); AST (GOT) 16 U/L (15-37); BICARBONATE 17.4 MEQ/L (21.0-32.0); BLOOD UREA NITROGEN 32 MG/DL (7-18); CHLORIDE 106 MEQ/L (98-107); GLOMERULAR FILTRATION RATE 54 ML/MIN (>89); POTASSIUM 3.9 MEQ/L (3.5-5.1); SODIUM (NA) 136 MEQ/L (136-145)
[2017-07-07 05:01] LABS: ALKALINE PHOSPHATASE 73 U/L (45-117); ALT (GPT) 17 U/L (12-78); TOTAL BILIRUBIN ADULT 0.8 MG/DL (0.2-1.0)
[2017-07-07 05:04] LABS: HDL CHOLESTEROL 53.6 MG/DL (40.0-60.0); LDL CHOLESTEROL 68 MG/DL (0-99)
[2017-07-07] MEDS: INSULIN NovoLIN REGULAR SUPPLEMENTAL SCALE SQ SCH ×6 (06:00→22:00)
[2017-07-07] MEDS ORDERED: DIGOXIN 0.5 MG/2 ML VIAL IV PUSH ONE ×2 (07:30→16:15)
--- NOTE | 2017-07-07 07:40 | PD.CARD.PN ---
Subjective Subjective Remarks Now more aphasic, with right hemiplegia. Ventricular rate 130's. Cardizem drip reduced last night to 2.5 mg/hr by mine engineering supervisor. On phenylephrine for BP support. Objective Medications Current Medications Medications (Trade) Dose Ordered Sig/Víctor Route Start Time Stop Time Status Last Admin Sodium Chloride 1,000 ml @ 70 mls/hr [id number] IV 07/06/17 06:45 Future Hold 07/06/17 10:30 Diltiazem HCl 125 mg/Sodium Chloride 125 ml @ 5 mls/hr TITRATE PRN IV 07/06/17 08:00 07/06/17 18:37 (D50w (Vial) Inj) 50 ml UNSCH PRN IV PUSH 07/06/17 08:45 (Glucagon Inj) 1 mg UNSCH PRN OTHER 07/06/17 08:45 (NovoLIN R SUPPLEMENTAL SCALE) 1 Q6HR SQ 07/06/17 12:00 07/06/17 18:06 (NS Flush) 2 ml BID IV FLUSH 07/06/17 09:00 07/06/17 21:00 (NS Flush) 2 ml UNSCH PRN IV FLUSH 07/06/17 08:45 (Trandate Inj) 10 mg Q2H PRN IV PUSH 07/06/17 08:45 (Aspirin Supp) 300 mg DAILY RECTAL 07/06/17 10:00 07/06/17 12:17 (Pravachol) 40 mg HS PO 07/06/17 21:00 (Tylenol) 650 mg Q6H PRN PO 07/06/17 08:45 (Protonix Inj) 40 mg DAILY IV PUSH 07/06/17 10:00 07/06/17 12:17 (Tears Naturale Opth Soln) 1 drop TID EACH EYE 07/06/17 09:00 07/06/17 18:07 (Zofran Inj) 4 mg Q6H PRN IV PUSH 07/06/17 08:45 (Albuterol Neb) 2.5 mg Q2HR NEB PRN INH 07/06/17 08:45 Miscellaneous Information 1 Q361D XX 07/06/17 08:45 07/06/17 08:45 (Chlorhexidine 2% Cloth) 3 pack Taper DAILY@04 TOP 07/07/17 04:00 07/03/18 03:59 (Chlorhexidine 2% Cloth) 3 pack UNSCH PRN TOP 07/06/17 08:45 (Britney-Colace) 1 tab BID PO 07/06/17 10:00 (Milk Of Magnesia Liq) 30 ml Q12H PRN PO 07/06/17 08:45 (Senokot) 17.2 mg Q12H PRN PO 07/06/17 08:45 (Dulcolax Supp) 10 mg DAILY PRN RECTAL 07/06/17 08:45 (Lactulose Liq) 30 ml DAILY PRN PO 07/06/17 08:45 (Brethine Inj) 1 mg UNSCH PRN SQ 07/06/17 10:15 (NS Flush) See Protocol DAILY IV FLUSH 07/07/17 09:00 07/06/17 21:26 (NS Flush) See Protocol UNSCH PRN IV FLUSH 07/06/17 12:15 (Heparin Central Flush) See Protocol DAILY IV FLUSH 07/07/17 09:00 (Heparin Central Flush) See Protocol UNSCH PRN IV FLUSH 07/06/17 12:15 (NS Flush) UNSCH PRN IV FLUSH 07/06/17 12:15 (NS Flush) SEE PROTOCOL UNSCH PRN IV FLUSH 07/06/17 12:15 (NS Flush) 3 ml UNSCH PRN IV FLUSH 07/06/17 12:15 Norepinephrine Bitartrate 4 mg/ Sodium Chloride 250 ml @ 7.5 mls/hr TITRATE PRN IV 07/06/17 17:45 (Brethine Inj) 1 mg UNSCH PRN SQ 07/06/17 17:45 Phenylephrine HCl 160 mg/Sodium Chloride 500 ml @ 7.5 mls/hr TITRATE PRN IV 07/06/17 18:00 07/06/17 18:34 Heparin Sodium (Porcine) 99945 units/Sodium Chloride 250 ml @ 13 mls/hr TITRATE PRN IV 07/06/17 18:00 07/06/17 18:36 (Cardizem Inj) 15 mg ONCE ONCE IV PUSH 07/07/17 07:30 07/07/17 07:31 UNV Diltiazem HCl 125 mg/Sodium Chloride 125 ml @ 10 mls/hr TITRATE PRN IV 07/07/17 07:30 UNV (Lanoxin Inj) 0.25 mg ONCE ONCE IV PUSH 07/07/17 07:30 07/07/17 07:31 UNV Vital Signs / I&O Vital Signs Date Time Temp Pulse Resp B/P (MAP) Pulse Ox O2 Delivery O2 Flow Rate FiO2 07/07/17 06:00 110 07/07/17 04:00 95 07/07/17 04:00 98.2 95 16 169/70 (103) 100 07/07/17 04:00 95 169/70 07/07/17 03:00 128 141/65 07/07/17 02:00 122 07/07/17 02:00 122 163/80 07/07/17 01:00 120 156/72 07/07/17 00:00 132 07/07/17 00:00 98.4 114 22 180/96 (124) 100 07/07/17 00:00 118 173/98 07/06/17 22:51 100 21 07/06/17 22:00 120 07/06/17 20:00 112 07/06/17 20:00 99.4 107 20 186/100 (128) 100 07/06/17 19:00 100 Room Air 07/06/17 18:37 110 157/83 07/06/17 18:34 114 157/83 07/06/17 18:00 118 07/06/17 16:00 100.5 120 14 175/109 (131) 94 07/06/17 16:00 120 07/06/17 14:00 106 07/06/17 12:00 98 07/06/17 12:00 97.3 98 24 205/74 (117) 100 07/06/17 10:30 131/65 07/06/17 10:00 94 07/06/17 09:48 07/06/17 09:15 112 07/06/17 09:15 99 Room Air 07/06/17 09:15 98.0 112 25 118/64 (82) 94 07/06/17 08:50 103 16 137/77 (97) 97 Room Air I/O 07/06/17 07/06/17 07/06/17 07/07/17 07/07/17 07/07/17 07:00 15:00 23:00 07:00 15:00 23:00 Intake Total 500 ml 561 ml Output Total 600 ml 1700 ml Balance -100 ml -1139 ml Intake Oral 0 ml IV Total 500 ml 561 ml Output Urine Total 600 ml 1700 ml # Bowel Movements 0 Physical Exam No JVD Lungs: CTA Heart Irreg, S1, S2 Ext: No C/C/E Neuro eval per Dr. Pressley. Laboratory Laboratory Tests Test 07/06/17 09:40 07/06/17 13:46 07/06/17 18:50 07/07/17 02:10 Nasal Screen MRSA (PCR) MRSA NOT DETECTED White Blood Count 12.4 TH/MM3 Red Blood Count 4.91 MIL/MM3 Hemoglobin 14.3 GM/DL Hematocrit 42.3 % Mean Corpuscular Volume 86.1 FL Mean Corpuscular Hemoglobin 29.0 PG Mean Corpuscular Hemoglobin Concent 33.7 % Red Cell Distribution Width 15.6 % Platelet Count 185 TH/MM3 Mean Platelet Volume 8.2 FL Prothrombin Time 12.8 SEC Prothromb Time International Ratio 1.2 RATIO Activated Partial Thromboplast Time 30.8 SEC 28.9 SEC 75.2 SEC Test 07/07/17 04:20 White Blood Count 20.0 TH/MM3 Red Blood Count 5.60 MIL/MM3 Hemoglobin 16.2 GM/DL Hematocrit 47.6 % Mean Corpuscular Volume 85.0 FL Mean Corpuscular Hemoglobin 29.0 PG Mean Corpuscular Hemoglobin Concent 34.1 % Red Cell Distribution Width 15.3 % Platelet Count 217 TH/MM3 Mean Platelet Volume 8.3 FL Neutrophils (%) (Auto) 86.6 % Lymphocytes (%) (Auto) 8.2 % Monocytes (%) (Auto) 4.8 % Eosinophils (%) (Auto) 0.1 % Basophils (%) (Auto) 0.3 % Neutrophils # (Auto) 17.3 TH/MM3 Lymphocytes # (Auto) 1.6 TH/MM3 Monocytes # (Auto) 1.0 TH/MM3 Eosinophils # (Auto) 0.0 TH/MM3 Basophils # (Auto) 0.1 TH/MM3 CBC Comment DIFF FINAL Differential Comment Blood Urea Nitrogen 32 MG/DL Creatinine 1.30 MG/DL Random Glucose 272 MG/DL Total Protein 7.4 GM/DL Albumin 3.6 GM/DL Calcium Level 8.9 MG/DL Phosphorus Level 3.3 MG/DL Magnesium Level 1.0 MG/DL Alkaline Phosphatase 73 U/L Aspartate Amino Transf (AST/SGOT) 16 U/L Alanine Aminotransferase (ALT/SGPT) 17 U/L Total Bilirubin 0.8 MG/DL Sodium Level 136 MEQ/L Potassium Level 3.9 MEQ/L Chloride Level 106 MEQ/L Carbon Dioxide Level 17.4 MEQ/L Anion Gap 13 MEQ/L Estimat Glomerular Filtration Rate 54 ML/MIN Lactic Acid Level 1.7 mmol/L Triglycerides Level 66 MG/DL Cholesterol Level 135 MG/DL LDL Cholesterol 68 MG/DL HDL Cholesterol 53.6 MG/DL Cholesterol/HDL Ratio 2.51 RATIO Imaging Last 48 hours Impressions Neck CTA 07/06/17600 Signed Impressions: Service Date/Time: Thursday, July 06, 2017 06:10 - CONCLUSION: Scattered plaque at the origin the great vessels, the carotid bulb regions, and proximal internal carotid arteries bilaterally without a significant stenosis seen. Bud Cash MD Head CTA 07/06/17600 Signed Impressions: Service Date/Time: Thursday, July 06, 2017 06:10 - CONCLUSION: Focal stenosis at the proximal left posterior cerebral artery. The distal flow appears normal throughout. Bud Cash MD Head CT 07/06/17 0541 Signed Impressions: Service Date/Time: Thursday, July 06, 2017 05:36 - CONCLUSION: 1. No acute abnormality is seen. 2. Atrophy. 3. Suspected small vessel ischemic change throughout the white matter. 4. Old lacunar infarct of the right basal ganglia. 5. Mild area of encephalomalacia at the left occipital lobe. Bud Cash MD Chest X-Ray 07/06/17 0541 Signed Impressions: Service Date/Time: Thursday, July 06, 2017 06:03 - CONCLUSION: Enlargement of the cardiac silhouette. Bud Cash MD Cervical Spine CT 07/06/17 0541 Signed Impressions: Service Date/Time: Thursday, July 06, 2017 05:37 - CONCLUSION: 1. No acute bony injury is seen. 2. Degenerative change. Bud Cash MD Chest X-Ray 07/06/17 0000 Signed Impressions: Service Date/Time: Thursday, July 06, 2017 12:04 - CONCLUSION: PICC line right atrium. Maik Yu MD FACR Brain MRI 07/06/17 Signed Impressions: Service Date/Time: Thursday, July 06, 2017 12:47 - CONCLUSION: Subacute left partial MCA territory stroke. Bud Joseph MD Assessment and Plan Problem List: (1) Atrial fibrillation with rapid ventricular response ICD Codes: I48.91 - Unspecified atrial fibrillation (2) Stroke ICD Codes: I63.9 - Stroke Status: Acute (3) Acute on chronic systolic (congestive) heart failure ICD Codes: I50.23 - Acute on chronic systolic (congestive) heart failure (4) CAD (coronary artery disease) ICD Codes: I25.10 - Atherosclerotic heart disease of [place] coronary artery without angina pectoris Status: Acute (5) HTN (hypertension) ICD Codes: I10 - HTN (hypertension) Status: Acute (6) DM (diabetes mellitus) ICD Codes: E11.9 - DM (diabetes mellitus) Status: Acute (7) CKD (chronic kidney disease) ICD Codes: N18.9 - CKD (chronic kidney disease) Status: Acute Assessment and Plan Patient failed swallow testing and is NPO. On IV Heparin. Will resume Eliquis 5mg PO BID when able. Adjust IV Cardizem for better VR control. I will add some IV digoxin to assist with this. Continue IV phenylephrine for BP support. Following with you. Prognosis guarded, Code Status Full Discussed Condition With Claudia Frey, staffing program manager and patient. Problem Qualifiers (1) Stroke: Qualified Codes: I63.9 - Cerebral infarction, unspecified Alonso Sánchez MD Jul 07, 2017 07:40
[2017-07-07] MEDS ORDERED: GLUCAGON 1 MG/ML VIAL OTHER PRN (07:45)
[2017-07-07] MEDS ORDERED: DEXTROSE 50% IN WATER 50 ML VIAL(D50) IV PUSH PRN (07:45)
[2017-07-07] MEDS ORDERED: DILTIAZEM HCL 25 MG/5 ML VIAL IV PUSH ONE (08:00)
--- NOTE | 2017-07-07 08:13 | PD.PROCEDR ---
Procedure Note Procedure DATE: 07/07/2017 PROCEDURE: Right femoral arterial catheter placement INDICATION: Hemodynamic access: Patient on Vasopressors DETAILS OF PROCEDURE The patient was placed in supine position. The skin was cleansed with Chloraprep. Additional barrier precautions included large sterile drape, sterile gloves, sterile gown, face mask, and hat. 1% lidocaine was used for local anesthesia. Under direct ultrasound guidance and on the initial attempt, the artery was accessed with an introducer needle. The guide wire was advanced. Using Seldinger technique 20 gauge arterial catheter was placed. The guide wire was removed. The catheter was connected to a transducer line and flushed with saline. The video monitor displayed normal arterial wave forms. The catheter was secured with 2-0 silk. A sterile dressing with antibiotic disc was applied. ESTIMATED BLOOD LOSS: minimal COMPLICATIONS: None Renato Taylor MD Jul 07, 2017 08:13
[2017-07-07] MEDS ORDERED: POTASSIUM CHLOR 20 MEQ PREMIX 100 ML IV PRN ×2 (08:15)
[2017-07-07] MEDS ORDERED: POTASSIUM PHOSPHATE INJ 30 MMOL in SODIUM CHLOR 0.9% 250 ML INJ 250 ML IV PRN (08:15)
[2017-07-07] MEDS ORDERED: POTASSIUM PHOSPHATE MONOBASIC 500 MG TAB PO/TUBE PRN (08:15)
[2017-07-07] MEDS ORDERED: MAGNESIUM OXIDE 400 MG TAB PO PRN (08:15)
[2017-07-07] MEDS ORDERED: POTASSIUM CHLOR 40 MEQ PREMIX 100 ML IV PRN ×2 (08:15)
[2017-07-07] MEDS ORDERED: MAGNESIUM SULFATE INJ 2 GM in SODIUM CHLORIDE 0.9% INJ 96 ML IV PRN (08:15)
[2017-07-07] MEDS ORDERED: POTASSIUM CHLORIDE 25 MEQ EFFERVESCENT TAB PO PRN (08:15)
[2017-07-07] MEDS ORDERED: POTASSIUM PHOSPHATE MONOBASIC 500 MG TAB PO PRN (08:15)
[2017-07-07] MEDS ORDERED: MAGNESIUM SULFATE INJ 4 GM in SODIUM CHLORIDE 0.9% INJ 92 ML IV PRN (08:15)
[2017-07-07] MEDS ORDERED: BUMETANIDE INJ 1 MG/4 ML VIAL IV PUSH ONE (08:15)
--- NOTE | 2017-07-07 08:22 | HHI.CCPN ---
Subjective Remarks/Hospital Course This is a 76-year-old male. Date of admission 07/06/2017. Past medical history includes history of right basal ganglia CVA, dementia disorder NOS, atrial fibrillation, chronic systolic heart failure, hypertension, disc edema, gastroesophageal disease with a history of a gastric ulcer status post appendectomy and clipping 2011, diabetes mellitus poorly controlled. Patient presented to [facility] initially as a level II trauma after being found at home and down for unknown duration of time. Neighbor's had not recently seen the patient and were concerned and called EMS. Patient had a large hematomas and was placed in a c-collar. Incomprehensible groaning sounds. Patient had generalized weakness according to records. NIH score is 23. GCS was 9 now around 11 [id number] as he is currently talking, comprehensibly and spontaneously moving his left upper extremity and left lower extremity CT brain revealed old right basal ganglia CVA in the left occipital encephalomalacia. Patient was in A. fib with RVR with heart rate in the 120s. BMP revealed currently 1.8. Leukocytosis 12.2. Patient received 2 g of cefazolin and DTP 0.5 mcg IM 1 Cardiology/ seen the patient. Patient recommended Lopressor 5 mm IV 1 for rate control. Currently on a diltiazem drip to maintain heart rate less than 100. Patient's source of stroke likely embolic. Echocardiogram has been ordered. Last EF 20% with moderate MR/TR and pulmonary pressure 54 mmHg. 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 CT brain revealed old right basal CVA and cephalization the left occipital lobe. Not a candidate for alteplase secondary to unknown duration of time and apixaban use. CTA head and neck revealed left SOIL CONSERVATIONIST stenosis. Generalized plaque in the carotid/carotid bulb the vertebral artery regions otherwise not flow-limiting. He will seeing consultation. MRI of the brain pending. Subjective 07/07: Worsening right facial droop/right upper and lower extremity weakness. Patient is more awake and interactive attempting to vocalize. Currently on phenylephrine drip at 20 mics grams from to maintain systolic pressure greater than 180. Cardizem drip added for rate control Objective Vital Signs Date Time Temp Pulse Resp B/P (MAP) Pulse Ox O2 Delivery O2 Flow Rate FiO2 07/07/17 06:00 110 07/07/17 04:00 98.2 16 169/70 (103) 100 07/06/17 22:51 21 07/06/17 19:00 Room Air 07/06/17 06:02 2.00 Intake and Output 07/07/17 07/07/17 07/07/17 07:59 15:59 23:59 Intake Total 561 ml Output Total 1700 ml Balance -1139 ml Result Diagram: 07/07/1741907/07/17 0420 Imaging Last Impressions Neck CTA 07/06/17600 Signed Impressions: Service Date/Time: Thursday, July 06, 2017 06:10 - CONCLUSION: Scattered plaque at the origin the great vessels, the carotid bulb regions, and proximal internal carotid arteries bilaterally without a significant stenosis seen. Bud Cash MD Head CTA 07/06/17600 Signed Impressions: Service Date/Time: Thursday, July 06, 2017 06:10 - CONCLUSION: Focal stenosis at the proximal left posterior cerebral artery. The distal flow appears normal throughout. Bud Cash MD Head CT 07/06/17 0541 Signed Impressions: Service Date/Time: Thursday, July 06, 2017 05:36 - CONCLUSION: 1. No acute abnormality is seen. 2. Atrophy. 3. Suspected small vessel ischemic change throughout the white matter. 4. Old lacunar infarct of the right basal ganglia. 5. Mild area of encephalomalacia at the left occipital lobe. Bud Cash MD Chest X-Ray 07/06/17 0541 Signed Impressions: Service Date/Time: Thursday, July 06, 2017 06:03 - CONCLUSION: Enlargement of the cardiac silhouette. Bud Cash MD Cervical Spine CT 07/06/17 0541 Signed Impressions: Service Date/Time: Thursday, July 06, 2017 05:37 - CONCLUSION: 1. No acute bony injury is seen. 2. Degenerative change. Bud Cash MD Brain MRI 07/06/17 0000 Signed Impressions: Service Date/Time: Thursday, July 06, 2017 12:47 - CONCLUSION: Subacute left partial MCA territory stroke. Bud Joseph MD Objective Remarks GENERAL: 76-year-old male, resting in bed in no acute distress on nasal cannula SKIN: Warm and dry. Hematoma without current active bleeding HEAD: Normocephalic. EYES: Pupils equal and round around 3 mm bilaterally and reactive. No scleral icterus. No injection or drainage. ENT: No nasal bleeding or discharge. Mucous membranes pink and moist. NECK: Trachea midline. No JVD. CARDIOVASCULAR: Tachycardia, IR. S1, S2. No S4. 1/6 systolic murmur RESPIRATORY: Clear to auscultation. Breath sounds equal bilaterally. GASTROINTESTINAL: Abdomen soft, non-tender, nondistended. Hypoactive bowel sounds are appreciated MUSCULOSKELETAL: Extremities without edema. No obvious deformities. NEUROLOGICAL: Awake and alert. Right facial droop. Strength 5 left upper extremity. 2 out of 5 left lower extremity. 1 out of 5 right upper and lower extremity. Decreased sensation to light touch and pinprick bilaterally. DTRs 1 + bilateral upper and lower extremities including brachial, patellar and Achilles. Unable to assess pronator. Gait was not assessed. Urinary Catheter: Yes Assessment to: Continue Ackerman insert reason: Prolonged Immobilization Vascular Central Line Catheter: Yes Assessment to: Continue Date of Insertion: Jul 06, 2017 Line: PICC Side: Left Location: Antecubital A/P Assessment and Plan Neuro/Psych: CVA History of right basal ganglia CVA Dementia disorder NOS CT brain 07/06 revealed old right basal ganglia CVA. Encephalization left occipital lobe CTA brain - focal left SOIL CONSERVATIONIST stenosis. CTA neck - generalized plaquing with no flow-limiting stenosis noted Dr. Pressley - neurology - not a candidate for alteplase secondary to unknown duration of time down and currently on Apixaban Continue aspirin will give 300 mg per rectum daily if unable to take by mouth Goal blood pressure control to 220/120 Head of bed at 0 MRI brain 07/06 subacute left parietal CVA and MCA distribution? 2-D echocardiogram ordered PT/OT/ST evaluate and treat CV: Atrial fibrillation with rapid ventricular response Chronic systolic heart failure ejection fraction 20% Coronary artery disease status post stent [address] Ohara - cardiology following. Currently on diltiazem drip for rate control at 5 mg an hour 2-D echocardiogram 05/26 - EF 20%. LV dilatation. Moderate MR/TR. PAP 54 mmHg Home medications include carvedilol 6.25 mg twice a day, ramipril 1.25 mg twice a day and Aldactone 25 mg daily -Patient is on rosuvastatin 20 mg by mouth daily for dyslipidemia. Along with fenofibrate 145 mg daily EKG revealed A. fib with RVR. No ischemic changes. Per cardiology patient's heart is usually elevated Lipid panel/2-D echocardiogram per CVA protocol ordered Currently on phenylephrine drip at 200 per minute for systolic blood pressure goals as above Resp: Prior tobaccoism Nasal cannula to maintain saturations greater than equal to 92% Incentive spirometry while awake Follow-up on chest x-ray Strict aspiration precautions GI: Gastroesophageal reflux disease History of upper GI bleed - gastric ulcer status post clipping 2011 Patient is currently nothing by mouth Pantoprazole for GI prophylaxis. Patient is on omeprazole 20 mg by mouth daily for gastroesophageal reflux disease Docusate sodium/senna 1 tablet twice a day for bowel regimen : Ackerman catheter if indicated for accurate I's and O's in a critically ill patient Endo: Diabetes mellitus Euglycemia Home medications include metformin 500 mg daily, glimepiride 4 mg twice a day and linagliptin 18 mg/3 milliliters 0.6 mg subcutaneous daily Currently on sliding scale with Accu-Cheks every 4 hours to maintain euglycemia/ high regimen Novulin R Check TSH Renal: Chronic kidney disease stage IIIa Creatinine around baseline currently 1.8. Currently 1.3 Monitor urine output Accurate I's and O's Avoid nephrotoxic medication Heme: Chronic Apixaban use Monitor CBC daily. Follow trends. Coags within normal limits Does not meet transfusion thresholds at this time Currently in heparin drip for anticoagulation due to nothing by mouth status ID: Monitor for infection Status post tetanus injection of 15 mg IM 1 and cefazolin 2 g IV 1 for hematoma MSK: PT/OT evaluate and treat FEN: Hypo-magnesium 4 g mag sulfate 1. Recheck this evening Replace electrolytes as clinically indicated Access -Left PICC line day #2 placed 07/06 - Right femoral arterial line day 1 placed 07/07 Prophylaxis - GI - pantoprazole - DVT - SCDs/ST pharmacological prophylaxis once assess swallow evaluation. Apixaban versus heparin drip 3 follow-up Renato Taylor MD Jul 07, 2017 08:22
[2017-07-07] MEDS: DOCUSATE SODIUM 50 MG/SENNA 8.6 MG TAB PO SCH ×2 (08:59→20:38)
[2017-07-07] MEDS: MAGNESIUM SULFATE 1 GM PREMIX 100 ML IV SCH ×7 (09:00→22:20)
[2017-07-07] MEDS: SODIUM CHLORIDE 0.9% FLUSH 5 ML FLUSH IV FLUSH SCH ×2 (09:00→20:38)
[2017-07-07] MEDS ORDERED: DILTIAZEM INJ 125 MG in SODIUM CHLORIDE 0.9% INJ 100 ML IV PRN (09:00)
[2017-07-07] MEDS: PANTOPRAZOLE SODIUM 40 MG VIAL IV PUSH SCH (09:36)
[2017-07-07] MEDS: PHENYLEPHRINE INJ 160 MG in SODIUM CHLORID 0.9% 500 ML INJ 484 ML IV PRN ×2 (09:41→21:00)
[2017-07-07 09:45] LABS: APTT (PATIENT) 41.1 SEC (24.3-30.1)
[2017-07-07] MEDS: ARTIFICIAL TEARS OPTH SOLN 15 ML BTL EACH EYE SCH ×2 (09:45→18:00)
[2017-07-07] MEDS: ASPIRIN 300 MG SUPP RECTAL SCH (09:57)
[2017-07-07 11:27] LABS: INTERNATIONAL NORMALIZED RATIO 1.3 RATIO; PROTHROMBIN TIME - PATIENT 14.2 SEC (9.8-11.6)
[2017-07-07 15:56] LABS: HEMOGLOBIN A1b 2.5 %; HEMOGLOBIN LA1C 3.4 %
--- NOTE | 2017-07-07 15:57 | HHI.PR ---
Review/Management Diagnosis 1. Acute / subacute ischemic stroke. 2. History of remote right basal ganglia stroke and left occipital lobe encephalomalacia. 3. History of dementia. 4. The patient was not a candidate for IV TPA due to unknown last time seen normal and currently on apixaban. 5. Atrial fibrillation with RVR. 6. Cardiomyopathy. 7. Coronary artery disease status post stenting. 8. Hyperlipidemia. 9. Hypertension. 10. Diabetes mellitus. 11. Chronic kidney disease. Plan - Neurological checks q. one hourly. - Elevate head of bed - Goal BP is 140-145/75-80 - Continue Eliquis at current home dose. - DVT prophylaxis. - NPO - Speech therapy recommendations are appreciated. - The patient will need inpatient rehab. - I personally reviewed the MRI of the brain that revealed extensive white matter ischemic changes at both the cortical and subcortical regions with extensive cortical atrophy particularly in the bilateral frontal and parietal region. - Discussed case with RN, and daughter at bed side - Continue supportive medical therapy. Diagnosis/Plan: Subjective Subjective Comments Patient lays in bed , awake, aware, oriented to self, place not to time Daughter at bed side More pronounced right facial weakness As per RN, failed swallow test MRI brain revealed left acute ischemic parietal infarction, moderate to severe cortical atrophy, particularly at the frontal an bi-parietal regions Active Medications Current Medications Medications (Trade) Dose Ordered Sig/Víctor Route Start Time Stop Time Status Last Admin Sodium Chloride 1,000 ml @ 70 mls/hr [id number] IV 07/06/17 06:45 Future Hold 07/06/17 10:30 (D50w (Vial) Inj) 50 ml UNSCH PRN IV PUSH 07/06/17 08:45 (Glucagon Inj) 1 mg UNSCH PRN OTHER 07/06/17 08:45 (NS Flush) 2 ml BID IV FLUSH 07/06/17 09:00 07/07/17 09:00 (NS Flush) 2 ml UNSCH PRN IV FLUSH 07/06/17 08:45 (Trandate Inj) 10 mg Q2H PRN IV PUSH 07/06/17 08:45 (Aspirin Supp) 300 mg DAILY RECTAL 07/06/17 10:00 07/07/17 09:57 (Pravachol) 40 mg HS PO 07/06/17 21:00 (Tylenol) 650 mg Q6H PRN PO 07/06/17 08:45 (Protonix Inj) 40 mg DAILY IV PUSH 07/06/17 10:00 07/07/17 09:36 (Tears Naturale Opth Soln) 1 drop TID EACH EYE 07/06/17 09:00 07/07/17 09:45 (Zofran Inj) 4 mg Q6H PRN IV PUSH 07/06/17 08:45 (Albuterol Neb) 2.5 mg Q2HR NEB PRN INH 07/06/17 08:45 Miscellaneous Information 1 Q361D XX 07/06/17 08:45 07/06/17 08:45 (Chlorhexidine 2% Cloth) 3 pack Taper DAILY@04 TOP 07/07/17 04:00 07/03/18 03:59 (Chlorhexidine 2% Cloth) 3 pack UNSCH PRN TOP 07/06/17 08:45 (Britney-Colace) 1 tab BID PO 07/06/17 10:00 (Milk Of Magnesia Liq) 30 ml Q12H PRN PO 07/06/17 08:45 (Senokot) 17.2 mg Q12H PRN PO 07/06/17 08:45 (Dulcolax Supp) 10 mg DAILY PRN RECTAL 07/06/17 08:45 (Lactulose Liq) 30 ml DAILY PRN PO 07/06/17 08:45 (NS Flush) See Protocol DAILY IV FLUSH 07/07/17 09:00 07/06/17 21:26 (NS Flush) See Protocol UNSCH PRN IV FLUSH 07/06/17 12:15 (Heparin Central Flush) See Protocol DAILY IV FLUSH 07/07/17 09:00 (Heparin Central Flush) See Protocol UNSCH PRN IV FLUSH 07/06/17 12:15 (NS Flush) UNSCH PRN IV FLUSH 07/06/17 12:15 (NS Flush) SEE PROTOCOL UNSCH PRN IV FLUSH 07/06/17 12:15 (NS Flush) 3 ml UNSCH PRN IV FLUSH 07/06/17 12:15 Norepinephrine Bitartrate 4 mg/ Sodium Chloride 250 ml @ 7.5 mls/hr TITRATE PRN IV 07/06/17 17:45 (Brethine Inj) 1 mg UNSCH PRN SQ 07/06/17 17:45 Phenylephrine HCl 160 mg/Sodium Chloride 500 ml @ 7.5 mls/hr TITRATE PRN IV 07/06/17 18:00 07/07/17 09:41 Heparin Sodium (Porcine) 60581 units/Sodium Chloride 250 ml @ 13 mls/hr TITRATE PRN IV 07/06/17 18:00 07/06/17 18:36 Diltiazem HCl 125 mg/Sodium Chloride 125 ml @ 10 mls/hr TITRATE PRN IV 07/07/17 09:00 (NovoLIN R SUPPLEMENTAL SCALE) 1 Q4HR SQ 07/07/17 08:00 07/07/17 09:32 Potassium Chloride 100 ml @ 50 mls/hr Q2H PRN IV 07/07/17 08:15 Potassium Chloride 100 ml @ 50 mls/hr Q2H PRN IV 07/07/17 08:15 (K-Lyte Cl Eff) 50 meq UNSCH PRN PO 07/07/17 08:15 Potassium Chloride 100 ml @ 25 mls/hr UNSCH PRN IV 07/07/17 08:15 Potassium Chloride 100 ml @ 50 mls/hr Q2H PRN IV 07/07/17 08:15 Magnesium Sulfate 4 gm/Sodium Chloride 100 ml @ 50 mls/hr UNSCH PRN IV 07/07/17 08:15 (Mag-Ox) 800 mg UNSCH PRN PO 07/07/17 08:15 Magnesium Sulfate 2 gm/Sodium Chloride 100 ml @ 50 mls/hr UNSCH PRN IV 07/07/17 08:15 (K-Phos) 2,000 mg Q4H PRN PO 07/07/17 08:15 Sodium Phosphate 30 mmol/Sodium Chloride 250 ml @ 42 mls/hr UNSCH PRN IV 07/07/17 08:15 (K-Phos) 2,000 mg UNSCH PRN PO/TUBE 07/07/17 08:15 Potassium Phosphate 30 mmol/ Sodium Chloride 260 ml @ 42 mls/hr UNSCH PRN IV 07/07/17 08:15 (Lanoxin Inj) 0.25 mg ONCE ONCE IV PUSH 07/07/17 15:45 07/07/17 15:46 UNV (Lanoxin Inj) 0.25 mg DAILY IV PUSH 07/08/17 08:00 UNV Allergies Allergies Coded Allergies allopurinol (Verified Allergy, Unknown, 06/29/17) hydrochlorothiazide (Verified Allergy, Unknown, 06/29/17) penicillin G (Unverified Allergy, Unknown, 06/29/17) acetaminophen (Unverified Adverse Reaction, Intermediate, VOMITING, 06/29/17) propoxyphene (Unverified Adverse Reaction, Intermediate, VOMITING, 06/29/17) Uncoded Allergies potassium citrate ( Allergy, Unknown, 06/29/17) Review of Systems All other ROS: ROS reviewed as documented in chart Exam I&O / VS 07/07/17 07/07/17 07/08/17 15:00 23:00 07:00 Intake Total 118 ml Balance 118 ml IV Total 118 ml Vital Signs Date Time Temp Pulse Resp B/P (MAP) Pulse Ox O2 Delivery O2 Flow Rate FiO2 07/07/17 11:20 86 144/62 07/07/17 10:00 86 07/07/17 09:41 92 159/79 07/07/17 09:03 94 21 07/07/17 08:00 100.2 114 34 133/78 (96) 95 07/07/17 08:00 114 07/07/17 07:00 96 Room Air 07/07/17 06:00 110 07/07/17 04:00 95 07/07/17 04:00 98.2 95 16 169/70 (103) 100 07/07/17 04:00 95 169/70 07/07/17 03:00 128 141/65 07/07/17 02:00 122 07/07/17 02:00 122 163/80 07/07/17 01:00 120 156/72 07/07/17 00:00 132 07/07/17 00:00 98.4 114 22 180/96 (124) 100 07/07/17 00:00 118 173/98 07/06/17 22:51 100 21 07/06/17 22:00 120 07/06/17 20:00 112 07/06/17 20:00 99.4 107 20 186/100 (128) 100 07/06/17 19:00 100 Room Air 07/06/17 18:37 110 157/83 07/06/17 18:34 114 157/83 07/06/17 18:00 118 07/06/17 16:00 100.5 120 14 175/109 (131) 94 07/06/17 16:00 120 Exam Comments GENERAL: Awake, alert, daughter at bed side. HEENT: Atraumatic, normocephalic. No jaundice. NECK: Trachea in the midline. No signs of meningeal irritation. CARDIOVASCULAR: Irregularly irregular heart rate. Systolic murmur. LUNGS: Clear to auscultation. No wheezes. GASTROINTESTINAL: Soft abdomen, nontender. MUSCULOSKELETAL: No edema, cyanosis or deformities. NEUROLOGIC: Awake, alert.oriented to person, place not to time, speaks with a husky voice, tries to say words, mild dysphonia, and dysphasia, more pronounced right facial palsy, moves right side , pyamidal weakness of right UE&LE in the right side, normal left side. Objective Radiology Results Last 72 hours Impressions Neck CTA 07/06/17600 Signed Impressions: Service Date/Time: Thursday, July 06, 2017 06:10 - CONCLUSION: Scattered plaque at the origin the great vessels, the carotid bulb regions, and proximal internal carotid arteries bilaterally without a significant stenosis seen. Bud Cash MD Head CTA 07/06/17 06 Signed Impressions: Service Date/Time: Thursday, July 06, 2017 06:10 - CONCLUSION: Focal stenosis at the proximal left posterior cerebral artery. The distal flow appears normal throughout. Bud Cash MD Head CT 07/06/17 0541 Signed Impressions: Service Date/Time: Thursday, July 06, 2017 05:36 - CONCLUSION: 1. No acute abnormality is seen. 2. Atrophy. 3. Suspected small vessel ischemic change throughout the white matter. 4. Old lacunar infarct of the right basal ganglia. 5. Mild area of encephalomalacia at the left occipital lobe. Bud Cash MD Chest X-Ray 07/06/17 0541 Signed Impressions: Service Date/Time: Thursday, July 06, 2017 06:03 - CONCLUSION: Enlargement of the cardiac silhouette. Bud Cash MD Cervical Spine CT 07/06/17 0541 Signed Impressions: Service Date/Time: Thursday, July 06, 2017 05:37 - CONCLUSION: 1. No acute bony injury is seen. 2. Degenerative change. Bud Cash MD Chest X-Ray 07/06/17 0000 Signed Impressions: Service Date/Time: Thursday, July 06, 2017 12:04 - CONCLUSION: PICC line right atrium. Maik Yu MD FACR Brain MRI 07/06/17 0000 Signed Impressions: Service Date/Time: Thursday, July 06, 2017 12:47 - CONCLUSION: Subacute left partial MCA territory stroke. Bud Joseph MD Micro and Labs Laboratory Tests Test 07/06/17 18:50 07/07/17 02:10 07/07/17 04:20 07/07/17 09:05 Activated Partial Thromboplast Time 28.9 75.2 41.1 White Blood Count 20.0 Red Blood Count 5.60 Hemoglobin 16.2 Hematocrit 47.6 Mean Corpuscular Volume 85.0 Mean Corpuscular Hemoglobin 29.0 Mean Corpuscular Hemoglobin Concent 34.1 Red Cell Distribution Width 15.3 Platelet Count 217 Mean Platelet Volume 8.3 Neutrophils (%) (Auto) 86.6 Lymphocytes (%) (Auto) 8.2 Monocytes (%) (Auto) 4.8 Eosinophils (%) (Auto) 0.1 Basophils (%) (Auto) 0.3 Neutrophils # (Auto) 17.3 Lymphocytes # (Auto) 1.6 Monocytes # (Auto) 1.0 Eosinophils # (Auto) 0.0 Basophils # (Auto) 0.1 CBC Comment DIFF FINAL Differential Comment Blood Urea Nitrogen 32 Creatinine 1.30 Random Glucose 272 Total Protein 7.4 Albumin 3.6 Calcium Level 8.9 Phosphorus Level 3.3 Magnesium Level 1.0 Alkaline Phosphatase 73 Aspartate Amino Transf (AST/SGOT) 16 Alanine Aminotransferase (ALT/SGPT) 17 Total Bilirubin 0.8 Sodium Level 136 Potassium Level 3.9 Chloride Level 106 Carbon Dioxide Level 17.4 Anion Gap 13 Estimat Glomerular Filtration Rate 54 Lactic Acid Level 1.7 Triglycerides Level 66 Cholesterol Level 135 LDL Cholesterol 68 HDL Cholesterol 53.6 Cholesterol/HDL Ratio 2.51 Prothrombin Time 14.2 Prothromb Time International Ratio 1.3 Alyse Pressley MD Jul 07, 2017 15:57
[2017-07-07] MEDS: HEPARIN INJ 25,000 UNITS in SODIUM CHLOR 0.9% 250 ML INJ 247.5 ML IV PRN (16:51)
[2017-07-07 18:16] LABS: APTT (PATIENT) 69.5 SEC (24.3-30.1)
[2017-07-07 19:25] LABS: POTASSIUM 3.4 MEQ/L (3.5-5.1)
[2017-07-07 19:26] LABS: MAGNESIUM 1.4 MG/DL (1.5-2.5)
[2017-07-07] MEDS: PRAVASTATIN SOD 40 MG TAB PO SCH (20:38)
[2017-07-08] VITALS (11 sets, daily range): BP systolic 126–158; BP diastolic 52–71; PULSE 66–80; RESP 20–26; TEMP 97.6–98.7; O2SAT 90–96
[2017-07-08] MEDS: CHLORHEXIDINE GLUCONATE 2 % 1 PACK (2 CLOTHS) TOP SCH (04:00)
[2017-07-08 04:25] LABS: AUTOMATED NEUTROPHIL # 11.6 TH/MM3 (1.8-7.7); BASOPHIL # 0.1 TH/MM3 (0-0.2); BASOPHIL % 0.5 % (0.0-2.0); EOSINOPHIL # 0.2 TH/MM3 (0-0.4); EOSINOPHIL % 1.4 % (0.0-4.0); HEMATOCRIT 47.8 % (39.0-51.0); HEMO FLAGS DIFF FINAL; LYMPH % 11.2 % (9.0-44.0); LYMPHOCYTE # 1.7 TH/MM3 (1.0-4.8); MEAN CELL VOLUME 85.8 FL (80.0-100.0); MEAN CORPUSCULAR HEMOGLOBIN 28.6 PG (27.0-34.0); MEAN CORPUSCULAR HGB CONC 33.3 % (32.0-36.0); MONO % 8.8 % (0.0-8.0); NEUT % 78.1 % (16.0-70.0); PLATELET COUNT 187 TH/MM3 (150-450); RED BLOOD COUNT 5.57 MIL/MM3 (4.50-5.90); RED CELL DISTRIBUTION WIDTH 15.8 % (11.6-17.2); WHITE BLOOD COUNT 14.8 TH/MM3 (4.0-11.0)
[2017-07-08 04:49] LABS: ALKALINE PHOSPHATASE 67 U/L (45-117); ALT (GPT) 11 U/L (12-78); ANION GAP 10 MEQ/L (5-15); AST (GOT) 35 U/L (15-37); BICARBONATE 20.3 MEQ/L (21.0-32.0); BLOOD UREA NITROGEN 32 MG/DL (7-18); CHLORIDE 109 MEQ/L (98-107); GLOMERULAR FILTRATION RATE 60 ML/MIN (>89); MAGNESIUM 2.2 MG/DL (1.5-2.5); POTASSIUM 4.1 MEQ/L (3.5-5.1); SODIUM (NA) 139 MEQ/L (136-145); TOTAL BILIRUBIN ADULT 0.6 MG/DL (0.2-1.0)
[2017-07-08] MEDS: INSULIN NovoLIN REGULAR SUPPLEMENTAL SCALE SQ SCH ×5 (05:00→16:00)
[2017-07-08] MEDS ORDERED: DILTIAZEM INJ 125 MG in SODIUM CHLORIDE 0.9% INJ 100 ML IV PRN (06:00)
--- NOTE | 2017-07-08 06:40 | PD.CARD.PN ---
Subjective Subjective Remarks Improvement since yeaterday. Awake and alert. Moving all extremities. Follows commands. Cardizem drip reduced last night to 2.5 mg/hr by RN. On phenylephrine for BP support. Objective Medications Current Medications Medications (Trade) Dose Ordered Sig/Víctor Route Start Time Stop Time Status Last Admin Sodium Chloride 1,000 ml @ 70 mls/hr [id number] IV 07/06/17 06:45 Future Hold 07/06/17 10:30 (D50w (Vial) Inj) 50 ml UNSCH PRN IV PUSH 07/06/17 08:45 (Glucagon Inj) 1 mg UNSCH PRN OTHER 07/06/17 08:45 (NS Flush) 2 ml BID IV FLUSH 07/06/17 09:00 07/07/17 20:38 (NS Flush) 2 ml UNSCH PRN IV FLUSH 07/06/17 08:45 (Trandate Inj) 10 mg Q2H PRN IV PUSH 07/06/17 08:45 (Aspirin Supp) 300 mg DAILY RECTAL 07/06/17 10:00 07/07/17 09:57 (Pravachol) 40 mg HS PO 07/06/17 21:00 (Tylenol) 650 mg Q6H PRN PO 07/06/17 08:45 (Protonix Inj) 40 mg DAILY IV PUSH 07/06/17 10:00 07/07/17 09:36 (Tears Naturale Opth Soln) 1 drop TID EACH EYE 07/06/17 09:00 07/07/17 18:00 (Zofran Inj) 4 mg Q6H PRN IV PUSH 07/06/17 08:45 (Albuterol Neb) 2.5 mg Q2HR NEB PRN INH 07/06/17 08:45 Miscellaneous Information 1 Q361D XX 07/06/17 08:45 07/06/17 08:45 (Chlorhexidine 2% Cloth) 3 pack Taper DAILY@04 TOP 07/07/17 04:00 07/03/18 03:59 07/08/17 04:00 (Chlorhexidine 2% Cloth) 3 pack UNSCH PRN TOP 07/06/17 08:45 (Britney-Colace) 1 tab BID PO 07/06/17 10:00 (Milk Of Magnesia Liq) 30 ml Q12H PRN PO 07/06/17 08:45 (Senokot) 17.2 mg Q12H PRN PO 07/06/17 08:45 (Dulcolax Supp) 10 mg DAILY PRN RECTAL 07/06/17 08:45 (Lactulose Liq) 30 ml DAILY PRN PO 07/06/17 08:45 (NS Flush) See Protocol DAILY IV FLUSH 07/07/17 09:00 07/06/17 21:26 (NS Flush) See Protocol UNSCH PRN IV FLUSH 07/06/17 12:15 (Heparin Central Flush) See Protocol DAILY IV FLUSH 07/07/17 09:00 (Heparin Central Flush) See Protocol UNSCH PRN IV FLUSH 07/06/17 12:15 (NS Flush) UNSCH PRN IV FLUSH 07/06/17 12:15 (NS Flush) SEE PROTOCOL UNSCH PRN IV FLUSH 07/06/17 12:15 (NS Flush) 3 ml UNSCH PRN IV FLUSH 07/06/17 12:15 Norepinephrine Bitartrate 4 mg/ Sodium Chloride 250 ml @ 7.5 mls/hr TITRATE PRN IV 07/06/17 17:45 (Brethine Inj) 1 mg UNSCH PRN SQ 07/06/17 17:45 Phenylephrine HCl 160 mg/Sodium Chloride 500 ml @ 7.5 mls/hr TITRATE PRN IV 07/06/17 18:00 07/07/17 21:00 Heparin Sodium (Porcine) 06050 units/Sodium Chloride 250 ml @ 13 mls/hr TITRATE PRN IV 07/06/17 18:00 07/07/17 16:51 (NovoLIN R SUPPLEMENTAL SCALE) 1 Q4HR SQ 07/07/17 08:00 07/07/17 16:00 Potassium Chloride 100 ml @ 50 mls/hr Q2H PRN IV 07/07/17 08:15 Potassium Chloride 100 ml @ 50 mls/hr Q2H PRN IV 07/07/17 08:15 (K-Lyte Cl Eff) 50 meq UNSCH PRN PO 07/07/17 08:15 Potassium Chloride 100 ml @ 25 mls/hr UNSCH PRN IV 07/07/17 08:15 07/07/17 20:11 Potassium Chloride 100 ml @ 50 mls/hr Q2H PRN IV 07/07/17 08:15 Magnesium Sulfate 4 gm/Sodium Chloride 100 ml @ 50 mls/hr UNSCH PRN IV 07/07/17 08:15 (Mag-Ox) 800 mg UNSCH PRN PO 07/07/17 08:15 Magnesium Sulfate 2 gm/Sodium Chloride 100 ml @ 50 mls/hr UNSCH PRN IV 07/07/17 08:15 (K-Phos) 2,000 mg Q4H PRN PO 07/07/17 08:15 Sodium Phosphate 30 mmol/Sodium Chloride 250 ml @ 42 mls/hr UNSCH PRN IV 07/07/17 08:15 (K-Phos) 2,000 mg UNSCH PRN PO/TUBE 07/07/17 08:15 Potassium Phosphate 30 mmol/ Sodium Chloride 260 ml @ 42 mls/hr UNSCH PRN IV 07/07/17 08:15 (Lanoxin Inj) 0.25 mg DAILY@0800 IV PUSH 07/08/17 08:00 Diltiazem HCl 125 mg/Sodium Chloride 125 ml @ 10 mls/hr TITRATE PRN IV 07/08/17 06:00 Vital Signs / I&O Vital Signs Date Time Temp Pulse Resp B/P (MAP) Pulse Ox O2 Delivery O2 Flow Rate FiO2 07/08/17 00:00 98.7 66 24 154/56 (88) 94 07/07/17 23:00 64 07/07/17 21:00 91 07/07/17 20:42 73 07/07/17 20:00 Room Air 07/07/17 20:00 98.5 73 21 140/53 (82) 96 Automatic Cuff 07/07/17 20:00 73 07/07/17 20:00 73 07/07/17 11:20 86 144/62 07/07/17 10:00 86 07/07/17 09:41 92 159/79 07/07/17 09:03 94 21 07/07/17 08:00 100.2 114 34 133/78 (96) 95 07/07/17 08:00 114 07/07/17 07:00 96 Room Air I/O 07/07/17 07/07/17 07/07/17 07/08/17 07/08/17 07/08/17 07:00 15:00 23:00 07:00 15:00 23:00 Intake Total 561 ml 218 ml 200 ml 200 ml Output Total 1700 ml 1100 ml Balance -1139 ml 218 ml -900 ml 200 ml Intake Oral 0 ml 0 ml IV Total 561 ml 218 ml 200 ml 200 ml Output Urine Total 1700 ml 1100 ml # Bowel Movements 0 1 Physical Exam VSS, afebrile. VR controlled. No JVD Lungs: CTA Heart Irreg, S1, S2 Ext: No C/C/E Neuro eval per Dr. Pressley. Laboratory Laboratory Tests Test 07/07/17 09:05 07/07/17 16:00 07/07/17 18:35 07/08/17 03:44 Prothrombin Time 14.2 SEC Prothromb Time International Ratio 1.3 RATIO Activated Partial Thromboplast Time 41.1 SEC 69.5 SEC Potassium Level 3.4 MEQ/L 4.1 MEQ/L Magnesium Level 1.4 MG/DL 2.2 MG/DL White Blood Count 14.8 TH/MM3 Red Blood Count 5.57 MIL/MM3 Hemoglobin 15.9 GM/DL Hematocrit 47.8 % Mean Corpuscular Volume 85.8 FL Mean Corpuscular Hemoglobin 28.6 PG Mean Corpuscular Hemoglobin Concent 33.3 % Red Cell Distribution Width 15.8 % Platelet Count 187 TH/MM3 Mean Platelet Volume 8.0 FL Neutrophils (%) (Auto) 78.1 % Lymphocytes (%) (Auto) 11.2 % Monocytes (%) (Auto) 8.8 % Eosinophils (%) (Auto) 1.4 % Basophils (%) (Auto) 0.5 % Neutrophils # (Auto) 11.6 TH/MM3 Lymphocytes # (Auto) 1.7 TH/MM3 Monocytes # (Auto) 1.3 TH/MM3 Eosinophils # (Auto) 0.2 TH/MM3 Basophils # (Auto) 0.1 TH/MM3 CBC Comment DIFF FINAL Differential Comment Blood Urea Nitrogen 32 MG/DL Creatinine 1.18 MG/DL Random Glucose 192 MG/DL Total Protein 7.2 GM/DL Albumin 3.3 GM/DL Calcium Level 8.6 MG/DL Phosphorus Level 2.1 MG/DL Alkaline Phosphatase 67 U/L Aspartate Amino Transf (AST/SGOT) 35 U/L Alanine Aminotransferase (ALT/SGPT) 11 U/L Total Bilirubin 0.6 MG/DL Sodium Level 139 MEQ/L Chloride Level 109 MEQ/L Carbon Dioxide Level 20.3 MEQ/L Anion Gap 10 MEQ/L Estimat Glomerular Filtration Rate 60 ML/MIN Assessment and Plan Problem List: (1) Atrial fibrillation with rapid ventricular response ICD Codes: I48.91 - Unspecified atrial fibrillation Status: Chronic (2) Stroke ICD Codes: I63.9 - Stroke Status: Acute (3) Acute on chronic systolic (congestive) heart failure ICD Codes: I50.23 - Acute on chronic systolic (congestive) heart failure Status: Resolved (4) CAD (coronary artery disease) ICD Codes: I25.10 - Atherosclerotic heart disease of [place] coronary artery without angina pectoris Status: Acute (5) HTN (hypertension) ICD Codes: I10 - HTN (hypertension) Status: Acute (6) DM (diabetes mellitus) ICD Codes: E11.9 - DM (diabetes mellitus) Status: Acute (7) CKD (chronic kidney disease) ICD Codes: N18.9 - CKD (chronic kidney disease) Status: Acute Assessment and Plan Still NPO will need repeat swallowing test today. On IV Heparin. Will resume Eliquis 5mg PO BID when able. Continue IV Cardizem for VR control until able to take PO. Continue IV phenylephrine for BP support. Following with you. Prognosis remains guarded, Code Status Full Discussed Condition With Patient and staffing mgr. Problem Qualifiers (1) Stroke: Qualified Codes: I63.9 - Cerebral infarction, unspecified Alonso Sánchez MD Jul 08, 2017 06:39
[2017-07-08] MEDS ORDERED: DIGOXIN 0.5 MG/2 ML VIAL IV PUSH SCH (08:00)
[2017-07-08] MEDS: SODIUM CHLORIDE 0.9% FLUSH 10 ML FLUSH IV FLUSH SCH (08:53)
[2017-07-08] MEDS: SODIUM CHLORIDE 0.9% FLUSH 5 ML FLUSH IV FLUSH SCH ×2 (08:54→21:56)
[2017-07-08] MEDS: DOCUSATE SODIUM 50 MG/SENNA 8.6 MG TAB PO SCH ×2 (08:54→21:56)
[2017-07-08] MEDS: PANTOPRAZOLE SODIUM 40 MG VIAL IV PUSH SCH (08:54)
[2017-07-08] MEDS: ARTIFICIAL TEARS OPTH SOLN 15 ML BTL EACH EYE SCH ×3 (08:56→17:50)
[2017-07-08] MEDS: ASPIRIN 300 MG SUPP RECTAL SCH (09:20)
--- NOTE | 2017-07-08 09:40 | HHI.CCPN ---
Subjective Remarks/Hospital Course This is a 76-year-old male. Date of admission 07/06/2017. Past medical history includes history of right basal ganglia CVA, dementia disorder NOS, atrial fibrillation, chronic systolic heart failure, hypertension, disc edema, gastroesophageal disease with a history of a gastric ulcer status post appendectomy and clipping 2011, diabetes mellitus poorly controlled. Patient presented to [facility] initially as a level II trauma after being found at home and down for unknown duration of time. Neighbor's had not recently seen the patient and were concerned and called EMS. Patient had a large hematomas and was placed in a c-collar. Incomprehensible groaning sounds. Patient had generalized weakness according to records. NIH score is 23. GCS was 9 now around 11 [id number] as he is currently talking, comprehensibly and spontaneously moving his left upper extremity and left lower extremity CT brain revealed old right basal ganglia CVA in the left occipital encephalomalacia. Patient was in A. fib with RVR with heart rate in the 120s. BMP revealed currently 1.8. Leukocytosis 12.2. Patient received 2 g of cefazolin and DTP 0.5 mg IM 1 Cardiology/ seen the patient. Patient recommended Lopressor 5 mm IV 1 for rate control. Currently on a diltiazem drip to maintain heart rate less than 100. Patient's source of stroke likely embolic. Echocardiogram has been ordered. Last EF 20% with moderate MR/TR and pulmonary pressure 54 mmHg. Patient will likely be a possible candidate for left atrial appendage closure device in 3-4 months if tolerates according to business intelligence manager Dr. 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 CT brain revealed old right basal CVA and cephalization the left occipital lobe. Not a candidate for alteplase secondary to unknown duration of time and apixaban use. CTA head and neck revealed left H[employer]IST stenosis. Generalized plaque in the carotid/carotid bulb the vertebral artery regions otherwise not flow-limiting. He will seeing consultation. MRI of the brain pending. 07/07: Worsening right facial droop/right upper and lower extremity weakness. Patient is more awake and interactive attempting to vocalize. Currently on phenylephrine drip at 20 mics grams from to maintain systolic pressure greater than 180. Cardizem drip added for rate control Subjective 07/08: Afebrile. Improved motion and strength in right upper extremity currently 3/4 over 5. Strength almost equal bilateral lower extremity's. Currently in room air. Heart rate better controlled on diltiazem drip at 5 mg an hour. Continues on phenylephrine drip @ 150 mcg per minute Objective Vital Signs Date Time Temp Pulse Resp B/P (MAP) Pulse Ox O2 Delivery O2 Flow Rate FiO2 07/08/17 08:12 96 21 07/08/17 08:00 73 07/08/17 07:10 Room Air 07/08/17 04:00 97.6 26 158/62 (94) 07/06/17 06:02 2.00 Intake and Output 07/08/17 07/08/17 07/09/17 08:00 16:00 00:00 Intake Total 200 ml Output Total 500 ml Balance -300 ml Result Diagram: 07/08/17 0344 07/08/17 0344 Imaging Last Impressions Neck CTA 07/06/17600 Signed Impressions: Service Date/Time: Thursday, July 06, 2017 06:10 - CONCLUSION: Scattered plaque at the origin the great vessels, the carotid bulb regions, and proximal internal carotid arteries bilaterally without a significant stenosis seen. Bud Cash MD Head CTA 07/06/17600 Signed Impressions: Service Date/Time: Thursday, July 06, 2017 06:10 - CONCLUSION: Focal stenosis at the proximal left posterior cerebral artery. The distal flow appears normal throughout. Bud Cash MD Head CT 07/06/17 0541 Signed Impressions: Service Date/Time: Thursday, July 06, 2017 05:36 - CONCLUSION: 1. No acute abnormality is seen. 2. Atrophy. 3. Suspected small vessel ischemic change throughout the white matter. 4. Old lacunar infarct of the right basal ganglia. 5. Mild area of encephalomalacia at the left occipital lobe. Bud Cash MD Chest X-Ray 07/06/1741 Signed Impressions: Service Date/Time: Thursday, July 06, 2017 06:03 - CONCLUSION: Enlargement of the cardiac silhouette. Bud Cash MD Cervical Spine CT 07/06/1741 Signed Impressions: Service Date/Time: Thursday, July 06, 2017 05:37 - CONCLUSION: 1. No acute bony injury is seen. 2. Degenerative change. Bud Cash MD Brain MRI 07/06/17 0000 Signed Impressions: Service Date/Time: Thursday, July 06, 2017 12:47 - CONCLUSION: Subacute left partial MCA territory stroke. Bud Joseph MD Objective Remarks GENERAL: 76-year-old male, resting in bed in no acute distress on room air SKIN: Warm and dry. Hematoma without current active bleeding HEAD: Normocephalic. EYES: Pupils equal and round around 3 mm bilaterally and reactive. No scleral icterus. No injection or drainage. ENT: No nasal bleeding or discharge. Mucous membranes pink and moist. NECK: Trachea midline. No JVD. CARDIOVASCULAR: Tachycardia, IR. S1, S2. No S4. 1/6 systolic murmur RESPIRATORY: Clear to auscultation. Breath sounds equal bilaterally. GASTROINTESTINAL: Abdomen soft, non-tender, nondistended. Hypoactive bowel sounds are appreciated MUSCULOSKELETAL: Extremities without edema. No obvious deformities. NEUROLOGICAL: Awake and alert. Right facial droop somewhat improved. Strength 5 out of 5 left upper extremity. 5 out of 5 left lower extremity. 3 out of 5 right upper 5 out of 5 lower extremity. Improved sensation to light touch and pinprick bilaterally. DTRs 1+ bilateral upper and lower extremities including brachial, patellar and Achilles. Pronator drift right upper extremity. Gait was not assessed. Date of Insertion: Jul 06, 2017 Line: PICC Side: Left Location: Antecubital A/P Assessment and Plan Neuro/Psych: CVA History of right basal ganglia CVA Dementia disorder NOS CT brain 07/06 revealed old right basal ganglia CVA. Encephalization left occipital lobe CTA brain - focal left H[employer]IST stenosis. CTA neck - generalized plaquing with no flow-limiting stenosis noted Dr. Pressley - neurology - not a candidate for alteplase secondary to unknown duration of time down and currently on Apixaban Continue aspirin will give 300 mg per rectum daily if unable to take by mouth Goal blood pressure control to 140/80 Head of bed at 30 MRI brain 07/06 subacute left parietal CVA and MCA distribution? 2-D echocardiogram completed 06/29. Results pending PT/OT/ST evaluate and treat CV: Atrial fibrillation with rapid ventricular response Chronic systolic heart failure ejection fraction 20% Coronary artery disease status post stent [address] Ohara - cardiology following. Currently on diltiazem drip for rate control at 5 mg an hour 2-D echocardiogram 05/26 - EF 20%. LV dilatation. Moderate MR/TR. PAP 54 mmHg Home medications include carvedilol 6.25 mg twice a day, ramipril 1.25 mg twice a day and Aldactone 25 mg daily -Patient is on rosuvastatin 20 mg by mouth daily for dyslipidemia. Along with fenofibrate 145 mg daily EKG revealed A. fib with RVR. No ischemic changes. Per cardiology patient's heart is usually elevated 2-D echocardiogram per CVA protocol ordered with results any. Bubble study performed Currently on phenylephrine drip at 150 per minute for systolic blood pressure goals as above Resp: Prior tobaccoism Nasal cannula to maintain saturations greater than equal to 92% Incentive spirometry while awake Follow-up on chest x-ray Strict aspiration precautions GI: Gastroesophageal reflux disease History of upper GI bleed - gastric ulcer status post clipping 2011 Patient is currently nothing by mouth. Speech evaluate and treat today. Unable to Swallow Pl., Dobbhoff tube Pantoprazole for GI prophylaxis. Patient is on omeprazole 20 mg by mouth daily for gastroesophageal reflux disease Docusate sodium/senna 1 tablet twice a day for bowel regimen : Ackerman catheter if indicated for accurate I's and O's in a critically ill patient Endo: Diabetes mellitus Euglycemia Home medications include metformin 500 mg daily, glimepiride 4 mg twice a day and linagliptin 18 mg/3 milliliters 0.6 mg subcutaneous daily Currently on sliding scale with Accu-Cheks every 4 hours to maintain euglycemia/ high regimen Novulin R Renal: Chronic kidney disease stage IIIa Creatinine around baseline currently 1.8. Currently 1.1 Monitor urine output Accurate I's and O's Avoid nephrotoxic medication Heme: Chronic Apixaban use Monitor CBC daily. Follow trends. Coags within normal limits Does not meet transfusion thresholds at this time Currently in heparin drip for anticoagulation due to nothing by mouth status ID: Monitor for infection Status post tetanus injection of 50 mg IM 1 and cefazolin 2 g IV 1 for hematoma MSK: PT/OT evaluate and treat FEN: Hypophosphatemia 15 mmol sodium fast IV 1. Recheck in a.m. Replace electrolytes as clinically indicated Access -Left PICC line day #3 placed 07/06 - Right femoral arterial line day 2 placed 07/07 Prophylaxis - GI - pantoprazole - DVT - SCDs/holding oral pharmacological prophylaxis assess swallow evaluation. Apixaban versus heparin drip Level III follow-up Renato Taylor MD Jul 08, 2017 09:39
[2017-07-08] MEDS: SODIUM PHOSPHATE INJ 30 MMOL in SODIUM CHLOR 0.9% 250 ML INJ 240 ML IV PRN ×3 (10:01→17:06)
[2017-07-08] MEDS ORDERED: SODIUM PHOSPHATE INJ 15 MMOL in SODIUM CHLORIDE 0.9% INJ 150 ML IV ONE (11:00)
[2017-07-08 12:54] LABS: APTT (PATIENT) 33.6 SEC (24.3-30.1)
--- NOTE | 2017-07-08 13:04 | ECHRPT ---
Indication: CVA/TIA CONCLUSIONS The left ventricular systolic function is severely reduced with an estimated ejection fraction of 20 %. Mildly dilated left ventricle. Global hypokinesis. Upper normal wall thickness. A patent foramen ovale is present with a bidirectional shunt demonstrated by color flow Doppler interrogation, though no atrial level shunt is observed with agitated saline contrast administration . Mild mitral valve regurgitation. Trace aortic valve regurgitation. A prominent eustachian valve is observed in the right atrium (benign finding). Mild bi-atrial enlargement.There is mild to moderate tricuspid regurgitation. The estimated pulmonary arterial pressure is 70 mmHg. BP: 131 / 65 HR: 103 Rhythm: Other MEASUREMENTS (Male / Female) Normal Values Technical Quality:Good 2D ECHO LV Diastolic Diameter PLAX 5.1 cm 4.2 - 5.9 / 3.9 - 5.3 cm LV Systolic Diameter PLAX 4.7 cm IVS Diastolic Thickness 1.3 cm 0.6 - 1.0 / 0.6 - 0.9 cm LVPW Diastolic Thickness 1.3 cm 0.6 - 1.0 / 0.6 - 0.9 cm LV Relative Wall Thickness 0.5 RV Internal Dim ED PLAX 2.6 cm LVOT Diameter 1.9 cm M-MODE Aortic Root Diameter MM 2.1 cm LA Systolic Diameter MM 4.6 cm LA Ao Ratio MM 2.2 AV Cusp Separation MM 1.7 cm DOPPLER AV Peak Velocity 125.0 cm/s AV Peak Gradient 6.3 mmHg AI Peak Velocity 345.0 cm/s AI Peak Gradient 47.6 mmHg AI Pressure Half Time 958.0 ms LVOT Peak Velocity 85.9 cm/s LVOT Peak Gradient 3.0 mmHg AV Area Cont Eq pk 1.9 cm MR Peak Velocity 500.0 cm/s MR Peak Gradient 100.0 mmHg TR Peak Velocity 386.0 cm/s TR Peak Gradient 59.6 mmHg Right Atrial Pressure 10.0 mmHg Pulmonary Artery Systolic Pressu 69.6 mmHg Right Ventricular Systolic Press 69.6 mmHg PV Peak Velocity 95.5 cm/s PV Peak Gradient 3.6 mmHg FINDINGS LEFT VENTRICLE The left ventricular systolic function is severely reduced with an estimated ejection fraction of 20 %. Mildly dilated left ventricle. Global hypokinesis. Upper normal wall thickness. RIGHT VENTRICLE Normal right ventricular size and systolic function. LEFT ATRIUM The left atrial size is mildly dilated. RIGHT ATRIUM The right atrial size is mildly dilated. A prominent eustachian valve is observed in the right atrium (benign finding). ATRIAL SEPTUM No atrial level shunt is observed with agitated saline contrast administration. A patent foramen ovale is present with a bidirectional shunt demonstrated by color flow Doppler interrogation. AORTA The aortic root and proximal ascending aorta are normal in size on limited imaging. MITRAL VALVE Mild mitral valve regurgitation. AORTIC VALVE Trace aortic valve regurgitation. TRICUSPID VALVE There is mild to moderate tricuspid regurgitation. The estimated pulmonary arterial pressure is 70 mmHg. PULMONARY VALVE The pulmonary valve is not well visualized. VESSELS The inferior vena cava is normal in size. PERICARDIUM No pericardial effusion. Oswaldo Rocha MD (Electronically Signed) Final Date:08 July 2017 13:02
[2017-07-08] MEDS: HEPARIN INJ 25,000 UNITS in SODIUM CHLOR 0.9% 250 ML INJ 247.5 ML IV PRN (17:48)
--- NOTE | 2017-07-08 17:58 | HHI.PR ---
Review/Management Diagnosis 1. Acute / subacute ischemic stroke. 2. History of remote right basal ganglia stroke and left occipital lobe encephalomalacia. 3. History of dementia. 4. The patient was not a candidate for IV TPA due to unknown last time seen normal and currently on apixaban. 5. Atrial fibrillation with RVR. 6. Cardiomyopathy. 7. Coronary artery disease status post stenting. 8. Hyperlipidemia. 9. Hypertension. 10. Diabetes mellitus. 11. Chronic kidney disease. Plan - Neurological checks q. one hourly. - Elevate head of bed - Goal BP is 140-145/75-80 - Continue Eliquis at current home dose. - DVT prophylaxis. - Speech therapy recommendations are appreciated. - The patient will need inpatient rehab. - I personally reviewed the MRI of the brain that revealed extensive white matter ischemic changes at both the cortical and subcortical regions with extensive cortical atrophy particularly in the bilateral frontal and parietal region. - Discussed case with RN, and daughter at bed side - Continue supportive medical therapy - Remove Foleys catheter and place condom - PT/OT, recommendations are appreciated Diagnosis/Plan: Subjective Subjective Comments Patient is more awake and alert Passed swallow tests Sits up in bed, daughter at bed side Improved movement of the right side Foleys catheter in place Active Medications Current Medications Medications (Trade) Dose Ordered Sig/Víctor Route Start Time Stop Time Status Last Admin Sodium Chloride 1,000 ml @ 70 mls/hr [id number] IV 07/06/17 06:45 Future Hold 07/06/17 10:30 (D50w (Vial) Inj) 50 ml UNSCH PRN IV PUSH 07/06/17 08:45 (Glucagon Inj) 1 mg UNSCH PRN OTHER 07/06/17 08:45 (NS Flush) 2 ml BID IV FLUSH 07/06/17 09:00 07/07/17 20:38 (NS Flush) 2 ml UNSCH PRN IV FLUSH 07/06/17 08:45 (Trandate Inj) 10 mg Q2H PRN IV PUSH 07/06/17 08:45 (Aspirin Supp) 300 mg DAILY RECTAL 07/06/17 10:00 07/08/17 09:20 (Pravachol) 40 mg HS PO 07/06/17 21:00 (Tylenol) 650 mg Q6H PRN PO 07/06/17 08:45 07/08/17 16:58 (Protonix Inj) 40 mg DAILY IV PUSH 07/06/17 10:00 07/08/17 08:54 (Tears Naturale Opth Soln) 1 drop TID EACH EYE 07/06/17 09:00 07/08/17 17:50 (Zofran Inj) 4 mg Q6H PRN IV PUSH 07/06/17 08:45 (Albuterol Neb) 2.5 mg Q2HR NEB PRN INH 07/06/17 08:45 Miscellaneous Information 1 Q361D XX 07/06/17 08:45 07/06/17 08:45 (Chlorhexidine 2% Cloth) 3 pack Taper DAILY@04 TOP 07/07/17 04:00 07/03/18 03:59 07/08/17 04:00 (Chlorhexidine 2% Cloth) 3 pack UNSCH PRN TOP 07/06/17 08:45 (Britney-Colace) 1 tab BID PO 07/06/17 10:00 (Milk Of Magnesia Liq) 30 ml Q12H PRN PO 07/06/17 08:45 (Senokot) 17.2 mg Q12H PRN PO 07/06/17 08:45 (Dulcolax Supp) 10 mg DAILY PRN RECTAL 07/06/17 08:45 (Lactulose Liq) 30 ml DAILY PRN PO 07/06/17 08:45 (NS Flush) See Protocol DAILY IV FLUSH 07/07/17 09:00 07/06/17 21:26 (NS Flush) See Protocol UNSCH PRN IV FLUSH 07/06/17 12:15 (Heparin Central Flush) See Protocol DAILY IV FLUSH 07/07/17 09:00 (Heparin Central Flush) See Protocol UNSCH PRN IV FLUSH 07/06/17 12:15 (NS Flush) UNSCH PRN IV FLUSH 07/06/17 12:15 (NS Flush) SEE PROTOCOL UNSCH PRN IV FLUSH 07/06/17 12:15 (NS Flush) 3 ml UNSCH PRN IV FLUSH 07/06/17 12:15 Norepinephrine Bitartrate 4 mg/ Sodium Chloride 250 ml @ 7.5 mls/hr TITRATE PRN IV 07/06/17 17:45 (Brethine Inj) 1 mg UNSCH PRN SQ 07/06/17 17:45 Phenylephrine HCl 160 mg/Sodium Chloride 500 ml @ 7.5 mls/hr TITRATE PRN IV 07/06/17 18:00 07/07/17 21:00 Heparin Sodium (Porcine) 03751 units/Sodium Chloride 250 ml @ 13 mls/hr TITRATE PRN IV 07/06/17 18:00 07/08/17 17:48 (NovoLIN R SUPPLEMENTAL SCALE) 1 Q4HR SQ 07/07/17 08:00 07/08/17 12:39 Potassium Chloride 100 ml @ 50 mls/hr Q2H PRN IV 07/07/17 08:15 Potassium Chloride 100 ml @ 50 mls/hr Q2H PRN IV 07/07/17 08:15 (K-Lyte Cl Eff) 50 meq UNSCH PRN PO 07/07/17 08:15 Potassium Chloride 100 ml @ 25 mls/hr UNSCH PRN IV 07/07/17 08:15 07/07/17 20:11 Potassium Chloride 100 ml @ 50 mls/hr Q2H PRN IV 07/07/17 08:15 Magnesium Sulfate 4 gm/Sodium Chloride 100 ml @ 50 mls/hr UNSCH PRN IV 07/07/17 08:15 (Mag-Ox) 800 mg UNSCH PRN PO 07/07/17 08:15 Magnesium Sulfate 2 gm/Sodium Chloride 100 ml @ 50 mls/hr UNSCH PRN IV 07/07/17 08:15 (K-Phos) 2,000 mg Q4H PRN PO 07/07/17 08:15 Sodium Phosphate 30 mmol/Sodium Chloride 250 ml @ 42 mls/hr UNSCH PRN IV 07/07/17 08:15 07/08/17 17:06 (K-Phos) 2,000 mg UNSCH PRN PO/TUBE 07/07/17 08:15 Potassium Phosphate 30 mmol/ Sodium Chloride 260 ml @ 42 mls/hr UNSCH PRN IV 07/07/17 08:15 Diltiazem HCl 125 mg/Sodium Chloride 125 ml @ 10 mls/hr TITRATE PRN IV 07/08/17 06:00 Allergies Allergies Coded Allergies allopurinol (Verified Allergy, Unknown, 06/29/17) hydrochlorothiazide (Verified Allergy, Unknown, 06/29/17) penicillin G (Unverified Allergy, Unknown, 06/29/17) acetaminophen (Unverified Adverse Reaction, Intermediate, VOMITING, 06/29/17) propoxyphene (Unverified Adverse Reaction, Intermediate, VOMITING, 06/29/17) Uncoded Allergies potassium citrate ( Allergy, Unknown, 06/29/17) Review of Systems All other ROS: ROS reviewed as documented in chart Exam I&O / VS 07/08/17 07/08/17 07/09/17 15:00 23:00 07:00 Intake Total 250 ml 500 ml Balance 250 ml 500 ml IV Total 250 ml 500 ml Vital Signs Date Time Temp Pulse Resp B/P (MAP) Pulse Ox O2 Delivery O2 Flow Rate FiO2 07/08/17 16:00 98.4 71 20 126/52 (76) 93 07/08/17 15:00 71 07/08/17 14:00 80 07/08/17 12:00 98.3 78 22 149/71 (97) 93 07/08/17 08:12 96 21 07/08/17 08:00 98.1 69 22 146/70 (95) 93 07/08/17 08:00 73 07/08/17 07:10 97 Room Air 07/08/17 04:00 97.6 73 26 158/62 (94) 92 07/08/17 00:00 98.7 66 24 154/56 (88) 94 07/07/17 23:00 64 07/07/17 21:00 91 07/07/17 20:42 73 07/07/17 20:00 Room Air 07/07/17 20:00 98.5 73 21 140/53 (82) 96 Automatic Cuff 07/07/17 20:00 73 07/07/17 20:00 73 Exam Comments GENERAL: Awake, alert, daughter at bed side. HEENT: Atraumatic, normocephalic. No jaundice. NECK: Trachea in the midline. No signs of meningeal irritation. CARDIOVASCULAR: Irregularly irregular heart rate. Systolic murmur. LUNGS: Clear to auscultation. No wheezes. GASTROINTESTINAL: Soft abdomen, nontender. MUSCULOSKELETAL: No edema, cyanosis or deformities. NEUROLOGIC: Awake, alert.oriented to person, place and time, mild expressive dysphasia, intact naming, comprehension ansd reading, slurred speech, less pronounced right facial palsy, moves right side , pyramidal weakness of right UE &LE in the right side, UE weaker than LE, 4+/5 right shoulder abd, elbow and wrist extension, 5-/5 right hip flexion, otherwise 5/5 throughout, right plantar is upgoing/Babinski sign, left plantar is downgoing Objective Radiology Results Last 72 hours Impressions Neck CTA 07/06/17600 Signed Impressions: Service Date/Time: Thursday, July 06, 2017 06:10 - CONCLUSION: Scattered plaque at the origin the great vessels, the carotid bulb regions, and proximal internal carotid arteries bilaterally without a significant stenosis seen. Bud Cash MD Head CTA 07/06/17600 Signed Impressions: Service Date/Time: Thursday, July 06, 2017 06:10 - CONCLUSION: Focal stenosis at the proximal left posterior cerebral artery. The distal flow appears normal throughout. Bud Cash MD Head CT 07/06/17540 Signed Impressions: Service Date/Time: Thursday, July 06, 2017 05:36 - CONCLUSION: 1. No acute abnormality is seen. 2. Atrophy. 3. Suspected small vessel ischemic change throughout the white matter. 4. Old lacunar infarct of the right basal ganglia. 5. Mild area of encephalomalacia at the left occipital lobe. Bud Cash MD Chest X-Ray 07/06/17540 Signed Impressions: Service Date/Time: Thursday, July 06, 2017 06:03 - CONCLUSION: Enlargement of the cardiac silhouette. Bud Cash MD Cervical Spine CT 07/06/17540 Signed Impressions: Service Date/Time: Thursday, July 06, 2017 05:37 - CONCLUSION: 1. No acute bony injury is seen. 2. Degenerative change. Bud Cash MD Chest X-Ray 07/06/17 0000 Signed Impressions: Service Date/Time: Thursday, July 06, 2017 12:04 - CONCLUSION: PICC line right atrium. Maik Yu MD FACR Brain MRI 07/06/17 0000 Signed Impressions: Service Date/Time: Thursday, July 06, 2017 12:47 - CONCLUSION: Subacute left partial MCA territory stroke. Bud Joseph MD Micro and Labs Laboratory Tests Test 07/07/17 18:35 07/08/17 03:44 07/08/17 08:05 07/08/17 12:35 Potassium Level 3.4 4.1 Magnesium Level 1.4 2.2 White Blood Count 14.8 Red Blood Count 5.57 Hemoglobin 15.9 Hematocrit 47.8 Mean Corpuscular Volume 85.8 Mean Corpuscular Hemoglobin 28.6 Mean Corpuscular Hemoglobin Concent 33.3 Red Cell Distribution Width 15.8 Platelet Count 187 Mean Platelet Volume 8.0 Neutrophils (%) (Auto) 78.1 Lymphocytes (%) (Auto) 11.2 Monocytes (%) (Auto) 8.8 Eosinophils (%) (Auto) 1.4 Basophils (%) (Auto) 0.5 Neutrophils # (Auto) 11.6 Lymphocytes # (Auto) 1.7 Monocytes # (Auto) 1.3 Eosinophils # (Auto) 0.2 Basophils # (Auto) 0.1 CBC Comment DIFF FINAL Differential Comment Blood Urea Nitrogen 32 Creatinine 1.18 Random Glucose 192 Total Protein 7.2 Albumin 3.3 Calcium Level 8.6 Phosphorus Level 2.1 Alkaline Phosphatase 67 Aspartate Amino Transf (AST/SGOT) 35 Alanine Aminotransferase (ALT/SGPT) 11 Total Bilirubin 0.6 Sodium Level 139 Chloride Level 109 Carbon Dioxide Level 20.3 Anion Gap 10 Estimat Glomerular Filtration Rate 60 Activated Partial Thromboplast Time 141.0 33.6 Test 07/08/17 17:35 Alyse Pressley MD Jul 08, 2017 17:58
[2017-07-08 18:10] LABS: APTT (PATIENT) 61.4 SEC (24.3-30.1)
[2017-07-08] MEDS ORDERED: DILTIAZEM HCL 60 MG TAB PO ONE (20:15)
[2017-07-08] MEDS ORDERED: CARVEDILOL 6.25 MG TAB PO ONE (20:15)
[2017-07-08] MEDS ORDERED: APIXABAN 5 MG TABLET PO ONE (20:45)
[2017-07-08] MEDS ORDERED: RAMIPRIL 2.5 MG CAP PO SCH (21:00)
[2017-07-08] MEDS: PRAVASTATIN SOD 40 MG TAB PO SCH (21:56)
[2017-07-08 22:39] LABS: APTT (PATIENT) 111.1 SEC (24.3-30.1)
[2017-07-09] VITALS (11 sets, daily range): BP systolic 104–160; BP diastolic 54–97; PULSE 57–88; RESP 20–38; TEMP 96.9–99.2; O2SAT 94–98
[2017-07-09 03:58] LABS: AUTOMATED NEUTROPHIL # 7.1 TH/MM3 (1.8-7.7); BASOPHIL % 0.3 % (0.0-2.0); EOSINOPHIL # 0.9 TH/MM3 (0-0.4); EOSINOPHIL % 8.5 % (0.0-4.0); HEMATOCRIT 39.4 % (39.0-51.0); HEMO FLAGS DIFF FINAL; LYMPH % 14.9 % (9.0-44.0); LYMPHOCYTE # 1.6 TH/MM3 (1.0-4.8); MEAN CELL VOLUME 84.9 FL (80.0-100.0); MEAN CORPUSCULAR HEMOGLOBIN 28.3 PG (27.0-34.0); MEAN CORPUSCULAR HGB CONC 33.4 % (32.0-36.0); MONO % 10.2 % (0.0-8.0); NEUT % 66.1 % (16.0-70.0); PLATELET COUNT 169 TH/MM3 (150-450); RED BLOOD COUNT 4.64 MIL/MM3 (4.50-5.90); RED CELL DISTRIBUTION WIDTH 15.6 % (11.6-17.2); WHITE BLOOD COUNT 10.7 TH/MM3 (4.0-11.0)
[2017-07-09] MEDS: INSULIN NovoLIN REGULAR SUPPLEMENTAL SCALE SQ SCH ×5 (04:00→21:28)
[2017-07-09 04:47] LABS: BICARBONATE 21.6 MEQ/L (21.0-32.0); MAGNESIUM 1.6 MG/DL (1.5-2.5); POTASSIUM 3.7 MEQ/L (3.5-5.1)
--- NOTE | 2017-07-09 05:09 | PD.CARD.PN ---
Subjective Subjective Remarks Continue to improve slowly. Able to speak a few words. Awake and alert. Able to take PO. Moving all extremities. Follows commands. Objective Medications Current Medications Medications (Trade) Dose Ordered Sig/Víctor Route Start Time Stop Time Status Last Admin Sodium Chloride 1,000 ml @ 70 mls/hr [id number] IV 07/06/17 06:45 Future Hold 07/06/17 10:30 (D50w (Vial) Inj) 50 ml UNSCH PRN IV PUSH 07/06/17 08:45 (Glucagon Inj) 1 mg UNSCH PRN OTHER 07/06/17 08:45 (NS Flush) 2 ml BID IV FLUSH 07/06/17 09:00 07/08/17 21:56 (NS Flush) 2 ml UNSCH PRN IV FLUSH 07/06/17 08:45 (Trandate Inj) 10 mg Q2H PRN IV PUSH 07/06/17 08:45 (Pravachol) 40 mg HS PO 07/06/17 21:00 07/08/17 21:56 (Tylenol) 650 mg Q6H PRN PO 07/06/17 08:45 07/08/17 16:58 (Protonix Inj) 40 mg DAILY IV PUSH 07/06/17 10:00 07/08/17 08:54 (Tears Naturale Opth Soln) 1 drop TID EACH EYE 07/06/17 09:00 07/08/17 17:50 (Zofran Inj) 4 mg Q6H PRN IV PUSH 07/06/17 08:45 (Albuterol Neb) 2.5 mg Q2HR NEB PRN INH 07/06/17 08:45 Miscellaneous Information 1 Q361D XX 07/06/17 08:45 07/06/17 08:45 (Chlorhexidine 2% Cloth) 3 pack Taper DAILY@04 TOP 07/07/17 04:00 07/03/18 03:59 07/08/17 04:00 (Chlorhexidine 2% Cloth) 3 pack UNSCH PRN TOP 07/06/17 08:45 (Britney-Colace) 1 tab BID PO 07/06/17 10:00 07/08/17 21:56 (Milk Of Magnesia Liq) 30 ml Q12H PRN PO 07/06/17 08:45 (Senokot) 17.2 mg Q12H PRN PO 07/06/17 08:45 (Dulcolax Supp) 10 mg DAILY PRN RECTAL 07/06/17 08:45 (Lactulose Liq) 30 ml DAILY PRN PO 07/06/17 08:45 (NS Flush) See Protocol DAILY IV FLUSH 07/07/17 09:00 07/06/17 21:26 (NS Flush) See Protocol UNSCH PRN IV FLUSH 07/06/17 12:15 (Heparin Central Flush) See Protocol DAILY IV FLUSH 07/07/17 09:00 (Heparin Central Flush) See Protocol UNSCH PRN IV FLUSH 07/06/17 12:15 (NS Flush) UNSCH PRN IV FLUSH 07/06/17 12:15 (NS Flush) SEE PROTOCOL UNSCH PRN IV FLUSH 07/06/17 12:15 (NS Flush) 3 ml UNSCH PRN IV FLUSH 07/06/17 12:15 (NovoLIN R SUPPLEMENTAL SCALE) 1 Q4HR SQ 07/07/17 08:00 07/07/17 22:00 Potassium Chloride 100 ml @ 50 mls/hr Q2H PRN IV 07/07/17 08:15 Potassium Chloride 100 ml @ 50 mls/hr Q2H PRN IV 07/07/17 08:15 (K-Lyte Cl Eff) 50 meq UNSCH PRN PO 07/07/17 08:15 Potassium Chloride 100 ml @ 25 mls/hr UNSCH PRN IV 07/07/17 08:15 07/07/17 20:11 Potassium Chloride 100 ml @ 50 mls/hr Q2H PRN IV 07/07/17 08:15 Magnesium Sulfate 4 gm/Sodium Chloride 100 ml @ 50 mls/hr UNSCH PRN IV 07/07/17 08:15 (Mag-Ox) 800 mg UNSCH PRN PO 07/07/17 08:15 Magnesium Sulfate 2 gm/Sodium Chloride 100 ml @ 50 mls/hr UNSCH PRN IV 07/07/17 08:15 (K-Phos) 2,000 mg Q4H PRN PO 07/07/17 08:15 Sodium Phosphate 30 mmol/Sodium Chloride 250 ml @ 42 mls/hr UNSCH PRN IV 07/07/17 08:15 07/08/17 17:06 (K-Phos) 2,000 mg UNSCH PRN PO/TUBE 07/07/17 08:15 Potassium Phosphate 30 mmol/ Sodium Chloride 260 ml @ 42 mls/hr UNSCH PRN IV 07/07/17 08:15 (Coreg) 6.25 mg Q12HR PO 07/09/17 09:00 (Cardizem Cd) 180 mg DAILY PO 07/09/17 09:00 (Eliquis) 5 mg BID PO 07/09/17 09:00 (Aldactone) 25 mg DAILY PO 07/09/17 09:00 (Altace) 2.5 mg BID PO 07/09/17 09:00 Vital Signs / I&O Vital Signs Date Time Temp Pulse Resp B/P (MAP) Pulse Ox O2 Delivery O2 Flow Rate FiO2 07/08/17 19:50 94 21 07/08/17 16:00 98.4 71 20 126/52 (76) 93 07/08/17 15:00 71 07/08/17 14:00 80 07/08/17 12:00 98.3 78 22 149/71 (97) 93 07/08/17 08:12 96 21 07/08/17 08:00 98.1 69 22 146/70 (95) 93 07/08/17 08:00 73 07/08/17 07:10 97 Room Air I/O 07/08/17 07/08/17 07/08/17 07/09/17 07/09/17 07/09/17 07:00 15:00 23:00 07:00 15:00 23:00 Intake Total 200 ml 250 ml 740 ml Output Total 500 ml 350 ml Balance -300 ml 250 ml 390 ml Intake Oral 0 ml 240 ml IV Total 200 ml 250 ml 500 ml Output Urine Total 500 ml 350 ml # Bowel Movements 0 0 Physical Exam VSS, afebrile. VR controlled. No JVD Lungs: CTA Heart Irreg, S1, S2 Ext: No C/C/E Neuro eval per Dr. Pressley. Laboratory Laboratory Tests Test 07/08/17 08:05 07/08/17 12:35 07/08/17 17:35 07/08/17 21:15 Activated Partial Thromboplast Time 141.0 SEC 33.6 SEC 61.4 SEC 111.1 SEC Test 07/09/17 03:50 White Blood Count 10.7 TH/MM3 Red Blood Count 4.64 MIL/MM3 Hemoglobin 13.1 GM/DL Hematocrit 39.4 % Mean Corpuscular Volume 84.9 FL Mean Corpuscular Hemoglobin 28.3 PG Mean Corpuscular Hemoglobin Concent 33.4 % Red Cell Distribution Width 15.6 % Platelet Count 169 TH/MM3 Mean Platelet Volume 7.5 FL Neutrophils (%) (Auto) 66.1 % Lymphocytes (%) (Auto) 14.9 % Monocytes (%) (Auto) 10.2 % Eosinophils (%) (Auto) 8.5 % Basophils (%) (Auto) 0.3 % Neutrophils # (Auto) 7.1 TH/MM3 Lymphocytes # (Auto) 1.6 TH/MM3 Monocytes # (Auto) 1.1 TH/MM3 Eosinophils # (Auto) 0.9 TH/MM3 Basophils # (Auto) 0.0 TH/MM3 CBC Comment DIFF FINAL Differential Comment Blood Urea Nitrogen 29 MG/DL Creatinine 1.01 MG/DL Random Glucose 134 MG/DL Calcium Level 8.3 MG/DL Phosphorus Level 3.1 MG/DL Magnesium Level 1.6 MG/DL Sodium Level 144 MEQ/L Potassium Level 3.7 MEQ/L Chloride Level 112 MEQ/L Carbon Dioxide Level 21.6 MEQ/L Anion Gap 10 MEQ/L Estimat Glomerular Filtration Rate 72 ML/MIN Imaging Echocardiogram: The left ventricular systolic function is severely reduced with an estimated ejection fraction of 20%. Mildly dilated left ventricle. Global hypokinesis. Upper normal wall thickness. A patent foramen ovale is present with a bidirectional shunt demonstrated by color flow Doppler interrogation, though no atrial level shunt is observed with agitated saline contrast administration. Mild mitral valve regurgitation. Trace aortic valve regurgitation. A prominent eustachian valve is observed in the right atrium (benign finding). Mild bi-atrial enlargement.There is mild to moderate tricuspid regurgitation. The estimated pulmonary arterial pressure is 70 mmHg. Assessment and Plan Problem List: (1) Permanent atrial fibrillation ICD Codes: I48.2 - Chronic atrial fibrillation Status: Chronic (2) Stroke ICD Codes: I63.9 - Stroke Status: Acute (3) Acute on chronic systolic (congestive) heart failure ICD Codes: I50.23 - Acute on chronic systolic (congestive) heart failure Status: Resolved (4) CAD (coronary artery disease) ICD Codes: I25.10 - Atherosclerotic heart disease of [place] coronary artery without angina pectoris Status: Acute (5) HTN (hypertension) ICD Codes: I10 - HTN (hypertension) Status: Acute (6) DM (diabetes mellitus) ICD Codes: E11.9 - DM (diabetes mellitus) Status: Acute (7) PFO (patent foramen ovale) ICD Codes: Q21.1 - Atrial septal defect Status: Chronic (8) Pulmonary hypertension ICD Codes: I27.20 - Pulmonary hypertension, unspecified Status: Chronic (9) CKD (chronic kidney disease) ICD Codes: N18.9 - CKD (chronic kidney disease) Status: Acute Assessment and Plan Echo report reviewed. Passed repeat swallowing test yesterday. IV meds discontinued and all PO meds restarted. D/C ASA. Was on Crestor 20mg daily at home. Not on formulary but change back after discharge. Plan for discharge to rehab facility soon. See orders. Following with you. Prognosis remains guarded, Code Status Full Discussed Condition With Discussed plans with patient and staff writer. Problem Qualifiers (1) Stroke: Qualified Codes: I63.9 - Cerebral infarction, unspecified Alonso Sánchez MD Jul 09, 2017 05:09
--- NOTE | 2017-07-09 06:10 | RADRPT ---
EXAM DATE/TIME: 07/09/2017 05:16 [facility] COMPARISON: CHEST SINGLE AP, July 06, 2017, 12:04. INDICATIONS : Respiratory failure. MEDICAL HISTORY : Diabetes mellitus type II. Hypertension SURGICAL HISTORY : Coronary artery stent. Hiatal hernia surgery. ENCOUNTER: Subsequent ACUITY: 3 days PAIN SCORE: Non-responsive. LOCATION: Bilateral chest FINDINGS: The cardiac silhouette is enlarged. The lungs are grossly clear. There is a PICC line placed from the left arm with the tip overlying the SVC. CONCLUSION: Cardiomegaly. Bud Cash MD on July 09, 2017 at 6:08 Board Certified Radiologist. This report was verified electronically.
[2017-07-09] MEDS: SODIUM CHLORIDE 0.9% FLUSH 10 ML FLUSH IV FLUSH SCH (09:00)
[2017-07-09] MEDS ORDERED: DILTIAZEM-CD 180 MG CAP ER PO SCH (09:00)
[2017-07-09] MEDS: SODIUM CHLORIDE 0.9% FLUSH 5 ML FLUSH IV FLUSH SCH ×2 (09:00→21:00)
[2017-07-09] MEDS: DOCUSATE SODIUM 50 MG/SENNA 8.6 MG TAB PO SCH ×2 (10:05→21:26)
[2017-07-09] MEDS: RAMIPRIL 2.5 MG CAP PO SCH ×2 (10:06→21:26)
[2017-07-09] MEDS: SPIRONOLACTONE 25 MG TAB PO SCH (10:06)
[2017-07-09] MEDS: APIXABAN 5 MG TABLET PO SCH ×2 (10:07→21:26)
[2017-07-09] MEDS: PANTOPRAZOLE SODIUM 40 MG VIAL IV PUSH SCH (10:08)
[2017-07-09] MEDS: ARTIFICIAL TEARS OPTH SOLN 15 ML BTL EACH EYE SCH ×2 (10:10→13:00)
[2017-07-09] MEDS: DILTIAZEM-CD 120 MG CAP ER PO SCH (10:31)
[2017-07-09] MEDS: FENOFIBRATE 145 MG TAB PO SCH (10:32)
[2017-07-09] MEDS: CARVEDILOL 6.25 MG TAB PO SCH ×2 (10:44→21:26)
[2017-07-09] MEDS ORDERED: POTASSIUM CHLORIDE 10 MEQ CONTROLLED RELEASE TAB PO ONE (14:00)
[2017-07-09] MEDS: MAGNESIUM SULFATE 1 GM PREMIX 100 ML IV SCH ×2 (14:30→18:56)
--- NOTE | 2017-07-09 14:39 | HHI.CCPN ---
Subjective Remarks/Hospital Course This is a 76-year-old male. Date of admission 07/06/2017. Past medical history includes history of right basal ganglia CVA, dementia disorder NOS, atrial fibrillation, chronic systolic heart failure, hypertension, disc edema, gastroesophageal disease with a history of a gastric ulcer status post appendectomy and clipping 2011, diabetes mellitus poorly controlled. Patient presented to [facility] initially as a level II trauma after being found at home and down for unknown duration of time. Neighbor's had not recently seen the patient and were concerned and called EMS. Patient had a large hematomas and was placed in a c-collar. Incomprehensible groaning sounds. Patient had generalized weakness according to records. NIH score is 23. GCS was 9 now around 11 [id number] as he is currently talking, comprehensibly and spontaneously moving his left upper extremity and left lower extremity CT brain revealed old right basal ganglia CVA in the left occipital encephalomalacia. Patient was in A. fib with RVR with heart rate in the 120s. BMP revealed currently 1.8. Leukocytosis 12.2. Patient received 2 g of cefazolin and DTP 0.5 mg IM 1 Cardiology/ seen the patient. Patient recommended Lopressor 5 mm IV 1 for rate control. Currently on a diltiazem drip to maintain heart rate less than 100. Patient's source of stroke likely embolic. Echocardiogram has been ordered. Last EF 20% with moderate MR/TR and pulmonary pressure 54 mmHg. Patient will likely be a possible candidate for left atrial appendage closure device in 3-4 months if tolerates according to kiln stoker Dr. 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 CT brain revealed old right basal CVA and cephalization the left occipital lobe. Not a candidate for alteplase secondary to unknown duration of time and apixaban use. CTA head and neck revealed left TOOLROOM KEEPER stenosis. Generalized plaque in the carotid/carotid bulb the vertebral artery regions otherwise not flow-limiting. He will seeing consultation. MRI of the brain pending. 07/07: Worsening right facial droop/right upper and lower extremity weakness. Patient is more awake and interactive attempting to vocalize. Currently on phenylephrine drip at 20 mics grams from to maintain systolic pressure greater than 180. Cardizem drip added for rate control 07/08: Afebrile. Improved motion and strength in right upper extremity currently 3/4 over 5. Strength almost equal bilateral lower extremity's. Currently in room air. Heart rate better controlled on diltiazem drip at 5 mg an hour. Continues on phenylephrine drip @ 150 mcg per minute Subjective 07/09: Currently off all vasopressors. Carvedilol, diltiazem and lisinopril all resumed. Heparin drip discontinued and currently on Apixaban. Strength and movement right upper extremity much improved Objective Vital Signs Date Time Temp Pulse Resp B/P (MAP) Pulse Ox O2 Delivery O2 Flow Rate FiO2 07/09/17 12:00 98.5 84 27 130/57 (81) 95 07/09/17 09:31 21 07/08/17 07:10 Room Air 07/06/17 06:02 2.00 Intake and Output 07/09/17 07/09/17 07/10/17 08:00 16:00 00:00 Intake Total 321 ml 100 ml Balance 321 ml 100 ml Result Diagram: 07/09/17 0350 07/09/17 0350 Imaging Last Impressions Neck CTA 07/06/17600 Signed Impressions: Service Date/Time: Thursday, July 06, 2017 06:10 - CONCLUSION: Scattered plaque at the origin the great vessels, the carotid bulb regions, and proximal internal carotid arteries bilaterally without a significant stenosis seen. Bud Cash MD Head CTA 07/06/17600 Signed Impressions: Service Date/Time: Thursday, July 06, 2017 06:10 - CONCLUSION: Focal stenosis at the proximal left posterior cerebral artery. The distal flow appears normal throughout. Bud Cash MD Head CT 07/06/17540 Signed Impressions: Service Date/Time: Thursday, July 06, 2017 05:36 - CONCLUSION: 1. No acute abnormality is seen. 2. Atrophy. 3. Suspected small vessel ischemic change throughout the white matter. 4. Old lacunar infarct of the right basal ganglia. 5. Mild area of encephalomalacia at the left occipital lobe. Bud Cash MD Chest X-Ray 07/06/17540 Signed Impressions: Service Date/Time: Thursday, July 06, 2017 06:03 - CONCLUSION: Enlargement of the cardiac silhouette. Bud Cash MD Cervical Spine CT 07/06/17540 Signed Impressions: Service Date/Time: Thursday, July 06, 2017 05:37 - CONCLUSION: 1. No acute bony injury is seen. 2. Degenerative change. Bud Cash MD Brain MRI 07/06/17 0000 Signed Impressions: Service Date/Time: Thursday, July 06, 2017 12:47 - CONCLUSION: Subacute left partial MCA territory stroke. Bud Joseph MD Objective Remarks GENERAL: 76-year-old male, resting in bed in no acute distress on room air SKIN: Warm and dry. Hematoma without current active bleeding HEAD: Normocephalic. EYES: Pupils equal and round around 3 mm bilaterally and reactive. No scleral icterus. No injection or drainage. ENT: No nasal bleeding or discharge. Mucous membranes pink and moist. NECK: Trachea midline. No JVD. CARDIOVASCULAR: IRR. S1, S2. No S4. 1/6 systolic murmur RESPIRATORY: Clear to auscultation. Breath sounds equal bilaterally. GASTROINTESTINAL: Abdomen soft, non-tender, nondistended. Hypoactive bowel sounds are appreciated MUSCULOSKELETAL: Extremities without edema. No obvious deformities. NEUROLOGICAL: Awake and alert. Right facial droop somewhat improved. Strength 5 out of 5 left upper extremity. 5 out of 5 left lower extremity. 4out of 5 right upper 5 out of 5 lower extremity. Improved sensation to light touch and pinprick bilaterally. DTRs 1+ bilateral upper and lower extremities including brachial, patellar and Achilles. Pronator drift right upper extremity. Gait was not assessed. Vascular Central Line Catheter: Yes Assessment to: Continue Date of Insertion: Jul 06, 2017 Line: PICC Side: Left Location: Antecubital A/P Assessment and Plan Neuro/Psych: CVA History of right basal ganglia CVA Dementia disorder NOS CT brain 07/06 revealed old right basal ganglia CVA. Encephalization left occipital lobe CTA brain - focal left TOOLROOM KEEPER stenosis. CTA neck - generalized plaquing with no flow-limiting stenosis noted Dr. Pressley - neurology - not a candidate for alteplase secondary to unknown duration of time down and currently on Apixaban Note aspirin discontinued by cardiology to prior history of GI bleeding Goal blood pressure control to 140/80 Head of bed at 30 MRI brain 07/06 subacute left parietal CVA and MCA distribution? PT/OT/ST evaluate and treat CV: Atrial fibrillation with rapid ventricular response Chronic systolic heart failure ejection fraction 20% Coronary artery disease status post stent 3 Dyslipidemia Hypertension Pulmonary Hypertension PFO Dr. Ohara - cardiology following. Tysabri discontinued today 2-D echocardiogram 05/26 - EF 20%. LV dilatation. Moderate MR/TR. PAP 54 mmHg 2-D echocardiogram completed 07/07 revealed EF 20%. Global hypokinesis. Dilated left ventricle. PFO is present. No atrial level shunt is observed with agitated saline contrast administration. Mild MR/TR. PAP 70 mmHg Home medications include carvedilol 6.25 mg twice a day, ramipril 1.25 mg twice a day and Aldactone 25 mg daily. These have been resumed along with diltiazem at 120 no grams daily -Patient is on rosuvastatin 20 mg by mouth daily for dyslipidemia/hospital substitution pravastatin 40 mg daily. Along with fenofibrate 145 mg daily for dyslipidemia EKG on admission revealed A. fib with RVR. No ischemic changes. Per cardiology patient's heart is usually elevated Resp: Prior tobaccoism Nasal cannula to maintain saturations greater than equal to 92% Incentive spirometry while awake Follow-up on chest x-ray Strict aspiration precautions GI: Gastroesophageal reflux disease History of upper GI bleed - gastric ulcer status post clipping 2011 Mechanical soft diet Pantoprazole for GI prophylaxis. Patient is on omeprazole 20 mg by mouth daily for gastroesophageal reflux disease Docusate sodium/senna 1 tablet twice a day for bowel regimen : Ackerman catheter if indicated for accurate I's and O's in a critically ill patient Endo: Diabetes mellitus Euglycemia Home medications include metformin 500 mg daily, glimepiride 4 mg twice a day and linagliptin 18 mg/3 milliliters 0.6 mg subcutaneous daily Currently on sliding scale with Accu-Cheks before meals/at bedtime to maintain euglycemia/high regimen Novulin R Renal: Chronic kidney disease stage IIIa Creatinine around baseline currently 1.8. Currently 1.0 Monitor urine output Accurate I's and O's Avoid nephrotoxic medication Heme: Chronic Apixaban use Monitor CBC daily. Follow trends. Coags within normal limits Does not meet transfusion thresholds at this time Currently on Apixaban 5 mill grams twice a day ID: Monitor for infection Status post tetanus injection of 50 mg IM 1 and cefazolin 2 g IV 1 for hematoma MSK: PT/OT evaluate and treat FEN: Replace electrolytes as clinically indicated Access -Left PICC line day #4 placed 07/06 - Right femoral arterial line day 3 placed 07/07. Discontinued 07/09 Prophylaxis - GI - pantoprazole - DVT - SCDs/pharmacological prophylaxis Apixaban Level II follow-up. Patient is stable from a critical care medicine standpoint. Assign care to hospitalist in a.m. 07/10. Transferred to fifth floor neuro Renato Taylor MD Jul 09, 2017 14:39
--- NOTE | 2017-07-09 16:26 | HHI.PR ---
Review/Management Diagnosis 1. Acute / subacute ischemic stroke. 2. History of remote right basal ganglia stroke and left occipital lobe encephalomalacia. 3. History of dementia. 4. The patient was not a candidate for IV TPA due to unknown last time seen normal and currently on apixaban. 5. Atrial fibrillation with RVR. 6. Cardiomyopathy. 7. Coronary artery disease status post stenting. 8. Hyperlipidemia. 9. Hypertension. 10. Diabetes mellitus. 11. Chronic kidney disease. Plan - Neurological checks q. 4 hourly. - Elevate head of bed - Goal BP is 140-145/75-80 - Continue Eliquis at current home dose. - DVT prophylaxis. - Speech therapy recommendations are appreciated. - The patient will need inpatient rehab. - I personally reviewed the MRI of the brain that revealed extensive white matter ischemic changes at both the cortical and subcortical regions with extensive cortical atrophy particularly in the bilateral frontal and parietal region. - Discussed case with daughter at bed side - Continue supportive medical therapy - PT/OT, recommendations are appreciated - Patient may be managed by progressive medical unit Diagnosis/Plan: Subjective Subjective Comments No new events reported over night There is some improvement in the motor function Off the heparin drip Started on Apixaban Active Medications Current Medications Medications (Trade) Dose Ordered Sig/Víctor Route Start Time Stop Time Status Last Admin (D50w (Vial) Inj) 50 ml UNSCH PRN IV PUSH 07/06/17 08:45 (Glucagon Inj) 1 mg UNSCH PRN OTHER 07/06/17 08:45 (NS Flush) 2 ml BID IV FLUSH 07/06/17 09:00 07/08/17 21:56 (NS Flush) 2 ml UNSCH PRN IV FLUSH 07/06/17 08:45 (Pravachol) 40 mg HS PO 07/06/17 21:00 07/08/17 21:56 (Tylenol) 650 mg Q6H PRN PO 07/06/17 08:45 07/08/17 16:58 (Protonix Inj) 40 mg DAILY IV PUSH 07/06/17 10:00 07/09/17 10:08 (Zofran Inj) 4 mg Q6H PRN IV PUSH 07/06/17 08:45 (Albuterol Neb) 2.5 mg Q2HR NEB PRN INH 07/06/17 08:45 Miscellaneous Information 1 Q361D XX 07/06/17 08:45 07/06/17 08:45 (Chlorhexidine 2% Cloth) 3 pack Taper DAILY@04 TOP 07/07/17 04:00 07/03/18 03:59 (Chlorhexidine 2% Cloth) 3 pack UNSCH PRN TOP 07/06/17 08:45 (Britney-Colace) 1 tab BID PO 07/06/17 10:00 07/09/17 10:05 (Milk Of Magnesia Liq) 30 ml Q12H PRN PO 07/06/17 08:45 (Senokot) 17.2 mg Q12H PRN PO 07/06/17 08:45 (Dulcolax Supp) 10 mg DAILY PRN RECTAL 07/06/17 08:45 (Lactulose Liq) 30 ml DAILY PRN PO 07/06/17 08:45 (NS Flush) See Protocol DAILY IV FLUSH 07/07/17 09:00 07/09/17 09:00 (NS Flush) See Protocol UNSCH PRN IV FLUSH 07/06/17 12:15 (Heparin Central Flush) See Protocol DAILY IV FLUSH 07/07/17 09:00 (Heparin Central Flush) See Protocol UNSCH PRN IV FLUSH 07/06/17 12:15 (NS Flush) UNSCH PRN IV FLUSH 07/06/17 12:15 (NS Flush) SEE PROTOCOL UNSCH PRN IV FLUSH 07/06/17 12:15 (NS Flush) 3 ml UNSCH PRN IV FLUSH 07/06/17 12:15 (Coreg) 6.25 mg Q12HR PO 07/09/17 09:00 07/09/17 10:44 (Eliquis) 5 mg BID PO 07/09/17 09:00 07/09/17 10:07 (Aldactone) 25 mg DAILY PO 07/09/17 09:00 07/09/17 10:06 (Altace) 2.5 mg BID PO 07/09/17 09:00 07/09/17 10:06 (Tricor) 145 mg DAILY PO 07/09/17 09:00 07/09/17 10:32 (Cardizem Cd) 120 mg DAILY PO 07/09/17 09:00 07/09/17 10:31 Magnesium Sulfate/ Dextrose 100 ml @ 100 mls/hr Q1H IV 07/09/17 14:30 07/09/17 16:29 (NovoLIN R SUPPLEMENTAL SCALE) 1 ACHS03 SLIDE SCALE SQ 07/09/17 17:00 Allergies Allergies Coded Allergies allopurinol (Verified Allergy, Unknown, 06/29/17) hydrochlorothiazide (Verified Allergy, Unknown, 06/29/17) penicillin G (Unverified Allergy, Unknown, 06/29/17) acetaminophen (Unverified Adverse Reaction, Intermediate, VOMITING, 06/29/17) propoxyphene (Unverified Adverse Reaction, Intermediate, VOMITING, 06/29/17) Uncoded Allergies potassium citrate ( Allergy, Unknown, 06/29/17) Review of Systems All other ROS: ROS reviewed as documented in chart Exam I&O / VS 07/09/17 07/09/17 07/10/17 15:00 23:00 07:00 Intake Total 100 ml Balance 100 ml IV Total 100 ml Vital Signs Date Time Temp Pulse Resp B/P (MAP) Pulse Ox O2 Delivery O2 Flow Rate FiO2 07/09/17 12:00 98.5 84 27 130/57 (81) 95 07/09/17 09:31 95 21 07/09/17 08:00 98.6 60 20 160/67 (98) 95 07/09/17 07:00 68 07/09/17 04:00 96.9 57 20 124/54 (77) 95 07/09/17 00:00 97.3 66 24 128/60 (82) 95 07/08/17 23:00 68 07/08/17 20:00 97.6 76 25 130/58 (82) 90 07/08/17 19:50 94 21 Exam Comments GENERAL: Awake, alert, daughter at bed side. HEENT: Atraumatic, normocephalic. No jaundice. NECK: Trachea in the midline. No signs of meningeal irritation. CARDIOVASCULAR: Irregularly irregular heart rate. Systolic murmur. LUNGS: Clear to auscultation. No wheezes. GASTROINTESTINAL: Soft abdomen, nontender. MUSCULOSKELETAL: No edema, cyanosis or deformities. NEUROLOGIC: Awake, alert.oriented to person, place and time, mild expressive dysphasia, intact naming, comprehension and reading, slurred speech, less pronounced right facial palsy, moves right side , pyramidal weakness of right UE &LE in the right side, UE weaker than LE, 4+/5 right shoulder abd, elbow and wrist extension, 5-/5 right hip flexion, otherwise 5/5 throughout, right plantar is upgoing/Babinski sign, left plantar is downgoing Objective Radiology Results Last 72 hours Impressions Chest X-Ray 07/09/17 0600 Signed Impressions: Service Date/Time: June 05:16 - CONCLUSION: Cardiomegaly. Bud Cash MD Micro and Labs Laboratory Tests Test 07/08/17 17:35 07/08/17 21:15 07/09/17 03:50 Activated Partial Thromboplast Time 61.4 111.1 White Blood Count 10.7 Red Blood Count 4.64 Hemoglobin 13.1 Hematocrit 39.4 Mean Corpuscular Volume 84.9 Mean Corpuscular Hemoglobin 28.3 Mean Corpuscular Hemoglobin Concent 33.4 Red Cell Distribution Width 15.6 Platelet Count 169 Mean Platelet Volume 7.5 Neutrophils (%) (Auto) 66.1 Lymphocytes (%) (Auto) 14.9 Monocytes (%) (Auto) 10.2 Eosinophils (%) (Auto) 8.5 Basophils (%) (Auto) 0.3 Neutrophils # (Auto) 7.1 Lymphocytes # (Auto) 1.6 Monocytes # (Auto) 1.1 Eosinophils # (Auto) 0.9 Basophils # (Auto) 0.0 CBC Comment DIFF FINAL Differential Comment Blood Urea Nitrogen 29 Creatinine 1.01 Random Glucose 134 Calcium Level 8.3 Phosphorus Level 3.1 Magnesium Level 1.6 Sodium Level 144 Potassium Level 3.7 Chloride Level 112 Carbon Dioxide Level 21.6 Anion Gap 10 Estimat Glomerular Filtration Rate 72 Alyse Pressley MD Jul 09, 2017 16:26
[2017-07-09] MEDS: PRAVASTATIN SOD 40 MG TAB PO SCH (21:00)
[2017-07-10] VITALS (9 sets, daily range): BP systolic 109–161; BP diastolic 56–97; PULSE 64–88; RESP 18–38; TEMP 96.5–98.7; O2SAT 94–97
[2017-07-10] MEDS: INSULIN NovoLIN REGULAR SUPPLEMENTAL SCALE SQ SCH ×5 (03:00→21:48)
[2017-07-10] MEDS: CHLORHEXIDINE GLUCONATE 2 % 1 PACK (2 CLOTHS) TOP SCH (04:00)
[2017-07-10 04:58] LABS: HEMATOCRIT 37.8 % (39.0-51.0); MEAN CELL VOLUME 85.4 FL (80.0-100.0); MEAN CORPUSCULAR HEMOGLOBIN 28.8 PG (27.0-34.0); MEAN CORPUSCULAR HGB CONC 33.7 % (32.0-36.0); PLATELET COUNT 141 TH/MM3 (150-450); RED BLOOD COUNT 4.42 MIL/MM3 (4.50-5.90); RED CELL DISTRIBUTION WIDTH 15.2 % (11.6-17.2); REVIEW FLAG FINAL
[2017-07-10 05:13] LABS: BICARBONATE 23.8 MEQ/L (21.0-32.0); MAGNESIUM 1.6 MG/DL (1.5-2.5); POTASSIUM 3.7 MEQ/L (3.5-5.1)
--- NOTE | 2017-07-10 07:11 | PD.CARD.PN ---
Subjective Subjective Remarks Continue to improve slowly. Able to speak a few words. Awake and alert. Able to take PO. Moving all extremities. Follows commands. Objective Medications Current Medications Medications (Trade) Dose Ordered Sig/Víctor Route Start Time Stop Time Status Last Admin (D50w (Vial) Inj) 50 ml UNSCH PRN IV PUSH 07/06/17 08:45 (Glucagon Inj) 1 mg UNSCH PRN OTHER 07/06/17 08:45 (NS Flush) 2 ml BID IV FLUSH 07/06/17 09:00 07/08/17 21:56 (NS Flush) 2 ml UNSCH PRN IV FLUSH 07/06/17 08:45 (Pravachol) 40 mg HS PO 07/06/17 21:00 07/09/17 21:00 (Tylenol) 650 mg Q6H PRN PO 07/06/17 08:45 07/08/17 16:58 (Protonix Inj) 40 mg DAILY IV PUSH 07/06/17 10:00 07/09/17 10:08 (Zofran Inj) 4 mg Q6H PRN IV PUSH 07/06/17 08:45 (Albuterol Neb) 2.5 mg Q2HR NEB PRN INH 07/06/17 08:45 Miscellaneous Information 1 Q361D XX 07/06/17 08:45 07/06/17 08:45 (Chlorhexidine 2% Cloth) 3 pack Taper DAILY@04 TOP 07/07/17 04:00 07/03/18 03:59 (Chlorhexidine 2% Cloth) 3 pack UNSCH PRN TOP 07/06/17 08:45 (Britney-Colace) 1 tab BID PO 07/06/17 10:00 07/09/17 21:26 (Milk Of Magnesia Liq) 30 ml Q12H PRN PO 07/06/17 08:45 (Senokot) 17.2 mg Q12H PRN PO 07/06/17 08:45 (Dulcolax Supp) 10 mg DAILY PRN RECTAL 07/06/17 08:45 (Lactulose Liq) 30 ml DAILY PRN PO 07/06/17 08:45 (NS Flush) See Protocol DAILY IV FLUSH 07/07/17 09:00 07/09/17 09:00 (NS Flush) See Protocol UNSCH PRN IV FLUSH 07/06/17 12:15 (Heparin Central Flush) See Protocol DAILY IV FLUSH 07/07/17 09:00 (Heparin Central Flush) See Protocol UNSCH PRN IV FLUSH 07/06/17 12:15 (NS Flush) UNSCH PRN IV FLUSH 07/06/17 12:15 (NS Flush) SEE PROTOCOL UNSCH PRN IV FLUSH 07/06/17 12:15 (NS Flush) 3 ml UNSCH PRN IV FLUSH 07/06/17 12:15 (Coreg) 6.25 mg Q12HR PO 07/09/17 09:00 07/09/17 21:26 (Eliquis) 5 mg BID PO 07/09/17 09:00 07/09/17 21:26 (Aldactone) 25 mg DAILY PO 07/09/17 09:00 07/09/17 10:06 (Altace) 2.5 mg BID PO 07/09/17 09:00 07/09/17 21:26 (Tricor) 145 mg DAILY PO 07/09/17 09:00 07/09/17 10:32 (Cardizem Cd) 120 mg DAILY PO 07/09/17 09:00 07/09/17 10:31 (NovoLIN R SUPPLEMENTAL SCALE) 1 ACHS03 SLIDE SCALE SQ 07/09/17 17:00 07/09/17 21:28 Vital Signs / I&O Vital Signs Date Time Temp Pulse Resp B/P (MAP) Pulse Ox O2 Delivery O2 Flow Rate FiO2 07/10/17 04:00 64 27 123/60 (81) 97 07/10/17 00:00 67 29 120/56 (77) 96 07/09/17 20:00 97.9 88 38 144/97 (113) 94 Arterial Line 07/09/17 19:54 98 07/09/17 16:00 99.2 65 27 104/58 (73) 95 07/09/17 15:00 68 07/09/17 12:00 98.5 84 27 130/57 (81) 95 07/09/17 09:31 95 21 07/09/17 08:00 98.6 60 20 160/67 (98) 95 I/O 07/09/17 07/09/17 07/09/17 07/10/17 07/10/17 07/10/17 07:00 15:00 23:00 07:00 15:00 23:00 Intake Total 321 ml 100 ml 360 ml 30 ml Output Total 550 ml 425 ml Balance 321 ml 100 ml -190 ml -395 ml Intake Oral 120 ml 360 ml 30 ml IV Total 201 ml 100 ml Output Urine Total 550 ml 425 ml # Voids 1 1 2 # Bowel Movements 0 1 Physical Exam VSS, afebrile. VR controlled. No JVD Lungs: CTA Heart Irreg, S1, S2 Ext: No C/C/E Neuro eval per Dr. Pressley. Laboratory Laboratory Tests Test 07/09/17 17:25 07/10/17 03:50 Magnesium Level 1.7 MG/DL 1.6 MG/DL White Blood Count 8.0 TH/MM3 Red Blood Count 4.42 MIL/MM3 Hemoglobin 12.7 GM/DL Hematocrit 37.8 % Mean Corpuscular Volume 85.4 FL Mean Corpuscular Hemoglobin 28.8 PG Mean Corpuscular Hemoglobin Concent 33.7 % Red Cell Distribution Width 15.2 % Platelet Count 141 TH/MM3 Mean Platelet Volume 8.0 FL Blood Urea Nitrogen 23 MG/DL Creatinine 0.94 MG/DL Random Glucose 108 MG/DL Calcium Level 8.4 MG/DL Phosphorus Level 3.0 MG/DL Sodium Level 141 MEQ/L Potassium Level 3.7 MEQ/L Chloride Level 108 MEQ/L Carbon Dioxide Level 23.8 MEQ/L Anion Gap 9 MEQ/L Estimat Glomerular Filtration Rate 78 ML/MIN Imaging Last 48 hours Impressions Chest X-Ray 07/09/17 0600 Signed Impressions: Service Date/Time: June 05:16 - CONCLUSION: Cardiomegaly. Bud Cash MD Assessment and Plan Problem List: (1) Permanent atrial fibrillation ICD Codes: I48.2 - Chronic atrial fibrillation Status: Chronic (2) Stroke ICD Codes: I63.9 - Stroke Status: Acute (3) Acute on chronic systolic (congestive) heart failure ICD Codes: I50.23 - Acute on chronic systolic (congestive) heart failure Status: Resolved (4) CAD (coronary artery disease) ICD Codes: I25.10 - Atherosclerotic heart disease of [place] coronary artery without angina pectoris Status: Acute (5) HTN (hypertension) ICD Codes: I10 - HTN (hypertension) Status: Acute (6) DM (diabetes mellitus) ICD Codes: E11.9 - DM (diabetes mellitus) Status: Acute (7) PFO (patent foramen ovale) ICD Codes: Q21.1 - Atrial septal defect Status: Chronic (8) Pulmonary hypertension ICD Codes: I27.20 - Pulmonary hypertension, unspecified Status: Chronic (9) CKD (chronic kidney disease) ICD Codes: N18.9 - CKD (chronic kidney disease) Status: Acute (10) Hypomagnesemia ICD Codes: E83.42 - Hypomagnesemia Status: Acute Plan: Replacing Assessment and Plan Slowly improving. On PO meds. tolerating well. Hemodynamics are stable. Was on Crestor 20mg daily at home. Not on formulary but change back after discharge. Replace magnesium to 2.0 Transfer to [facility] today. Plan for discharge to rehab facility soon. See orders. Prognosis fair. I will sign off and arrange outpatient follow up in 2-[address] Barbosa covering me over the weekend. Please call if needed. Code Status Full Discussed Condition With Discussed with patient and temporary staff accountant. Problem Qualifiers (1) Stroke: Qualified Codes: I63.9 - Cerebral infarction, unspecified Alonso Sánchez MD Jul 10, 2017 07:11
[2017-07-10] MEDS ORDERED: MAGNESIUM SULFATE 1 GM PREMIX 100 ML IV SCH (07:30)
[2017-07-10] MEDS ORDERED: ASPIRIN 81 MG CHEW TAB CHEW SCH (09:00)
[2017-07-10] MEDS: SODIUM CHLORIDE 0.9% FLUSH 5 ML FLUSH IV FLUSH SCH ×2 (09:00→21:55)
[2017-07-10] MEDS: SODIUM CHLORIDE 0.9% FLUSH 10 ML FLUSH IV FLUSH SCH (09:00)
[2017-07-10] MEDS: RAMIPRIL 2.5 MG CAP PO SCH ×2 (09:01→21:53)
[2017-07-10] MEDS: FENOFIBRATE 145 MG TAB PO SCH (09:01)
[2017-07-10] MEDS: DOCUSATE SODIUM 50 MG/SENNA 8.6 MG TAB PO SCH ×2 (09:01→21:55)
[2017-07-10] MEDS: PANTOPRAZOLE SODIUM 40 MG VIAL IV PUSH SCH (09:01)
[2017-07-10] MEDS: CARVEDILOL 6.25 MG TAB PO SCH ×2 (09:02→21:50)
[2017-07-10] MEDS: SPIRONOLACTONE 25 MG TAB PO SCH (09:02)
[2017-07-10] MEDS: APIXABAN 5 MG TABLET PO SCH ×2 (09:02→21:50)
[2017-07-10] MEDS: DILTIAZEM-CD 120 MG CAP ER PO SCH (09:05)
--- NOTE | 2017-07-10 14:29 | HHI.PR ---
Subjective Remarks Undercover Agent Notes: This is a 76-year-old male. Date of admission 07/06/2017. Past medical history includes history of right basal ganglia CVA, dementia disorder NOS, atrial fibrillation, chronic systolic heart failure, hypertension, disc edema, gastroesophageal disease with a history of a gastric ulcer status post appendectomy and clipping 2011, diabetes mellitus poorly controlled. Patient presented to [facility] initially as a level II trauma after being found at home and down for unknown duration of time. Neighbor's had not recently seen the patient and were concerned and called EMS. Patient had a large hematomas and was placed in a c-collar. Incomprehensible groaning sounds. Patient had generalized weakness according to records. NIH score is 23. GCS was 9 now around 11 [id number] as he is currently talking, comprehensibly and spontaneously moving his left upper extremity and left lower extremity CT brain revealed old right basal ganglia CVA in the left occipital encephalomalacia. Patient was in A. fib with RVR with heart rate in the 120s. BMP revealed currently 1.8. Leukocytosis 12.2. Patient received 2 g of cefazolin and DTP 0.5 mg IM 1 Cardiology/ seen the patient. Patient recommended Lopressor 5 mm IV 1 for rate control. Currently on a diltiazem drip to maintain heart rate less than 100. Patient's source of stroke likely embolic. Echocardiogram has been ordered. Last EF 20% with moderate MR/TR and pulmonary pressure 54 mmHg. Patient will likely be a possible candidate for left atrial appendage closure device in 3-4 months if tolerates according to harnessmaker apprentice Dr. 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 CT brain revealed old right basal CVA and cephalization the left occipital lobe. Not a candidate for alteplase secondary to unknown duration of time and apixaban use. CTA head and neck revealed left [employer] stenosis. Generalized plaque in the carotid/carotid bulb the vertebral artery regions otherwise not flow-limiting. He will seeing consultation. MRI of the brain pending. 07/07: Worsening right facial droop/right upper and lower extremity weakness. Patient is more awake and interactive attempting to vocalize. Currently on phenylephrine drip at 20 mics grams from to maintain systolic pressure greater than 180. Cardizem drip added for rate control 07/08: Afebrile. Improved motion and strength in right upper extremity currently 3/4 over 5. Strength almost equal bilateral lower extremity's. Currently in room air. Heart rate better controlled on diltiazem drip at 5 mg an hour. Continues on phenylephrine drip @ 150 mcg per minute 07/09: Currently off all vasopressors. Carvedilol, diltiazem and lisinopril all resumed. Heparin drip discontinued and currently on Apixaban. Strength and movement right upper extremity much improved Hospitalist Notes: 07/10: Seen in his bedroom in the presence of Nurse he is been followed by Neurology specialist, wit Diagnosis of Acute/Subacute ischemic Stroke, History of remote ganglia stroke and left occipital lobe encephalomalacia, dementia, the patient was on Apixaban when this happened and not candidate for TPA, has Atrial Fibrillation with RVR, CAD status post PCI and stenting, recommended to continue Eliquis go to Rehab he is been accepted by [facility] and will be transferred later today, no nausea, vomit or diarrhea. working with PT, OT and ST. Objective Vital Signs Date Time Temp Pulse Resp B/P (MAP) Pulse Ox O2 Delivery O2 Flow Rate FiO2 07/10/17 04:00 64 27 123/60 (81) 97 07/10/17 00:00 67 29 120/56 (77) 96 07/09/17 20:00 97.9 88 38 144/97 (113) 94 Arterial Line 07/09/17 19:54 98 07/09/17 16:00 99.2 65 27 104/58 (73) 95 07/09/17 15:00 68 I/O 07/09/17 07/09/17 07/09/17 07/10/17 07/10/17 07/10/17 06:59 14:59 22:59 06:59 14:59 22:59 Intake Total 321 ml 100 ml 360 ml 30 ml Output Total 550 ml 425 ml Balance 321 ml 100 ml -190 ml -395 ml Intake Oral 120 ml 360 ml 30 ml IV Total 201 ml 100 ml Output Urine Total 550 ml 425 ml # Voids 1 1 2 # Bowel Movements 0 1 Result Diagram: 07/10/17 0350 07/10/17 0350 Imaging Last Impressions Chest X-Ray 07/09/17 0600 Signed Impressions: Service Date/Time: June 05:16 - CONCLUSION: Cardiomegaly. Bud Cash MD Neck CTA 07/06/17 0601 Signed Impressions: Service Date/Time: Thursday, July 06, 2017 06:10 - CONCLUSION: Scattered plaque at the origin the great vessels, the carotid bulb regions, and proximal internal carotid arteries bilaterally without a significant stenosis seen. Bud Cash MD Head CTA 07/06/17 0601 Signed Impressions: Service Date/Time: Thursday, July 06, 2017 06:10 - CONCLUSION: Focal stenosis at the proximal left posterior cerebral artery. The distal flow appears normal throughout. Bud Cash MD Head CT 07/06/17 0541 Signed Impressions: Service Date/Time: Thursday, July 06, 2017 05:36 - CONCLUSION: 1. No acute abnormality is seen. 2. Atrophy. 3. Suspected small vessel ischemic change throughout the white matter. 4. Old lacunar infarct of the right basal ganglia. 5. Mild area of encephalomalacia at the left occipital lobe. Bud Cash MD Cervical Spine CT 07/06/17 0541 Signed Impressions: Service Date/Time: Thursday, July 06, 2017 05:37 - CONCLUSION: 1. No acute bony injury is seen. 2. Degenerative change. Bud Cash MD Brain MRI 07/06/17 0000 Signed Impressions: Service Date/Time: Thursday, July 06, 2017 12:47 - CONCLUSION: Subacute left partial MCA territory stroke. Bud Joseph MD Procedures None Other Results Laboratory Tests Test 07/06/17 05:40 07/06/17 06:30 07/06/17 09:40 07/07/17 04:20 Bedside Hemoglobin 16.3 G/DL Bedside Hematocrit 48.0 % Fibrinogen 414 mg/dL Bedside Sodium 140 MMOL/L Bedside Potassium 4.2 MMOL/L Bedside Chloride 106 MMOL/L Bedside Blood Urea Nitrogen 42 MG/DL Bedside Creatinine 1.8 MG/DL Bedside Glucose 203 MG/DL Total Creatine Kinase 24 U/L Troponin I 0.12 NG/ML Ethyl Alcohol Level LESS THAN 3 MG/DL Urine Opiates Screen NEG Urine Barbiturates Screen NEG Urine Amphetamines Screen NEG Urine Benzodiazepines Screen NEG Urine Cocaine Screen NEG Urine Cannabinoids Screen NEG Nasal Screen MRSA (PCR) MRSA NOT DETECTED Hemoglobin A1c 8.5 % Lactic Acid Level 1.7 mmol/L Triglycerides Level 66 MG/DL Cholesterol Level 135 MG/DL LDL Cholesterol 68 MG/DL HDL Cholesterol 53.6 MG/DL Cholesterol/HDL Ratio 2.51 RATIO Test 07/07/17 09:05 07/08/17 03:44 07/08/17 21:15 07/09/17 03:50 Prothrombin Time 14.2 SEC Prothromb Time International Ratio 1.3 RATIO Blood Urea Nitrogen 32 MG/DL Creatinine 1.18 MG/DL Random Glucose 192 MG/DL Total Protein 7.2 GM/DL Albumin 3.3 GM/DL Calcium Level 8.6 MG/DL Phosphorus Level 2.1 MG/DL Magnesium Level 2.2 MG/DL Alkaline Phosphatase 67 U/L Aspartate Amino Transf (AST/SGOT) 35 U/L Alanine Aminotransferase (ALT/SGPT) 11 U/L Total Bilirubin 0.6 MG/DL Sodium Level 139 MEQ/L Potassium Level 4.1 MEQ/L Chloride Level 109 MEQ/L Carbon Dioxide Level 20.3 MEQ/L Activated Partial Thromboplast Time 111.1 SEC Neutrophils (%) (Auto) 66.1 % Lymphocytes (%) (Auto) 14.9 % Monocytes (%) (Auto) 10.2 % Eosinophils (%) (Auto) 8.5 % Basophils (%) (Auto) 0.3 % Neutrophils # (Auto) 7.1 TH/MM3 Lymphocytes # (Auto) 1.6 TH/MM3 Monocytes # (Auto) 1.1 TH/MM3 Eosinophils # (Auto) 0.9 TH/MM3 Basophils # (Auto) 0.0 TH/MM3 CBC Comment DIFF FINAL Differential Comment Test 07/10/17 03:50 White Blood Count 8.0 TH/MM3 Red Blood Count 4.42 MIL/MM3 Hemoglobin 12.7 GM/DL Hematocrit 37.8 % Mean Corpuscular Volume 85.4 FL Mean Corpuscular Hemoglobin 28.8 PG Mean Corpuscular Hemoglobin Concent 33.7 % Red Cell Distribution Width 15.2 % Platelet Count 141 TH/MM3 Mean Platelet Volume 8.0 FL Blood Urea Nitrogen 23 MG/DL Creatinine 0.94 MG/DL Random Glucose 108 MG/DL Calcium Level 8.4 MG/DL Phosphorus Level 3.0 MG/DL Magnesium Level 1.6 MG/DL Sodium Level 141 MEQ/L Potassium Level 3.7 MEQ/L Chloride Level 108 MEQ/L Carbon Dioxide Level 23.8 MEQ/L Anion Gap 9 MEQ/L Estimat Glomerular Filtration Rate 78 ML/MIN Objective Remarks GENERAL: 76-year-old male, resting in bed in no acute distress on room air SKIN: Warm and dry. Hematoma without current active bleeding HEAD: Normocephalic. EYES: Pupils equal and round around 3 mm bilaterally and reactive. No scleral icterus. No injection or drainage. ENT: No nasal bleeding or discharge. Mucous membranes pink and moist. NECK: Trachea midline. No JVD. CARDIOVASCULAR: IRR. S1, S2. No S4. 1/6 systolic murmur RESPIRATORY: Clear to auscultation. Breath sounds equal bilaterally. GASTROINTESTINAL: Abdomen soft, non-tender, nondistended. Hypoactive bowel sounds are appreciated MUSCULOSKELETAL: Extremities without edema. No obvious deformities. NEUROLOGICAL: Awake and alert. Right facial droop somewhat improved. Strength 5 out of 5 left upper extremity. 5 out of 5 left lower extremity. 4out of 5 right upper 5 out of 5 lower extremity. Improved sensation to light touch and pinprick bilaterally. DTRs 1+ bilateral upper and lower extremities including brachial, patellar and Achilles. Pronator drift right upper extremity. Gait was not assessed. Medications and IVs Current Medications Medications (Trade) Dose Ordered Sig/Víctor Route Start Time Stop Time Status Last Admin (D50w (Vial) Inj) 50 ml UNSCH PRN IV PUSH 07/06/17 08:45 (Glucagon Inj) 1 mg UNSCH PRN OTHER 07/06/17 08:45 (NS Flush) 2 ml BID IV FLUSH 07/06/17 09:00 07/08/17 21:56 (NS Flush) 2 ml UNSCH PRN IV FLUSH 07/06/17 08:45 (Pravachol) 40 mg HS PO 07/06/17 21:00 07/09/17 21:00 (Tylenol) 650 mg Q6H PRN PO 07/06/17 08:45 07/08/17 16:58 (Protonix Inj) 40 mg DAILY IV PUSH 07/06/17 10:00 07/10/17 09:01 (Zofran Inj) 4 mg Q6H PRN IV PUSH 07/06/17 08:45 (Albuterol Neb) 2.5 mg Q2HR NEB PRN INH 07/06/17 08:45 Miscellaneous Information 1 Q361D XX 07/06/17 08:45 07/06/17 08:45 (Chlorhexidine 2% Cloth) 3 pack Taper DAILY@04 TOP 07/07/17 04:00 07/03/18 03:59 (Chlorhexidine 2% Cloth) 3 pack UNSCH PRN TOP 07/06/17 08:45 (Britney-Colace) 1 tab BID PO 07/06/17 10:00 07/10/17 09:01 (Milk Of Magnesia Liq) 30 ml Q12H PRN PO 07/06/17 08:45 (Senokot) 17.2 mg Q12H PRN PO 07/06/17 08:45 (Dulcolax Supp) 10 mg DAILY PRN RECTAL 07/06/17 08:45 (Lactulose Liq) 30 ml DAILY PRN PO 07/06/17 08:45 (NS Flush) See Protocol DAILY IV FLUSH 07/07/17 09:00 07/09/17 09:00 (NS Flush) See Protocol UNSCH PRN IV FLUSH 07/06/17 12:15 (Heparin Central Flush) See Protocol DAILY IV FLUSH 07/07/17 09:00 07/10/17 09:04 (Heparin Central Flush) See Protocol UNSCH PRN IV FLUSH 07/06/17 12:15 (NS Flush) UNSCH PRN IV FLUSH 07/06/17 12:15 (NS Flush) SEE PROTOCOL UNSCH PRN IV FLUSH 07/06/17 12:15 (NS Flush) 3 ml UNSCH PRN IV FLUSH 07/06/17 12:15 (Coreg) 6.25 mg Q12HR PO 07/09/17 09:00 07/10/17 09:02 (Eliquis) 5 mg BID PO 07/09/17 09:00 07/10/17 09:02 (Aldactone) 25 mg DAILY PO 07/09/17 09:00 07/10/17 09:02 (Altace) 2.5 mg BID PO 07/09/17 09:00 07/10/17 09:01 (Tricor) 145 mg DAILY PO 07/09/17 09:00 07/10/17 09:01 (Cardizem Cd) 120 mg DAILY PO 07/09/17 09:00 07/10/17 09:05 (NovoLIN R SUPPLEMENTAL SCALE) 1 ACHS03 SLIDE SCALE SQ 07/09/17 17:00 07/10/17 12:46 A/P Assessment and Plan CVA History of right basal ganglia CVA Dementia disorder NOS CT brain 07/06 revealed old right basal ganglia CVA. Encephalization left occipital lobe CTA brain - focal left [employer] stenosis. CTA neck - generalized plaquing with no flow-limiting stenosis noted Dr. Pressley - neurology - not a candidate for alteplase secondary to unknown duration of time down and currently on Apixaban Note aspirin discontinued by cardiology to prior history of GI bleeding Goal blood pressure control to 140/80 Head of bed at 30 MRI brain 07/06 subacute left parietal CVA and MCA distribution? PT/OT/ST evaluate and treat CV: Atrial fibrillation with rapid ventricular response Chronic systolic heart failure ejection fraction 20% Coronary artery disease status post stent 3 Dyslipidemia Hypertension Pulmonary Hypertension PFO Dr. Ohara - cardiology following. Tysabri discontinued today 2-D echocardiogram 05/26 - EF 20%. LV dilatation. Moderate MR/TR. PAP 54 mmHg 2-D echocardiogram completed 07/07 revealed EF 20%. Global hypokinesis. Dilated left ventricle. PFO is present. No atrial level shunt is observed with agitated saline contrast administration. Mild MR/TR. PAP 70 mmHg Home medications include carvedilol 6.25 mg twice a day, ramipril 1.25 mg twice a day and Aldactone 25 mg daily. These have been resumed along with diltiazem at 120 no grams daily -Patient is on rosuvastatin 20 mg by mouth daily for dyslipidemia/hospital substitution pravastatin 40 mg daily. Along with fenofibrate 145 mg daily for dyslipidemia EKG on admission revealed A. fib with RVR. No ischemic changes. Per cardiology patient's heart is usually elevated Cardiology signed off the case Resp: Prior tobaccoism Nasal cannula to maintain saturations greater than equal to 92% Incentive spirometry while awake Follow-up on chest x-ray Strict aspiration precautions GI: Gastroesophageal reflux disease History of upper GI bleed - gastric ulcer status post clipping 2011 Mechanical soft diet Pantoprazole for GI prophylaxis. Patient is on omeprazole 20 mg by mouth daily for gastroesophageal reflux disease Docusate sodium/senna 1 tablet twice a day for bowel regimen Endo: Diabetes mellitus Euglycemia Home medications include metformin 500 mg daily, glimepiride 4 mg twice a day and linagliptin 18 mg/3 milliliters 0.6 mg subcutaneous daily Currently on sliding scale with Accu-Cheks before meals/at bedtime to maintain euglycemia/high regimen Novulin R continue Home Medicines at Rehab if recommended by Physicians. at this time will go on sliding scale. Renal: Chronic kidney disease stage IIIa Creatinine around baseline currently 1.8. Currently 1.0 Monitor urine output Accurate I's and O's Avoid nephrotoxic medication Heme: Chronic Apixaban use Monitor CBC daily. Follow trends. Coags within normal limits Does not meet transfusion thresholds at this time Currently on Apixaban 5 mill grams twice a day ID: Monitor for infection Status post tetanus injection of 50 mg IM 1 and cefazolin 2 g IV 1 for hematoma MSK: PT/OT evaluate and treat FEN: Replace electrolytes as clinically indicated Access -Left PICC line day #4 placed 07/06 - Right femoral arterial line day 3 placed 07/07. Discontinued 07/09 Prophylaxis - GI - pantoprazole - DVT - SCDs/pharmacological prophylaxis Apixaban Discharge Planning Expected transfer to [facility] tomorrow. Obey Tavera MD Jul 10, 2017 14:29
--- NOTE | 2017-07-10 16:15 | HHI.PR ---
Review/Management Diagnosis 1. Acute / subacute ischemic stroke. 2. History of remote right basal ganglia stroke and left occipital lobe encephalomalacia. 3. History of dementia. 4. The patient was not a candidate for IV TPA due to unknown last time seen normal and currently on apixaban. 5. Atrial fibrillation with RVR. 6. Cardiomyopathy. 7. Coronary artery disease status post stenting. 8. Hyperlipidemia. 9. Hypertension. 10. Diabetes mellitus. 11. Chronic kidney disease. Plan - Neurological checks q. 4 hourly. - Elevate head of bed - Goal BP is 140-145/75-80 - Continue Eliquis at current home dose. - DVT prophylaxis. - Speech therapy recommendations are appreciated. - The patient will need inpatient rehab. - I personally reviewed the MRI of the brain that revealed extensive white matter ischemic changes at both the cortical and subcortical regions with extensive cortical atrophy particularly in the bilateral frontal and parietal region. - Discussed case with daughter at bed side - Continue supportive medical therapy - PT/OT, recommendations are appreciated - Patient may be managed at a progressive medical unit - Discussed case with RN and daughter, both of which were in the room Diagnosis/Plan: Subjective Subjective Comments No acute events reported According to RN, fluctuation in blood glucose Vital signs were stable overnight Awake, sits up in bed with PT working with him, very cooperative and understands the instructions of PT Daughter at the bed side Active Medications Current Medications Medications (Trade) Dose Ordered Sig/Víctor Route Start Time Stop Time Status Last Admin (D50w (Vial) Inj) 50 ml UNSCH PRN IV PUSH 07/06/17 08:45 (Glucagon Inj) 1 mg UNSCH PRN OTHER 07/06/17 08:45 (NS Flush) 2 ml BID IV FLUSH 07/06/17 09:00 07/08/17 21:56 (NS Flush) 2 ml UNSCH PRN IV FLUSH 07/06/17 08:45 (Pravachol) 40 mg HS PO 07/06/17 21:00 07/09/17 21:00 (Tylenol) 650 mg Q6H PRN PO 07/06/17 08:45 07/08/17 16:58 (Protonix Inj) 40 mg DAILY IV PUSH 07/06/17 10:00 07/10/17 09:01 (Zofran Inj) 4 mg Q6H PRN IV PUSH 07/06/17 08:45 (Albuterol Neb) 2.5 mg Q2HR NEB PRN INH 07/06/17 08:45 Miscellaneous Information 1 Q361D XX 07/06/17 08:45 07/06/17 08:45 (Chlorhexidine 2% Cloth) 3 pack Taper DAILY@04 TOP 07/07/17 04:00 07/03/18 03:59 (Chlorhexidine 2% Cloth) 3 pack UNSCH PRN TOP 07/06/17 08:45 (Britney-Colace) 1 tab BID PO 07/06/17 10:00 07/10/17 09:01 (Milk Of Magnesia Liq) 30 ml Q12H PRN PO 07/06/17 08:45 (Senokot) 17.2 mg Q12H PRN PO 07/06/17 08:45 (Dulcolax Supp) 10 mg DAILY PRN RECTAL 07/06/17 08:45 (Lactulose Liq) 30 ml DAILY PRN PO 07/06/17 08:45 (NS Flush) See Protocol DAILY IV FLUSH 07/07/17 09:00 07/09/17 09:00 (NS Flush) See Protocol UNSCH PRN IV FLUSH 07/06/17 12:15 (Heparin Central Flush) See Protocol DAILY IV FLUSH 07/07/17 09:00 07/10/17 09:04 (Heparin Central Flush) See Protocol UNSCH PRN IV FLUSH 07/06/17 12:15 (NS Flush) UNSCH PRN IV FLUSH 07/06/17 12:15 (NS Flush) SEE PROTOCOL UNSCH PRN IV FLUSH 07/06/17 12:15 (NS Flush) 3 ml UNSCH PRN IV FLUSH 07/06/17 12:15 (Coreg) 6.25 mg Q12HR PO 07/09/17 09:00 07/10/17 09:02 (Eliquis) 5 mg BID PO 07/09/17 09:00 07/10/17 09:02 (Aldactone) 25 mg DAILY PO 07/09/17 09:00 07/10/17 09:02 (Altace) 2.5 mg BID PO 07/09/17 09:00 07/10/17 09:01 (Tricor) 145 mg DAILY PO 07/09/17 09:00 07/10/17 09:01 (Cardizem Cd) 120 mg DAILY PO 07/09/17 09:00 07/10/17 09:05 (NovoLIN R SUPPLEMENTAL SCALE) 1 ACHS03 SLIDE SCALE SQ 07/09/17 17:00 07/10/17 12:46 Allergies Allergies Coded Allergies allopurinol (Verified Allergy, Unknown, 06/29/17) hydrochlorothiazide (Verified Allergy, Unknown, 06/29/17) penicillin G (Unverified Allergy, Unknown, 06/29/17) acetaminophen (Unverified Adverse Reaction, Intermediate, VOMITING, 06/29/17) propoxyphene (Unverified Adverse Reaction, Intermediate, VOMITING, 06/29/17) Uncoded Allergies potassium citrate ( Allergy, Unknown, 06/29/17) Review of Systems All other ROS: ROS reviewed as documented in chart Exam I&O / VS Vital Signs Date Time Temp Pulse Resp B/P (MAP) Pulse Ox O2 Delivery O2 Flow Rate FiO2 07/10/17 08:00 82 07/10/17 04:00 64 27 123/60 (81) 97 07/10/17 00:00 67 29 120/56 (77) 96 07/09/17 20:00 97.9 88 38 144/97 (113) 94 Arterial Line 07/09/17 19:54 98 Exam Comments GENERAL: Awake, alert, daughter at bed side. HEENT: Atraumatic, normocephalic. No jaundice. NECK: Trachea in the midline. No signs of meningeal irritation. CARDIOVASCULAR: Irregularly irregular heart rate. Systolic murmur. LUNGS: Clear to auscultation. No wheezes. GASTROINTESTINAL: Soft abdomen, nontender. MUSCULOSKELETAL: No edema, cyanosis or deformities. NEUROLOGIC: Awake, alert.oriented to person, place and time, mild expressive dysphasia, intact naming, comprehension and reading, slurred speech, less pronounced right facial palsy, mild pyramidal weakness of right UE&LE in the right side, UE weaker than LE, 5-/5 right shoulder abd, elbow and wrist extension, 5-/5 right hip flexion, otherwise 5/5 throughout, right plantar is upgoing/Babinski sign, left plantar is downgoing Objective Radiology Results Last 72 hours Impressions Chest X-Ray 07/09/17 0600 Signed Impressions: Service Date/Time: June 05:16 - CONCLUSION: Cardiomegaly. Bud Cash MD Micro and Labs Laboratory Tests Test 07/09/17 17:25 07/10/17 03:50 Magnesium Level 1.7 1.6 White Blood Count 8.0 Red Blood Count 4.42 Hemoglobin 12.7 Hematocrit 37.8 Mean Corpuscular Volume 85.4 Mean Corpuscular Hemoglobin 28.8 Mean Corpuscular Hemoglobin Concent 33.7 Red Cell Distribution Width 15.2 Platelet Count 141 Mean Platelet Volume 8.0 Blood Urea Nitrogen 23 Creatinine 0.94 Random Glucose 108 Calcium Level 8.4 Phosphorus Level 3.0 Sodium Level 141 Potassium Level 3.7 Chloride Level 108 Carbon Dioxide Level 23.8 Anion Gap 9 Estimat Glomerular Filtration Rate 78 Alyse Pressley MD Jul 10, 2017 16:15
[2017-07-10] MEDS: PRAVASTATIN SOD 40 MG TAB PO SCH (21:50)
[2017-07-11] VITALS (9 sets, daily range): BP systolic 117–193; BP diastolic 60–88; PULSE 60–89; RESP 18–20; TEMP 97.4–98; O2SAT 94–96
[2017-07-11] MEDS: INSULIN NovoLIN REGULAR SUPPLEMENTAL SCALE SQ SCH ×3 (03:15→12:17)
[2017-07-11] MEDS ORDERED: cloNIDine HCL 0.2 MG TAB PO ONE (06:00)
[2017-07-11] MEDS: DILTIAZEM-CD 120 MG CAP ER PO SCH (09:00)
[2017-07-11] MEDS: PANTOPRAZOLE SODIUM 40 MG VIAL IV PUSH SCH (09:40)
[2017-07-11] MEDS: APIXABAN 5 MG TABLET PO SCH (09:41)
[2017-07-11] MEDS: FENOFIBRATE 145 MG TAB PO SCH (09:41)
[2017-07-11] MEDS: DOCUSATE SODIUM 50 MG/SENNA 8.6 MG TAB PO SCH (09:41)
[2017-07-11] MEDS: SPIRONOLACTONE 25 MG TAB PO SCH (09:41)
[2017-07-11] MEDS: CARVEDILOL 6.25 MG TAB PO SCH (09:41)
[2017-07-11] MEDS: RAMIPRIL 2.5 MG CAP PO SCH (09:42)
[2017-07-11] MEDS ORDERED: RAMI2.5C PO (10:57)
[2017-07-11] MEDS ORDERED: NOVORP2 SQ (10:57)
[2017-07-11] MEDS ORDERED: PRAV40TA PO (10:57)
[2017-07-11] MEDS ORDERED: DILT120C50 PO (10:57)
--- NOTE | 2017-07-11 11:41 | HHI.PR ---
Subjective Remarks Paradi Tender Notes: This is a 76-year-old male. Date of admission 07/06/2017. Past medical history includes history of right basal ganglia CVA, dementia disorder NOS, atrial fibrillation, chronic systolic heart failure, hypertension, disc edema, gastroesophageal disease with a history of a gastric ulcer status post appendectomy and clipping 2011, diabetes mellitus poorly controlled. Patient presented to [facility] initially as a level II trauma after being found at home and down for unknown duration of time. Neighbor's had not recently seen the patient and were concerned and called EMS. Patient had a large hematomas and was placed in a c-collar. Incomprehensible groaning sounds. Patient had generalized weakness according to records. NIH score is 23. GCS was 9 now around 11 [id number] as he is currently talking, comprehensibly and spontaneously moving his left upper extremity and left lower extremity CT brain revealed old right basal ganglia CVA in the left occipital encephalomalacia. Patient was in A. fib with RVR with heart rate in the 120s. BMP revealed currently 1.8. Leukocytosis 12.2. Patient received 2 g of cefazolin and DTP 0.5 mg IM 1 Cardiology/ seen the patient. Patient recommended Lopressor 5 mm IV 1 for rate control. Currently on a diltiazem drip to maintain heart rate less than 100. Patient's source of stroke likely embolic. Echocardiogram has been ordered. Last EF 20% with moderate MR/TR and pulmonary pressure 54 mmHg. Patient will likely be a possible candidate for left atrial appendage closure device in 3-4 months if tolerates according to terminal supervisor Dr. 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 CT brain revealed old right basal CVA and cephalization the left occipital lobe. Not a candidate for alteplase secondary to unknown duration of time and apixaban use. CTA head and neck revealed left WET SUIT GLUER stenosis. Generalized plaque in the carotid/carotid bulb the vertebral artery regions otherwise not flow-limiting. He will seeing consultation. MRI of the brain pending. 07/07: Worsening right facial droop/right upper and lower extremity weakness. Patient is more awake and interactive attempting to vocalize. Currently on phenylephrine drip at 20 mics grams from to maintain systolic pressure greater than 180. Cardizem drip added for rate control 07/08: Afebrile. Improved motion and strength in right upper extremity currently 3/4 over 5. Strength almost equal bilateral lower extremity's. Currently in room air. Heart rate better controlled on diltiazem drip at 5 mg an hour. Continues on phenylephrine drip @ 150 mcg per minute 07/09: Currently off all vasopressors. Carvedilol, diltiazem and lisinopril all resumed. Heparin drip discontinued and currently on Apixaban. Strength and movement right upper extremity much improved Hospitalist Notes: 07/10: Seen in his bedroom in the presence of Nurse he is been followed by Neurology specialist, wit Diagnosis of Acute/Subacute ischemic Stroke, History of remote ganglia stroke and left occipital lobe encephalomalacia, dementia, the patient was on Apixaban when this happened and not candidate for TPA, has Atrial Fibrillation with RVR, CAD status post PCI and stenting, recommended to continue Eliquis go to Rehab he is been accepted by [facility] and will be transferred later today, working with PT, OT and ST. 07/11: Stable in his bedroom, recommendations given about lifestyle, he is not smoking since 10 years ago, nurse Azael Av in the room also his Mrs. Nadya Quiroz no nausea, vomit or diarrhea. Objective Vital Signs Date Time Temp Pulse Resp B/P (MAP) Pulse Ox O2 Delivery O2 Flow Rate FiO2 07/11/17 07:46 97.9 87 18 140/66 (90) 94 07/11/17 04:41 89 07/11/17 04:14 67 07/11/17 04:13 76 07/11/17 04:00 97.4 77 20 193/88 (123) 96 07/11/17 00:00 98.0 60 20 158/60 (92) 95 07/10/17 20:48 97.5 86 18 138/70 (92) 96 07/10/17 18:20 97.9 79 18 138/78 (98) 97 07/10/17 17:03 73 07/10/17 17:00 97.9 88 38 144/97 (113) 94 07/10/17 15:00 74 I/O 07/10/17 07/10/17 07/10/17 07/11/17 07/11/17 07/11/17 07:00 15:00 23:00 07:00 15:00 23:00 Intake Total 30 ml 360 ml Output Total 425 ml 600 ml Balance -395 ml -240 ml Intake Oral 30 ml 360 ml Output Urine Total 425 ml 600 ml # Voids 2 1 2 # Bowel Movements 1 0 1 1 Result Diagram: 07/10/1734907/10/17349 Imaging Last Impressions Chest X-Ray 07/09/17 06 Signed Impressions: Service Date/Time: June 05:16 - CONCLUSION: Cardiomegaly. Bud Cash MD Neck CTA 07/06/17600 Signed Impressions: Service Date/Time: Thursday, July 06, 2017 06:10 - CONCLUSION: Scattered plaque at the origin the great vessels, the carotid bulb regions, and proximal internal carotid arteries bilaterally without a significant stenosis seen. Bud Cash MD Head CTA 07/06/17600 Signed Impressions: Service Date/Time: Thursday, July 06, 2017 06:10 - CONCLUSION: Focal stenosis at the proximal left posterior cerebral artery. The distal flow appears normal throughout. Bud Cash MD Head CT 07/06/1741 Signed Impressions: Service Date/Time: Thursday, July 06, 2017 05:36 - CONCLUSION: 1. No acute abnormality is seen. 2. Atrophy. 3. Suspected small vessel ischemic change throughout the white matter. 4. Old lacunar infarct of the right basal ganglia. 5. Mild area of encephalomalacia at the left occipital lobe. Bud Cash MD Cervical Spine CT 07/06/17 0541 Signed Impressions: Service Date/Time: Thursday, July 06, 2017 05:37 - CONCLUSION: 1. No acute bony injury is seen. 2. Degenerative change. Bud Cash MD Brain MRI 07/06/17 0000 Signed Impressions: Service Date/Time: Thursday, July 06, 2017 12:47 - CONCLUSION: Subacute left partial MCA territory stroke. Bud Joseph MD Procedures None Other Results Laboratory Tests Test 07/06/17 05:40 07/06/17 06:30 07/06/17 09:40 07/07/17 04:20 Bedside Hemoglobin 16.3 G/DL Bedside Hematocrit 48.0 % Fibrinogen 414 mg/dL Bedside Sodium 140 MMOL/L Bedside Potassium 4.2 MMOL/L Bedside Chloride 106 MMOL/L Bedside Blood Urea Nitrogen 42 MG/DL Bedside Creatinine 1.8 MG/DL Bedside Glucose 203 MG/DL Total Creatine Kinase 24 U/L Troponin I 0.12 NG/ML Ethyl Alcohol Level LESS THAN 3 MG/DL Urine Opiates Screen NEG Urine Barbiturates Screen NEG Urine Amphetamines Screen NEG Urine Benzodiazepines Screen NEG Urine Cocaine Screen NEG Urine Cannabinoids Screen NEG Nasal Screen MRSA (PCR) MRSA NOT DETECTED Hemoglobin A1c 8.5 % Lactic Acid Level 1.7 mmol/L Triglycerides Level 66 MG/DL Cholesterol Level 135 MG/DL LDL Cholesterol 68 MG/DL HDL Cholesterol 53.6 MG/DL Cholesterol/HDL Ratio 2.51 RATIO Test 07/07/17 09:05 07/08/17 03:44 07/08/17 21:15 07/09/17 03:50 Prothrombin Time 14.2 SEC Prothromb Time International Ratio 1.3 RATIO Blood Urea Nitrogen 32 MG/DL Creatinine 1.18 MG/DL Random Glucose 192 MG/DL Total Protein 7.2 GM/DL Albumin 3.3 GM/DL Calcium Level 8.6 MG/DL Phosphorus Level 2.1 MG/DL Magnesium Level 2.2 MG/DL Alkaline Phosphatase 67 U/L Aspartate Amino Transf (AST/SGOT) 35 U/L Alanine Aminotransferase (ALT/SGPT) 11 U/L Total Bilirubin 0.6 MG/DL Sodium Level 139 MEQ/L Potassium Level 4.1 MEQ/L Chloride Level 109 MEQ/L Carbon Dioxide Level 20.3 MEQ/L Activated Partial Thromboplast Time 111.1 SEC Neutrophils (%) (Auto) 66.1 % Lymphocytes (%) (Auto) 14.9 % Monocytes (%) (Auto) 10.2 % Eosinophils (%) (Auto) 8.5 % Basophils (%) (Auto) 0.3 % Neutrophils # (Auto) 7.1 TH/MM3 Lymphocytes # (Auto) 1.6 TH/MM3 Monocytes # (Auto) 1.1 TH/MM3 Eosinophils # (Auto) 0.9 TH/MM3 Basophils # (Auto) 0.0 TH/MM3 CBC Comment DIFF FINAL Differential Comment Test 07/10/17 03:50 White Blood Count 8.0 TH/MM3 Red Blood Count 4.42 MIL/MM3 Hemoglobin 12.7 GM/DL Hematocrit 37.8 % Mean Corpuscular Volume 85.4 FL Mean Corpuscular Hemoglobin 28.8 PG Mean Corpuscular Hemoglobin Concent 33.7 % Red Cell Distribution Width 15.2 % Platelet Count 141 TH/MM3 Mean Platelet Volume 8.0 FL Blood Urea Nitrogen 23 MG/DL Creatinine 0.94 MG/DL Random Glucose 108 MG/DL Calcium Level 8.4 MG/DL Phosphorus Level 3.0 MG/DL Magnesium Level 1.6 MG/DL Sodium Level 141 MEQ/L Potassium Level 3.7 MEQ/L Chloride Level 108 MEQ/L Carbon Dioxide Level 23.8 MEQ/L Anion Gap 9 MEQ/L Estimat Glomerular Filtration Rate 78 ML/MIN Objective Remarks GENERAL: No acute distress. SKIN: Warm and dry. Hematoma without current active bleeding HEAD: Normocephalic. EYES: Pupils equal and round around 3 mm bilaterally and reactive. No scleral icterus. No injection or drainage. ENT: No nasal bleeding or discharge. Mucous membranes pink and moist. NECK: Trachea midline. No JVD. CARDIOVASCULAR: IRR. S1, S2. No S4. 1/6 systolic murmur RESPIRATORY: Clear to auscultation. Breath sounds equal bilaterally. GASTROINTESTINAL: Abdomen soft, non-tender, nondistended. Hypoactive bowel sounds are appreciated MUSCULOSKELETAL: Extremities without edema. No obvious deformities. NEUROLOGICAL: Awake and alert. Right facial droop somewhat improved. Strength 5 out of 5 left upper extremity. 5 out of 5 left lower extremity. 4out of 5 right upper 5 out of 5 lower extremity. Improved sensation to light touch and pinprick bilaterally. DTRs 1+ bilateral upper and lower extremities including brachial, patellar and Achilles. Pronator drift right upper extremity. Gait was not assessed. Medications and IVs Current Medications Medications (Trade) Dose Ordered Sig/Víctor Route Start Time Stop Time Status Last Admin (D50w (Vial) Inj) 50 ml UNSCH PRN IV PUSH 07/06/17 08:45 (Glucagon Inj) 1 mg UNSCH PRN OTHER 07/06/17 08:45 (NS Flush) 2 ml BID IV FLUSH 07/06/17 09:00 07/10/17 21:55 (NS Flush) 2 ml UNSCH PRN IV FLUSH 07/06/17 08:45 (Pravachol) 40 mg HS PO 07/06/17 21:00 07/10/17 21:50 (Tylenol) 650 mg Q6H PRN PO 07/06/17 08:45 07/08/17 16:58 (Protonix Inj) 40 mg DAILY IV PUSH 07/06/17 10:00 07/11/17 09:40 (Zofran Inj) 4 mg Q6H PRN IV PUSH 07/06/17 08:45 (Albuterol Neb) 2.5 mg Q2HR NEB PRN INH 07/06/17 08:45 Miscellaneous Information 1 Q361D XX 07/06/17 08:45 07/06/17 08:45 (Chlorhexidine 2% Cloth) 3 pack Taper DAILY@04 TOP 07/07/17 04:00 07/03/18 03:59 (Chlorhexidine 2% Cloth) 3 pack UNSCH PRN TOP 07/06/17 08:45 (Britnye-Colace) 1 tab BID PO 07/06/17 10:00 07/11/17 09:41 (Milk Of Magnesia Liq) 30 ml Q12H PRN PO 07/06/17 08:45 (Senokot) 17.2 mg Q12H PRN PO 07/06/17 08:45 (Dulcolax Supp) 10 mg DAILY PRN RECTAL 07/06/17 08:45 (Lactulose Liq) 30 ml DAILY PRN PO 07/06/17 08:45 (NS Flush) See Protocol DAILY IV FLUSH 07/07/17 09:00 07/09/17 09:00 (NS Flush) See Protocol UNSCH PRN IV FLUSH 07/06/17 12:15 (Heparin Central Flush) See Protocol DAILY IV FLUSH 07/07/17 09:00 07/10/17 09:04 (Heparin Central Flush) See Protocol UNSCH PRN IV FLUSH 07/06/17 12:15 (NS Flush) UNSCH PRN IV FLUSH 07/06/17 12:15 (NS Flush) SEE PROTOCOL UNSCH PRN IV FLUSH 07/06/17 12:15 (NS Flush) 3 ml UNSCH PRN IV FLUSH 07/06/17 12:15 (Coreg) 6.25 mg Q12HR PO 07/09/17 09:00 07/11/17 09:41 (Eliquis) 5 mg BID PO 07/09/17 09:00 07/11/17 09:41 (Aldactone) 25 mg DAILY PO 07/09/17 09:00 07/11/17 09:41 (Altace) 2.5 mg BID PO 07/09/17 09:00 07/11/17 09:42 (Tricor) 145 mg DAILY PO 07/09/17 09:00 07/11/17 09:41 (Cardizem Cd) 120 mg DAILY PO 07/09/17 09:00 07/11/17 09:00 (NovoLIN R SUPPLEMENTAL SCALE) 1 [id number] SLIDE SCALE SQ 07/09/17 17:00 07/11/17 03:15 A/P Assessment and Plan CVA History of right basal ganglia CVA Dementia disorder NOS CT brain 07/06 revealed old right basal ganglia CVA. Encephalization left occipital lobe CTA brain - focal left WET SUIT GLUER stenosis. CTA neck - generalized plaquing with no flow-limiting stenosis noted Dr. Pressley - neurology - not a candidate for alteplase secondary to unknown duration of time down and currently on Apixaban Note aspirin discontinued by cardiology to prior history of GI bleeding Goal blood pressure control to 140/80 Head of bed at 30 MRI brain 07/06 subacute left parietal CVA and MCA distribution? PT/OT/ST evaluate and treat CV: Atrial fibrillation with rapid ventricular response Chronic systolic heart failure ejection fraction 20% Coronary artery disease status post stent 3 Dyslipidemia Hypertension Pulmonary Hypertension PFO Dr. Ohara - cardiology following. Tysabri discontinued today 2-D echocardiogram 05/26 - EF 20%. LV dilatation. Moderate MR/TR. PAP 54 mmHg 2-D echocardiogram completed 07/07 revealed EF 20%. Global hypokinesis. Dilated left ventricle. PFO is present. No atrial level shunt is observed with agitated saline contrast administration. Mild MR/TR. PAP 70 mmHg Home medications include carvedilol 6.25 mg twice a day, ramipril 1.25 mg twice a day and Aldactone 25 mg daily. These have been resumed along with diltiazem at 120 no grams daily -Patient is on rosuvastatin 20 mg by mouth daily for dyslipidemia/hospital substitution pravastatin 40 mg daily. Along with fenofibrate 145 mg daily for dyslipidemia EKG on admission revealed A. fib with RVR. No ischemic changes. Per cardiology patient's heart is usually elevated Cardiology signed off the case Resp: Prior tobaccoism Nasal cannula to maintain saturations greater than equal to 92% Incentive spirometry while awake Follow-up on chest x-ray Strict aspiration precautions GI: Gastroesophageal reflux disease History of upper GI bleed - gastric ulcer status post clipping 2011 Mechanical soft diet Pantoprazole for GI prophylaxis. Patient is on omeprazole 20 mg by mouth daily for gastroesophageal reflux disease Docusate sodium/senna 1 tablet twice a day for bowel regimen Endo: Diabetes mellitus Euglycemia Home medications include metformin 500 mg daily, glimepiride 4 mg twice a day and linagliptin 18 mg/3 milliliters 0.6 mg subcutaneous daily Currently on sliding scale with Accu-Cheks before meals/at bedtime to maintain euglycemia/high regimen Novulin R continue Home Medicines at Rehab if recommended by Physicians. at this time will go on sliding scale. Renal: Chronic kidney disease stage IIIa Creatinine around baseline currently 1.8. Currently 1.0 Monitor urine output Accurate I's and O's Avoid nephrotoxic medication Heme: Chronic Apixaban use Monitor CBC daily. Follow trends. Coags within normal limits Does not meet transfusion thresholds at this time Currently on Apixaban 5 mill grams twice a day ID: Monitor for infection Status post tetanus injection of 50 mg IM 1 and cefazolin 2 g IV 1 for hematoma MSK: PT/OT evaluate and treat FEN: Replace electrolytes as clinically indicated Access -Left PICC line day #4 placed 07/06 - Right femoral arterial line day 3 placed 07/07. Discontinued 07/09 Prophylaxis - GI - pantoprazole - DVT - SCDs/pharmacological prophylaxis Apixaban Discharge Planning Discharge to [facility] today Obey Tavera MD Jul 11, 2017 11:40
--- NOTE | 2017-07-11 11:42 | HHI.DS ---
Discharge Summary Admission Date Jul 06, 2017 at 07:09 Discharge Date: Jul 11, 2017 Admitting Diagnosis Ischemic [place] (1) Stroke ICD Code: I63.9 - Stroke Diagnosis: Principal Status: Acute (2) Atrial fibrillation with rapid ventricular response ICD Code: I48.91 - Unspecified atrial fibrillation Diagnosis: Principal Status: Chronic (3) Pulmonary hypertension ICD Code: I27.20 - Pulmonary hypertension, unspecified Diagnosis: Secondary Status: Chronic (4) History of CVA (cerebrovascular accident) ICD Code: Z86.73 - Personal history of transient ischemic attack (TIA), and cerebral infarction without residual deficits Diagnosis: Secondary (5) Gastroesophageal reflux disease ICD Code: K21.9 - Gastro-esophageal reflux disease without esophagitis Diagnosis: Secondary (6) Dementia ICD Code: F03.90 - Unspecified dementia without behavioral disturbance Diagnosis: Principal (7) Diabetes mellitus ICD Code: E11.9 - Type 2 diabetes mellitus without complications Diagnosis: Principal (8) History of gastric ulcer ICD Code: Z87.19 - Personal history of other diseases of the digestive system Diagnosis: Secondary (9) Coronary artery disease ICD Code: I25.10 - Atherosclerotic heart disease of [place] coronary artery without angina pectoris Diagnosis: Secondary (10) Leukocytosis ICD Code: D72.829 - Elevated white blood cell count, unspecified Diagnosis: Principal (11) Chronic kidney disease, stage 3a ICD Code: N18.3 - Chronic kidney disease, stage 3 (moderate) Diagnosis: Secondary (12) Hyperlipidemia ICD Code: E78.5 - Hyperlipidemia, unspecified Diagnosis: Secondary Status: Chronic (13) Hypertension ICD Code: I10 - Essential (primary) hypertension Diagnosis: Principal Status: Chronic (14) Arteriosclerotic heart disease (ASHD) ICD Code: I25.10 - Atherosclerotic heart disease of [place] coronary artery without angina pectoris Diagnosis: Secondary Status: Chronic (15) Acute systolic CHF (congestive heart failure) ICD Code: I50.21 - Acute systolic (congestive) heart failure Diagnosis: Secondary Status: Resolved (16) Memory impairment ICD Code: R41.3 - Memory impairment Diagnosis: Secondary Status: Acute (17) Hematoma ICD Code: T14.8 - Hematoma Diagnosis: Principal Status: Acute (18) Cardiomyopathy ICD Code: I42.9 - Cardiomyopathy, unspecified Diagnosis: Secondary Status: Chronic (19) Memory changes ICD Code: R41.3 - Memory changes Diagnosis: Principal Status: Acute Procedures None Brief History - From Admission This is a 76-year-old male. Date of admission 07/06/2017. Past medical history includes history of right basal ganglia CVA, dementia disorder NOS, atrial fibrillation, chronic systolic heart failure, hypertension, disc edema, gastroesophageal disease with a history of a gastric ulcer status post appendectomy and clipping 2011, diabetes mellitus poorly controlled. Patient presented to [facility] initially as a level II trauma after being found at home and down for unknown duration of time. Neighbor's had not recently seen the patient and were concerned and called EMS. Patient had a large hematomas and was placed in a c-collar. Incomprehensible groaning sounds. Patient had generalized weakness according to records. NIH score is 23. GCS was 9 now around 11 E4V2M5 as he is currently talking, comprehensibly and spontaneously moving his left upper extremity and left lower extremity CT brain revealed old right basal ganglia CVA in the left occipital encephalomalacia. Patient was in A. fib with RVR with heart rate in the 120s. BMP revealed currently 1.8. Leukocytosis 12.2. Patient received 2 g of cefazolin and DTP 0.5 mcg IM 1 Cardiology/ seen the patient. Patient recommended Lopressor 5 mm IV 1 for rate control. Currently on a diltiazem drip to maintain heart rate less than 100. Patient's source of stroke likely embolic. Echocardiogram has been ordered. Last EF 20% with moderate MR/TR and pulmonary pressure 54 mmHg. Patient will likely be a possible candidate for left atrial appendage closure device in 3-4 months if tolerates according to science instructor Dr. 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 CT brain revealed old right basal CVA and cephalization the left occipital lobe. Not a candidate for alteplase secondary to unknown duration of time and apixaban use. CTA head and neck revealed left FR[employer]ER stenosis. Generalized plaque in the carotid/carotid bulb the vertebral artery regions otherwise not flow-limiting. He will seeing consultation. MRI of the brain pending. CBC/BMP: 07/10/17 0350 07/10/17 0350 Significant Findings Laboratory Tests Test 11/29/17 12:35 07/08/17 17:35 07/08/17 21:15 07/09/17 03:50 Activated Partial Thromboplast Time 33.6 SEC (24.3-30.1) 61.4 SEC (24.3-30.1) 111.1 SEC (24.3-30.1) Monocytes (%) (Auto) 10.2 % (0.0-8.0) Eosinophils (%) (Auto) 8.5 % (0.0-4.0) Monocytes # (Auto) 1.1 TH/MM3 (0-0.9) Eosinophils # (Auto) 0.9 TH/MM3 (0-0.4) Blood Urea Nitrogen 29 MG/DL (7-18) Random Glucose 134 MG/DL (74-106) Calcium Level 8.3 MG/DL (8.5-10.1) Chloride Level 112 MEQ/L (98-107) Estimat Glomerular Filtration Rate 72 ML/MIN (>89) Test 07/09/17 17:25 07/10/17 03:50 Red Blood Count 4.42 MIL/MM3 (4.50-5.90) Hemoglobin 12.7 GM/DL (13.0-17.0) Hematocrit 37.8 % (39.0-51.0) Platelet Count 141 TH/MM3 (150-450) Blood Urea Nitrogen 23 MG/DL (7-18) Random Glucose 108 MG/DL (74-106) Calcium Level 8.4 MG/DL (8.5-10.1) Chloride Level 108 MEQ/L (98-107) Estimat Glomerular Filtration Rate 78 ML/MIN (>89) Imaging Last Impressions Chest X-Ray 07/09/17 06 Signed Impressions: Service Date/Time: June 05:16 - CONCLUSION: Cardiomegaly. uBd Cash MD Neck CTA 07/06/17600 Signed Impressions: Service Date/Time: Thursday, July 06, 2017 06:10 - CONCLUSION: Scattered plaque at the origin the great vessels, the carotid bulb regions, and proximal internal carotid arteries bilaterally without a significant stenosis seen. Bud Cash MD Head CTA 07/06/17600 Signed Impressions: Service Date/Time: Thursday, July 06, 2017 06:10 - CONCLUSION: Focal stenosis at the proximal left posterior cerebral artery. The distal flow appears normal throughout. Bud Cash MD Head CT 07/06/17 0541 Signed Impressions: Service Date/Time: Thursday, July 06, 2017 05:36 - CONCLUSION: 1. No acute abnormality is seen. 2. Atrophy. 3. Suspected small vessel ischemic change throughout the white matter. 4. Old lacunar infarct of the right basal ganglia. 5. Mild area of encephalomalacia at the left occipital lobe. Bud Cash MD Cervical Spine CT 07/06/17 0541 Signed Impressions: Service Date/Time: Thursday, July 06, 2017 05:37 - CONCLUSION: 1. No acute bony injury is seen. 2. Degenerative change. Bud Cash MD Brain MRI 07/06/17 0000 Signed Impressions: Service Date/Time: Thursday, July 06, 2017 12:47 - CONCLUSION: Subacute left partial MCA territory stroke. Bud Joseph MD PE at Discharge GENERAL: No acute distress. SKIN: Warm and dry. Hematoma without current active bleeding HEAD: Normocephalic. EYES: Pupils equal and round around 3 mm bilaterally and reactive. No scleral icterus. No injection or drainage. ENT: No nasal bleeding or discharge. Mucous membranes pink and moist. NECK: Trachea midline. No JVD. CARDIOVASCULAR: IRR. S1, S2. No S4. 1/6 systolic murmur RESPIRATORY: Clear to auscultation. Breath sounds equal bilaterally. GASTROINTESTINAL: Abdomen soft, non-tender, nondistended. Hypoactive bowel sounds are appreciated MUSCULOSKELETAL: Extremities without edema. No obvious deformities. NEUROLOGICAL: Awake and alert. Right facial droop somewhat improving. Hospital Course [employer] Engineer Notes: This is a 76-year-old male. Date of admission 07/06/2017. Past medical history includes history of right basal ganglia CVA, dementia disorder NOS, atrial fibrillation, chronic systolic heart failure, hypertension, disc edema, gastroesophageal disease with a history of a gastric ulcer status post appendectomy and clipping 2011, diabetes mellitus poorly controlled. Patient presented to [facility] initially as a level II trauma after being found at home and down for unknown duration of time. Neighbor's had not recently seen the patient and were concerned and called EMS. Patient had a large hematomas and was placed in a c-collar. Incomprehensible groaning sounds. Patient had generalized weakness according to records. NIH score is 23. GCS was 9 now around 11 E4V2M5 as he is currently talking, comprehensibly and spontaneously moving his left upper extremity and left lower extremity CT brain revealed old right basal ganglia CVA in the left occipital encephalomalacia. Patient was in A. fib with RVR with heart rate in the 120s. BMP revealed currently 1.8. Leukocytosis 12.2. Patient received 2 g of cefazolin and DTP 0.5 mg IM 1 Cardiology/ seen the patient. Patient recommended Lopressor 5 mm IV 1 for rate control. Currently on a diltiazem drip to maintain heart rate less than 100. Patient's source of stroke likely embolic. Echocardiogram has been ordered. Last EF 20% with moderate MR/TR and pulmonary pressure 54 mmHg. Patient will likely be a possible candidate for left atrial appendage closure device in 3-4 months if tolerates according to science instructor Dr. 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 CT brain revealed old right basal CVA and cephalization the left occipital lobe. Not a candidate for alteplase secondary to unknown duration of time and apixaban use. CTA head and neck revealed left [employer] stenosis. Generalized plaque in the carotid/carotid bulb the vertebral artery regions otherwise not flow-limiting. He will seeing consultation. MRI of the brain pending. 07/07: Worsening right facial droop/right upper and lower extremity weakness. Patient is more awake and interactive attempting to vocalize. Currently on phenylephrine drip at 20 mics grams from to maintain systolic pressure greater than 180. Cardizem drip added for rate control 07/08: Afebrile. Improved motion and strength in right upper extremity currently 3/4 over 5. Strength almost equal bilateral lower extremity's. Currently in room air. Heart rate better controlled on diltiazem drip at 5 mg an hour. Continues on phenylephrine drip @ 150 mcg per minute 07/09: Currently off all vasopressors. Carvedilol, diltiazem and lisinopril all resumed. Heparin drip discontinued and currently on Apixaban. Strength and movement right upper extremity much improved Hospitalist Notes: 07/10: Seen in his bedroom in the presence of Nurse he is been followed by Neurology specialist, wit Diagnosis of Acute/Subacute ischemic Stroke, History of remote ganglia stroke and left occipital lobe encephalomalacia, dementia, the patient was on Apixaban when this happened and not candidate for TPA, has Atrial Fibrillation with RVR, CAD status post PCI and stenting, recommended to continue Eliquis go to Rehab he is been accepted by [facility] and will be transferred later today, working with PT, OT and ST. 07/11: Stable in his bedroom, recommendations given about lifestyle, he is not smoking since 10 years ago, nurse Av in the room also his Mrs. Nadya Quiroz no nausea, vomit or diarrhea. Assessment and Plan CVA History of right basal ganglia CVA Dementia disorder NOS CT brain 07/06 revealed old right basal ganglia CVA. Encephalization left occipital lobe CTA brain - focal left FR[employer] stenosis. CTA neck - generalized plaquing with no flow-limiting stenosis noted Dr. Pressley - neurology - not a candidate for alteplase secondary to unknown duration of time down and currently on Apixaban Note aspirin discontinued by cardiology to prior history of GI bleeding Goal blood pressure control to 140/80 Head of bed at 30 MRI brain 07/06 subacute left parietal CVA and MCA distribution? PT/OT/ST evaluate and treat CV: Atrial fibrillation with rapid ventricular response Chronic systolic heart failure ejection fraction 20% Coronary artery disease status post stent 3 Dyslipidemia Hypertension Pulmonary Hypertension PFO Dr. Ohara - cardiology following. Tysabri discontinued today 2-D echocardiogram 05/26 - EF 20%. LV dilatation. Moderate MR/TR. PAP 54 mmHg 2-D echocardiogram completed 07/07 revealed EF 20%. Global hypokinesis. Dilated left ventricle. PFO is present. No atrial level shunt is observed with agitated saline contrast administration. Mild MR/TR. PAP 70 mmHg Home medications include carvedilol 6.25 mg twice a day, ramipril 1.25 mg twice a day and Aldactone 25 mg daily. These have been resumed along with diltiazem at 120 no grams daily -Patient is on rosuvastatin 20 mg by mouth daily for dyslipidemia/hospital substitution pravastatin 40 mg daily. Along with fenofibrate 145 mg daily for dyslipidemia EKG on admission revealed A. fib with RVR. No ischemic changes. Per cardiology patient's heart is usually elevated Cardiology signed off the case Resp: Prior tobaccoism Nasal cannula to maintain saturations greater than equal to 92% Incentive spirometry while awake Follow-up on chest x-ray Strict aspiration precautions GI: Gastroesophageal reflux disease History of upper GI bleed - gastric ulcer status post clipping 2011 Mechanical soft diet Pantoprazole for GI prophylaxis. Patient is on omeprazole 20 mg by mouth daily for gastroesophageal reflux disease Docusate sodium/senna 1 tablet twice a day for bowel regimen Endo: Diabetes mellitus Euglycemia Home medications include metformin 500 mg daily, glimepiride 4 mg twice a day and linagliptin 18 mg/3 milliliters 0.6 mg subcutaneous daily Currently on sliding scale with Accu-Cheks before meals/at bedtime to maintain euglycemia/high regimen Novulin R continue Home Medicines at Rehab if recommended by Physicians. at this time will go on sliding scale. Renal: Chronic kidney disease stage IIIa Creatinine around baseline currently 1.8. Currently 1.0 Monitor urine output Accurate I's and O's Avoid nephrotoxic medication Heme: Chronic Apixaban use Monitor CBC daily. Follow trends. Coags within normal limits Does not meet transfusion thresholds at this time Currently on Apixaban 5 mill grams twice a day ID: Monitor for infection Status post tetanus injection of 50 mg IM 1 and cefazolin 2 g IV 1 for hematoma MSK: PT/OT evaluate and treat FEN: Replace electrolytes as clinically indicated Access -Left PICC line day #4 placed 07/06 - Right femoral arterial line day 3 placed 07/07. Discontinued 07/09 Prophylaxis - GI - pantoprazole - DVT - SCDs/pharmacological prophylaxis Apixaban Discharge Planning Discharge to [facility] today Pt Condition on Discharge: Stable Discharge Disposition: Rehab Inpatient Discharge Time: > 30 minutes Discharge Instructions DIET: Follow Instructions for: Heart Healthy Diet, Diabetic Diet Activities you can perform: Regular-No Restrictions Obey Tavera MD Jul 11, 2017 11:42
== END 2017-07-11 14:07 | DRG 64 ==
LOC: NEPC 05:34 → NEDA 07:09 → N03A 09:12 → N05B 07-10 18:07
PROVIDERS: ADMIT Internal Medicine; ATTEND Internal Medicine
PROC: 02H633Z Insertion of Infusion Device into Right Atrium, Percutaneous Approach (ICD-10-PCS; 2017-07-06)
PROC: 04HY32Z Insertion of Monitoring Device into Lower Artery, Percutaneous Approach (ICD-10-PCS; principal; 2017-07-07)
DX: I63.8 Other cerebral infarction (principal); I50.23 Acute on chronic systolic (congestive) heart failure; I66.22 Occlusion and stenosis of left posterior cerebral artery; I42.9 Cardiomyopathy, unspecified; E11.22 Type 2 diabetes mellitus with diabetic chronic kidney disease; G81.91 Hemiplegia, unspecified affecting right dominant side; E83.42 Hypomagnesemia; F03.90 Unspecified dementia, unspecified severity, without behavioral disturbance, psychotic disturbance, mood disturbance, and anxiety; I48.2 Chronic atrial fibrillation; R47.01 Aphasia; Q21.1 Atrial septal defect; I13.0 Hypertensive heart and chronic kidney disease with heart failure and stage 1 through stage 4 chronic kidney disease, or unspecified chronic kidney disease; I27.20 Pulmonary hypertension, unspecified; N18.3 Chronic kidney disease, stage 3 (moderate); E78.5 Hyperlipidemia, unspecified; I25.2 Old myocardial infarction; I25.10 Atherosclerotic heart disease of native coronary artery without angina pectoris; R29.810 Facial weakness; K21.9 Gastro-esophageal reflux disease without esophagitis; E78.00 Pure hypercholesterolemia, unspecified; E83.39 Other disorders of phosphorus metabolism; R29.723 NIHSS score 23; R40.2422 Glasgow coma scale score 9-12, at arrival to emergency department; G93.89 Other specified disorders of brain; I08.3 Combined rheumatic disorders of mitral, aortic and tricuspid valves; Z79.01 Long term (current) use of anticoagulants; Z79.82 Long term (current) use of aspirin; Z79.84 Long term (current) use of oral hypoglycemic drugs; Z86.73 Personal history of transient ischemic attack (TIA), and cerebral infarction without residual deficits; Z87.442 Personal history of urinary calculi; Z87.891 Personal history of nicotine dependence; Z88.0 Allergy status to penicillin; Z95.5 Presence of coronary angioplasty implant and graft
CPT/HCPCS: 36556; 36569; 70450; 70496; 70498; 70551; 71010; 72125; 76937; 80048; 80053; 80061; 80307; 82435; 82550; 82565; 82947; 82948; 83036; 83605; 83735; 84100; 84132; 84295; 84484; 84520; 85025; 85027; 85384; 85610; 85730; 86850; 86900; 86901; 87641; 90471; 90715; 93005; 93306; 94150; 96374; 96375; C9113; J0690; J1160; J1642; J1644; J1940; J2370; J3475; J3480; J7030; J7040; J7050; J7060; P9612; Q9967